=== PATIENT | male | born 1935 | race Caucasian/White ===

== ENCOUNTER 2019-09-21 11:05 | Inpatient (IN) ==
[2019-09-21] MEDS ORDERED: IOPAMIDOL 100 ML BOTTLE IV ONE (11:06)
[2019-09-21] MEDS ORDERED: ONDANSETRON 4 MG/2 ML VIAL IV ONE (11:13)
--- NOTE | 2019-09-21 11:24 | Emergency Department Note ---
Abdominal Pain HPI - General Chief Complaint: Abdominal Pain Stated Complaint: abdominal pain Time Seen by Provider: 09/21/19 11:08 Mode of arrival: ambulatory - History of Present Illness HPI Narrative: Reason for visit: She reports right lower abdominal quadrant pain at 10/10. He reports that this pain started abruptly at 9 AM this morning. Denies prior illness or symptoms to this. Patient reports waking up at 4 AM this morning and eating a sandwich with no issues. Reports his last bowel movement as yesterday and normal. Denies recent nausea vomiting or constipation. He reports that the moment he nausea. He denies recent illness, this of breath, chest pain, palpations or noticeable weakness. Reports the pain is specific to his right lower quadrant does not radiate. Reports the pain is constant and stabbing. Pain does not creaser relief with moderate palpation. No noticeable increase with rovesing's test. - Related Data Home Medications Medication Instructions Recorded Confirmed Albuterol Sulfate [Albuterol 8.5 gm IH Q4H 06/02/15 09/21/19 Sulfate Hfa] Ezetimibe [Zetia] 10 mg PO DAILY 06/02/15 09/21/19 Latanoprost Ophth Drops [Xalatan 1 gtt OS HS 06/02/15 09/21/19 Ophth Drops] Tiotropium [place] [Spiriva] 18 mcg INH DAILY 06/02/15 09/21/19 amlodipine 10 mg tablet 10 mg PO QAM tab 05/06/19 09/21/19 carboxymethylcellulose sodium 0.5 4 drp OPHTHALMIC QDAY ml 05/06/19 09/21/19 % eye drops clopidogrel 300 mg tablet 75 mg PO .COMPLEX 05/06/19 09/21/19 lisinopril 20 mg tablet 40 mg PO QAM tab 05/06/19 09/21/19 metoprolol tartrate 25 mg tablet 50 mg PO QDAY tab 05/06/19 09/21/19 famotidine 10 mg tablet 10 mg PO BID tab 08/25/19 09/21/19 Brimonidine Tartrate 15 ml OP DAILY 09/21/19 09/21/19 Cholecalciferol (Vitd3)/Vit K2 1 tab PO DAILY 09/21/19 09/21/19 [Dosoquin Tablet] Allergies Allergy/AdvReac Type Severity Reaction Status Date / Time cilostazol Allergy Unknown Unknown Verified 08/25/19 08:48 hydrochlorothiazide Allergy Unknown Unknown Verified 08/25/19 08:48 meloxicam Allergy Unknown Unknown Verified 08/25/19 08:48 pravastatin Allergy Unknown Unknown Verified 08/25/19 08:48 simvastatin Allergy Unknown Unknown Verified 08/25/19 08:48 Sulfa (Sulfonamide Allergy Unknown Unknown Verified 08/25/19 08:48 Antibiotics) Cilostazol Allergy Unknown Unknown Uncoded 08/25/19 08:48 Review of Systems Constitutional: Denies: fever, chills, weakness Eyes: Denies: vision change ENT ED: Denies: ear pain, throat pain Cardiovascular: Denies: chest pain, palpitations, dyspnea on exertion Respiratory: Denies: shortness of breath, cough Gastrointestinal: Reports: as per HPI, abdominal pain, nausea. Denies: vomiting, diarrhea, constipation, hematochezia Genitourinary: Denies: dysuria, frequency, urgency Musculoskeletal: Denies: back pain, joint pain Neurological: Denies: headache, weakness, numbness, confusion Endocrine: Denies: fatigue Hematological/Lymphatic: Denies: easy bleeding, easy bruising, lymphadenopathy Allergic/Immunologic: Denies: facial swelling Abdominal Pain PMH - Past Medical History Medical history: Reports: non-contributory, COPD, DVT (Describes history of blood clots upper thighs in the iliac area. States history of stents in this area.). Denies: atrial fibrillation, renal disease Denies: diverticulitis Surgical history ED: Reports: other (Reports history of upper left lobectomy of the lung.) - Social History Smoking status: Former smoker Physical Exam General appearance: alert, anxious (Due to pain, noticeable guarding the right lower quadrant.) Head: atraumatic, normocephalic, normal inspection Eye: Present: normal appearance, PERRL ENT: Present: normal exam, normal oropharynx, mucous membranes moist Neck: Present: normal inspection, full ROM, trachea midline. Absent: tenderness, lymphadenopathy Chest: Present: normal inspection, symmetric chest wall rise. Absent: tenderness Respiratory: Present: wheezes. Absent: normal lung sounds bilaterally (Patient reports history of left lung removal. I actually detect right lung. I do detect lung sounds in the left upper lobe, this may be due to resonance.), respiratory distress, accessory muscle use, prolonged expiratory phase Cardiovascular: Present: regular rate, normal rhythm, normal heart sounds Abdominal: Present: tenderness, guarding, normal bowel sounds. Absent: distention, rebound, organomegaly Extremities: Present: normal inspection, full ROM. Absent: tenderness, joint swelling Course Course Narrative: Plan is to control patient's pain and to form diagnostics to investigate source of right lower quadrant pain. The patient's age test of the BUN/creatinine will be performed via Chem-8 test prior to abdominal CT exam. A call was made to the surgeon for this patient. I talked to him. He has discussed that most likely treatment for this patient will be nonsurgical due to his age and history. I have discussed this patient with Dr. Larios. He will be by to see the patient screen for admission. Vital Signs Temperature 96.7 F L 09/21/19 11:14 Pulse Rate 86 09/21/19 11:14 Respiratory Rate 20 09/21/19 11:14 Blood Pressure 141/67 09/21/19 11:14 Pulse Oximetry (%) 98 09/21/19 11:14 Temperature 96.7 F L 09/21/19 11:14 Pulse Rate 99 H 09/21/19 14:57 Respiratory Rate 20 09/21/19 11:14 Blood Pressure 116/66 09/21/19 14:41 Pulse Oximetry (%) 97 09/21/19 14:57 Abdominal Pain - Differential Diagnosis Differential Diagnosis: Likely: abdominal pain, acute appendicitis, calculus of kidney, diverticulitis - Lab Data Result diagrams: 09/21/19 11:20 09/21/19 11:20 Lab Results 09/21/19 09/21/19 09/21/19 Range/Units 11:20 11:20 12:57 WBC 15.6 H (4.5-11.0) K/mcL RBC 4.36 L (4.50-5.90) M/mcL Hgb 13.8 (13.5-16.5) g/dL Hct 41.6 (41.0-55.0) % POC Hct 44.0 (41.0-55.0) % MCV 95.4 (80.0-100.0) fL MCH 31.7 (26.0-34.0) pg MCHC 33.2 (31.0-36.0) g/dL RDW 12.5 (11.5-14.5) % Plt Count 344 (140-440) K/mcL MPV 8.5 (7.4-10.4) fL Gran % 76.7 (38.0-78.0) % Lymph % (Auto) 12.8 L (15.5-49.0) % Kerr % (Auto) 9.6 (1.0-12.0) % Eos % (Auto) 0.6 (0.0-7.0) % Baso % (Auto) 0.3 (0.0-2.0) % Gran # 12.0 H (1.8-8.0) K/mcL Lymph # (Auto) 2.0 (1.5-4.8) K/mcL Kerr # (Auto) 1.5 H (0.1-0.9) K/mcL Eos # (Auto) 0.1 (0.0-0.7) K/mcL Baso # (Auto) 0 (0.0-0.3) K/mcL POC Sodium 136 (133-145) mmol/L Sodium 136 (133-145) mmol/L POC Potassium 4.4 (3.3-5.1) mmol/L Potassium 4.4 (3.3-5.1) mmol/L POC Chloride 103 (96-108) mmol/L Chloride 99 (96-108) mmol/L Carbon Dioxide 23 (22-30) mmol/L POC Total CO2 25 (22-30) mmol/L Anion Gap 14.0 (8-16) POC BUN 16 (8-23) mg/dl BUN 15 (8-23) mg/dl Creatinine 0.9 (0.7-1.2) mg/dl POC Creatinine 1.0 (0.7-1.2) mg/dl GFR Calculation 79 Glucose 106 H (70-105) mg/dL POC Glucose 106 H (70-105) mg/dL Calcium 10.0 (8.6-10.4) mg/dl POC WB Ioniz Calcium 1.24 (1.16-1.32) mmol/L Total Bilirubin 0.6 (0.0-1.0) mg/dL AST 19 (0-37) U/l ALT 13 (0-40) U/l Alkaline Phosphatase 90 (39-117) U/L Total Protein 8.1 (5.9-8.4) gm/dL Albumin 4.8 (3.2-5.2) gm/dL Globulin 3.3 (2.2-3.7) gm/dL Albumin/Globulin Ratio 1.5 (1.0-2.3) Urine Color Yellow Urine Appearance Clear Urine pH 6.0 (5.0-9.0) Ur Specific [place] 1.036 H (1.000-1.035) Urine Protein Neg (NEG) mg/dL Urine Glucose (UA) Negative (NEG) mg/dL Urine Ketones Neg (NEG) mg/dL Urine Occult Blood Neg (<0.03) mg/dL Urine Nitrate Neg (NEG) Urine Bilirubin Neg (NEG) mg/dL Urine Urobilinogen Neg (NEG) mg/dL Ur Leukocyte Esterase Neg (NEG) /uL Ur Culture Indicated? No Disposition Pt seen by TEA [facility]ENDER/PA only: No Clinical Impression: Appendicitis Qualifiers: Acute appendicitis type: with localized peritonitis Appendicitis gangrene presence: without gangrene Appendicitis perforation presence: without perforation Appendicitis abscess presence: without abscess Disposition: Xfer As Inpt ([facility]) Condition: Fair Referrals: Jair Chakraborty MD [Primary Care Provider] -
[2019-09-21 11:25] LABS: POC Blood Urea Nitrogen 16 mg/dl (8-23); POC CO2 25 mmol/L (22-30); POC Calcium, Ionized 1.24 mmol/L (1.16-1.32); POC Chloride 103 mmol/L (96-108); POC Glucose, Random 106 mg/dL (70-105); POC Potassium 4.4 mmol/L (3.3-5.1); POC Sodium 136 mmol/L (133-145)
[2019-09-21] MEDS: HYDROmorphone 2 MG/ML VIAL IV PRN ×6 (11:32→21:55)
[2019-09-21 11:57] LABS: Basophils # (Auto) 0 K/mcL (0.0-0.3); Basophils % (Auto) 0.3 % (0.0-2.0); Eosinophils # (Auto) 0.1 K/mcL (0.0-0.7); Eosinophils % (Auto) 0.6 % (0.0-7.0); Granulocytes % (Auto) 76.7 % (38.0-78.0); Hematocrit 41.6 % (41.0-55.0); Hemoglobin 13.8 g/dL (13.5-16.5); Lymphocytes % (Auto) 12.8 % (15.5-49.0); Mean Cell Volume 95.4 fL (80.0-100.0); Mean Corpuscular HGB Conc 33.2 g/dL (31.0-36.0); Mean Platelet Volume 8.5 fL (7.4-10.4); Monocytes # (Auto) 1.5 K/mcL (0.1-0.9); Monocytes % (Auto) 9.6 % (1.0-12.0); Platelet Count 344 K/mcL (140-440); RBC 4.36 M/mcL (4.50-5.90); Red Cell Distribution Width 12.5 % (11.5-14.5); WBC 15.6 K/mcL (4.5-11.0)
[2019-09-21 12:16] LABS: ALT/SGPT 13 U/l (0-40); AST/SGOT 19 U/l (0-37); Albumin 4.8 gm/dL (3.2-5.2); Albumin/Globulin Ratio 1.5 (1.0-2.3); Alkaline Phosphatase 90 U/L (39-117); Bilirubin,Total 0.6 mg/dL (0.0-1.0); Blood Urea Nitrogen 15 mg/dl (8-23); Carbon Dioxide 23 mmol/L (22-30); Chloride 99 mmol/L (96-108); Globulin 3.3 gm/dL (2.2-3.7); Glomerular Filtration Rate 79; Glucose 106 mg/dL (70-105)
--- NOTE | 2019-09-21 12:35 | Cat Scan Report ---
CLINICAL INFORMATION: Right lower quadrant pain COMPARISON: 06/08/2018 TECHNIQUE: Following enteric contrast, 80 cc of Isovue-[id number] were injected intravenously, and 60 seconds later, 0.625 mm helical slices were obtained from the mid heart through the subtrochanteric regions. Following reconstruction, 2.5 mm sagittal, coronal and axial reformatted images were processed and reviewed at bone, lung and soft tissue windows. Five minutes later, 0.625 mm helical slices were obtained from the mid heart through the kidneys and viewed at soft tissue windows.The exam was performed using radiation dose optimization techniques including, but not limited to, automated exposure control, adjustment of the mA and/or kV according to patient size and use of iterative reconstruction technique. FINDINGS: Lung bases show scattered bilateral pleural calcifications, as previously seen, compatible with asbestos exposure. There is also stable pericardial calcification. Mild interstitial disease within the visualized inferior lower and right middle lobes is new from the previous CT. The heart is mildly enlarged but unchanged There are no effusions. Abdominal images show the gallbladder and bile ducts, liver, both kidneys, right adrenal gland, spleen and pancreas are normal in size, configuration and attenuation without focal lesion. A 3 cm dense calcification in left adrenal gland is again seen in is likely stigmata of old adrenal hemorrhage or inflammation. The aorta is normal in diameter but contains very heavy fibrofatty and calcific atherosclerotic lack. The celiac, SMA and renal arteries are patent. A stent is noted in the right common iliac artery with mild in-stent restenosis. There is very heavy fibrofatty calcific plaque within all iliac arteries with a stenosis greater than 90% distal left external iliac artery. There is also aneurysmal enlargement of the right common femoral artery: 1.6 cm in diameter and 5 cm in length Cm in diameter. A stent in proximal left SFA which appears to be patent. The appendix is dilated with diameter 12 mm with wall thickening and periappendiceal inflammation compatible with simple appendicitis. It is located in the inferior pericecal region. Stomach small bowel and large bowel are normal. Bone windows show no osseous abnormalities. At L4-5, there is a large left-sided disc spur complex results in severe left IV foraminal narrowing. IMPRESSION: 1. Simple appendicitis. The appendix is located in the inferior pericecal region. 2. 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 3. Greater than 90% stenosis of the distal left external iliac artery. Please correlate with asymmetry groin pulses and left leg claudication. Consider referral to interventional radiology for stenting. 4. 3 cm left adrenal calcification again seen. It is likely stigmata of old adrenal hemorrhage or infection. 5. 1.9 cm simple cyst in the right renal pelvis that stable. 6. Bilateral pleural calcification suggestive of asbestos exposure. Moderate interstitial disease in the inferior lower, right middle lobes and lingula is new from a comparison CT over one year prior. Exact chronicity and etiology unknown. 7. Large left L4-5 disc protrusion resulting in severe left IV foraminal narrowing impinging the exiting left L4 nerve root Interpreted and Authenticated by: Dalton Reyes 09/21/19
[2019-09-21] MEDS ORDERED: PIPERACILLIN SODIUM/TAZOBACTAM 3.375 GM in DEXTROSE 5% IN WATER 50 ML IV ONE (12:47)
[2019-09-21 13:22] LABS: Appearance,Urine CLEAR; Bilirubin,Urine NEG (NEG); Color,Urine YELLOW; Culture Indicated,Urine NO; Glucose,Urine (UA) NEGATIVE (NEG); Ketones,Urine NEG (NEG); Leukocyte Esterase,Urine NEG /uL (NEG); Nitrate,Urine NEG (NEG); Protein,Urine NEG (NEG); Specific Gravity,Urine 1.036 (1.000-1.035); Urine Blood NEG mg/dL (<0.03); Urobilinogen,Urine NEG (NEG)
--- NOTE | 2019-09-21 13:41 | XRay Report ---
CLINICAL INFORMATION: Pre surg COMPARISON: 07/14/2019 FINDINGS: Left upper lobectomy changes noted with pleural parenchymal scarring in the paramediastinal left upper lobe with left lung volume loss. Cardiomediastinal silhouette and pulmonary vessels remain normal. COPD changes noted. Mild diffuse interstitial fibrosis with bibasilar scarring noted. IMPRESSION: COPD changes and interstitial fibrosis predominantly in the mid and lower lungs. No acute disease. Interpreted and Authenticated by: Dalton Reyes 09/21/19
[2019-09-21] MEDS ORDERED: NALOXONE HCL 0.4 MG/ML VIAL IV PRN (14:20)
[2019-09-21] MEDS ORDERED: ACETAMINOPHEN 325 MG TABLET PO PRN (14:20)
[2019-09-21] MEDS ORDERED: ONDANSETRON 4 MG/2 ML VIAL IV PRN (14:20)
[2019-09-21] MEDS ORDERED: PIPERACILLIN SODIUM/TAZOBACTAM 3.375 GM in DEXTROSE 5% IN WATER 50 ML IV SCH (14:30)
--- NOTE | 2019-09-21 14:36 | General Surg History&Physical ---
History of Present Illness Patient information: Note initiated : 09/21/19 at 2:32 pm Service Date, if different from initiated Date: [] Patient: Heber Stewart a 84 y/o M admitted on for abdominal pain. Chief Complaint: Pain HPI: Mr. Stewart is a 84 year old M who states that he woke up at his usual time at 2:00 in the morning and at about 4:00 in the morning he recalls experiencing significant pain in the right lower quadrant. He ate breakfast and did not have any relief. He had never had similar pain in the past. He stated that he had some nausea but no vomiting. He admits to constipation recently and denies diarrhea. He also denies having had fever or chills. He was brought to the emergency room by his and a CT scan was done that showed simple appendicitis. He is on Plavix through the [facility] and [id number] presumably for history of peripheral vascular disease. He states that he has complex stenting of both lower extremity arteries. He denies having had a heart attack in the past or having coronary stents. He denies any history of stroke. He reports having had part of his right lung removed in the past for cancer and approximately 2013 that leaves him needing to use home oxygen therapy. Review of Systems - Constitutional no chills, no fever(s) - Gastrointestinal abdominal pain, constipation, no diarrhea, no vomiting Past History Past medical history: Encounter for Health Maintenance Examination in Adult (Acute) Asbestos exposure (Chronic) Alcohol abuse (Chronic) History of lobectomy of lung (Chronic) History of eye surgery (Chronic 12/05/15) Squamous cell carcinoma (Chronic ~02/2014) History of thoracic surgery (Chronic 05/26/14) History of vascular surgery (Chronic) History of lung biopsy (Chronic) History of surgery (Chronic) Hx of adenomatous colonic polyps (Chronic) Dyspepsia (Chronic) Lumbar sprain (Chronic) Tinnitus (Chronic) Hypoxemia (Chronic) Anemia (Chronic) Edema (Chronic) Helicobacter pylori gastritis (Chronic) PVD (peripheral vascular disease) (Chronic) PUD (peptic ulcer disease) (Chronic) Glaucoma (Chronic) Hyperlipemia (Chronic) Tendinitis of right wrist (Chronic) 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 Father No problems noted. Past social history: . Retired/disabled [employer] . Former smoker Medications and Allergies Home Medications Medication Instructions Recorded Confirmed Type Albuterol Sulfate [Albuterol 8.5 gm IH Q4H 06/02/15 09/21/19 History Sulfate Hfa] Ezetimibe [Zetia] 10 mg PO DAILY 06/02/15 09/21/19 History Latanoprost Ophth Drops [Xalatan 1 gtt OS HS 06/02/15 09/21/19 History Ophth Drops] Tiotropium [place] [Spiriva] 18 mcg INH DAILY 06/02/15 09/21/19 History amlodipine 10 mg tablet 10 mg PO QAM tab 05/06/19 09/21/19 History carboxymethylcellulose sodium 0.5 4 drp OPHTHALMIC QDAY ml 05/06/19 09/21/19 History % eye drops clopidogrel 300 mg tablet 75 mg PO .COMPLEX 05/06/19 09/21/19 History lisinopril 20 mg tablet 40 mg PO QAM tab 05/06/19 09/21/19 History metoprolol tartrate 25 mg tablet 50 mg PO QDAY tab 05/06/19 09/21/19 History famotidine 10 mg tablet 10 mg PO BID tab 08/25/19 09/21/19 History Brimonidine Tartrate 15 ml OP DAILY 09/21/19 09/21/19 History Cholecalciferol (Vitd3)/Vit K2 1 tab PO DAILY 09/21/19 09/21/19 History [Dosoquin Tablet] Allergies Allergy/AdvReac Type Severity Reaction Status Date / Time cilostazol Allergy Unknown Unknown Verified 08/25/19 08:48 hydrochlorothiazide Allergy Unknown Unknown Verified 08/25/19 08:48 meloxicam Allergy Unknown Unknown Verified 08/25/19 08:48 pravastatin Allergy Unknown Unknown Verified 08/25/19 08:48 simvastatin Allergy Unknown Unknown Verified 08/25/19 08:48 Sulfa (Sulfonamide Allergy Unknown Unknown Verified 08/25/19 08:48 Antibiotics) Cilostazol Allergy Unknown Unknown Uncoded 08/25/19 08:48 Exam Temp Pulse Resp BP Pulse Ox 96.7 F L 108 H 20 131/74 97 09/21/19 11:14 09/21/19 14:21 09/21/19 11:14 09/21/19 14:21 09/21/19 14:21
--- NOTE | 2019-09-21 14:47 | General Surg History&Physical ---
History of Present Illness Patient information: Note initiated : 09/21/19 at 2:44 pm Service Date, if different from initiated Date: [] Patient: Heber Stewart 84 y/o M admitted on for abdominal pain. Chief Complaint: [] HPI: Mr. Stewart is a 84 year old M Medications and Allergies Home Medications Medication Instructions Recorded Confirmed Type Albuterol Sulfate [Albuterol 8.5 gm IH Q4H 06/02/15 09/21/19 History Sulfate Hfa] Ezetimibe [Zetia] 10 mg PO DAILY 06/02/15 09/21/19 History Latanoprost Ophth Drops [Xalatan 1 gtt OS HS 06/02/15 09/21/19 History Ophth Drops] Tiotropium [place] [Spiriva] 18 mcg INH DAILY 06/02/15 09/21/19 History amlodipine 10 mg tablet 10 mg PO QAM tab 05/06/19 09/21/19 History carboxymethylcellulose sodium 0.5 4 drp OPHTHALMIC QDAY ml 05/06/19 09/21/19 History % eye drops clopidogrel 300 mg tablet 75 mg PO .COMPLEX 05/06/19 09/21/19 History lisinopril 20 mg tablet 40 mg PO QAM tab 05/06/19 09/21/19 History metoprolol tartrate 25 mg tablet 50 mg PO QDAY tab 05/06/19 09/21/19 History famotidine 10 mg tablet 10 mg PO BID tab 08/25/19 09/21/19 History Brimonidine Tartrate 15 ml OP DAILY 09/21/19 09/21/19 History Cholecalciferol (Vitd3)/Vit K2 1 tab PO DAILY 09/21/19 09/21/19 History [Dosoquin Tablet] Allergies Allergy/AdvReac Type Severity Reaction Status Date / Time cilostazol Allergy Unknown Unknown Verified 08/25/19 08:48 hydrochlorothiazide Allergy Unknown Unknown Verified 08/25/19 08:48 meloxicam Allergy Unknown Unknown Verified 08/25/19 08:48 pravastatin Allergy Unknown Unknown Verified 08/25/19 08:48 simvastatin Allergy Unknown Unknown Verified 08/25/19 08:48 Sulfa (Sulfonamide Allergy Unknown Unknown Verified 08/25/19 08:48 Antibiotics) Cilostazol Allergy Unknown Unknown Uncoded 08/25/19 08:48 Exam Temp Pulse Resp BP Pulse Ox 96.7 F L 102 H 20 116/66 97 09/21/19 11:14 09/21/19 14:39 09/21/19 11:14 09/21/19 14:39 09/21/19 14:39 - General physical appearance well developed, well nourished, moderate distress, moderate pain. negative: no distress - Eyes PERRL, normal ocular movement - ENT normal pinna, normal nares, normal mucosa, no hearing loss, no congestion - Head Head exam IM: Present: atraumatic, normocephalic - Neck no masses, no bruits, trachea midline, no lymphadenopathy, no venous distension - Cardiovascular Cardiovascular exam IM: Present: normal rate and rhythm - Respiratory normal expansion, normal respiratory effort - Abdomen Abdomen: Present: tender (Generalized pain on moderate palpation, most in the RLQ). Absent: guarding, rebound - Integumentary Present: no rash, no growths, no abnormal pigmentation - Neurologic Present: normal coordination, normal sensation - Psychiatric Present: oriented to time, oriented to person, oriented to place, speech is normal, memory intact Results - Results CT scan - abdomen: report reviewed, image reviewed Assessment and Plan (1) Appendicitis Mister Stewart felt to have early appendicitis. He is also chronically on Plavix having taken his medications earlier today. We discussed the options of surgery despite being on Plavix and the risks involved with operative therapy at this point in time. We also discussed the possibility of treating the appendicitis with IV antibiotics and that if he responds to this delaying surgery such that he could have his appendix out perhaps in a month or 2 and being off of Plavix for a week for that interval appendectomy. He is anxious to not have the pain again like he had earlier this morning. At the end of her conversation he was agreeable to treat with IV antibiotics and observe overnight and to review in the morning to see how he is progressing. At that time we agreed to discuss continued nonoperative approach versus proceeding with appendectomy. Status: Acute Qualifiers: Acute appendicitis type: with localized peritonitis Appendicitis gangrene presence: without gangrene Appendicitis perforation presence: without perforation Appendicitis abscess presence: without abscess (2) On clopidogrel therapy See discussion above. Status: Acute
[2019-09-21] MEDS: 0.9 % SODIUM CHLORIDE 1,000 ML IV SCH (15:22)
--- NOTE | 2019-09-21 16:03 | Internal Medicine Consult Note ---
Medical - CN: HPI - Data of Consult Consult date: 09/21/19 Requesting physician: Gino Judd Primary Care Provider: Jair Chakraborty - Consult Narrative Reason for consult: Medical evaluation and male with multiple comorbidities and appendicitis History of present illness: Mr. Stewart is a 84 year old M with a history of COPD, intermittently oxygen requiring, asbestosis, left upper lobectomy, hypertension, peripheral arterial disease who presents to the emergency department abdominal pain. Patient states he was up early this morning, which is his usual and ate breakfast about 4. At 9 AM, he is preparing a sandwich for his next meal when he developed severe stabbing acute onset of right lower quadrant pain which doubled him over. He tried eating his sandwich, and finished about half of it but had to stop because of pain. Did not seem to worsen the pain, but it did not ameliorated either. Patient presents to the emergency department because of the pain, CT scan reveals simple appendicitis. Patient denies any fevers or chills. He had nausea with no emesis earlier this morning. He has had constipation which is been ongoing for the last several months. He did have a normal bowel movement yesterday. Patient was evaluated by Dr. Judd for surgery. Patient is currently on clopido grel for peripheral arterial disease as multiple medical comorbidities. After discussion, decision was made to treat with antibiotics allowing for an elective appendectomy in the future. Patient has COPD, as mentioned he is on home oxygen up to 3 L a minute at times. 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 He also has peripheral arterial disease and has had stenting to his iliac and SFA based upon CT findings. This was done at [facility] in [place]. Also has a history of reflux. There is no history of coronary disease, no history of VA no history of congestive heart failure. No history of renal disease. No history of diabetes or thyroid disorder. 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 Atrial fibrillation (Chronic)patient does not recognize this diagnosis, current ECG is sinus rhythm Alcohol abuse (Chronic) Cirrhosis of liver (Chronic) GERD (gastroesophageal reflux disease) (Chronic) Helicobacter pylori gastritis (Chronic) PUD (peptic ulcer disease) (Chronic) Lumbar sprain (Chronic) Tinnitus (Chronic) Anemia (Chronic) Edema (Chronic) Glaucoma (Chronic) Tendinitis of right wrist (Chronic) Impingement syndrome of left shoulder (Chronic) Arthritis of both hips (Chronic) Surgical history: History of lobectomy of lung (Chronic) due to squamous cell lung cancer (~02/2014) History of eye surgery (Chronic 12/05/15) History of thoracic surgery (Chronic 05/26/14) History of vascular surgery (Chronic) History of lung biopsy (Chronic) History of surgery (Chronic) Hx of adenomatous colonic polyps (Chronic) History of bilateral lower extremity stenting, done at [facility] in [place] Pertinent family history: Mother No problems noted. Father No problems noted. Social history: Patient lives with his of over 60 years. He is a former smoker, quitting in 2006. He drinks 4 beers a day. Medical - CN: Meds Home Medications Medication Instructions Recorded Confirmed Type Albuterol Sulfate [Albuterol 8.5 gm IH Q4H 06/02/15 09/21/19 History Sulfate Hfa] Ezetimibe [Zetia] 10 mg PO DAILY 06/02/15 09/21/19 History Latanoprost Ophth Drops [Xalatan 1 gtt OS HS 06/02/15 09/21/19 History Ophth Drops] Tiotropium [place] [Spiriva] 18 mcg INH DAILY 06/02/15 09/21/19 History amlodipine 10 mg tablet 10 mg PO QAM tab 05/06/19 09/21/19 History carboxymethylcellulose sodium 0.5 4 drp OPHTHALMIC QDAY ml 05/06/19 09/21/19 History % eye drops clopidogrel 300 mg tablet 75 mg PO .COMPLEX 05/06/19 09/21/19 History lisinopril 20 mg tablet 40 mg PO QAM tab 05/06/19 09/21/19 History metoprolol tartrate 25 mg tablet 50 mg PO QDAY tab 05/06/19 09/21/19 History famotidine 10 mg tablet 10 mg PO BID tab 08/25/19 09/21/19 History Brimonidine Tartrate 15 ml OP DAILY 09/21/19 09/21/19 History Cholecalciferol (Vitd3)/Vit K2 1 tab PO DAILY 09/21/19 09/21/19 History [Dosoquin Tablet] Allergies Allergy/AdvReac Type Severity Reaction Status Date / Time cilostazol Allergy Unknown Unknown Verified 08/25/19 08:48 hydrochlorothiazide Allergy Unknown Unknown Verified 08/25/19 08:48 meloxicam Allergy Unknown Unknown Verified 08/25/19 08:48 pravastatin Allergy Unknown Unknown Verified 08/25/19 08:48 simvastatin Allergy Unknown Unknown Verified 08/25/19 08:48 Sulfa (Sulfonamide Allergy Unknown Unknown Verified 08/25/19 08:48 Antibiotics) Cilostazol Allergy Unknown Unknown Uncoded 08/25/19 08:48 Medical - CN: Exam - Constitutional Vitals: Temp Pulse Resp BP Pulse Ox 96.7 F L 99 H 20 116/66 97 09/21/19 15:00 09/21/19 15:00 09/21/19 15:00 09/21/19 15:00 09/21/19 15:00 Exam: GENERAL: Alert, oriented, in no acute distress while sitting still, thin, cooperative. HEENT: Atraumatic. PERRL at 3 mm, prominent arcus senilis, conjunctiva clear, no scleral icterus. Hearing grossly intact. Oropharynx with moist mucous membranes, no pharyngeal erythema or exudate. Tongue midline, palate rises symmetrically. NECK: Supple without meningismus, no thyromegaly appreciated RESPIRATORY: Breath sounds diminished at right base, mildly decreased throughout without wheezes or rales. Respiratory effort is unlabored. CARDIOVASCULAR: Regular rate and rhythm, 2/6 systolic murmur at the upper right sternal border that radiates into the carotids. No peripheral edema. Carotid pulses 2+ GI: Abdomen soft, mild to moderate tenderness with palpation in the right lower quadrant with voluntary guarding. Bowel sounds diminished. No hepatosp lenomegaly. MUSCULOSKELETAL: No joint erythema or swelling, normal range of motion in all extremities. SKIN: Warm, dry. Skin turgor normal. NEUROLOGIC: Cranial nerves II through XII grossly intact. Muscle mass diminished. Strength 5/5 in the upper and lower extremities. Sensation intact to light touch bilaterally. PSYCHIATRIC: Alert, oriented x3, normal mood and affect; some decreased insight to medical illnesses and medications taken. Medical - CN: Result - Labs CBC & Chem 7: 09/21/19 11:20 09/21/19 14:39 Labs: Short CBC 09/21/19 Range/Units 11:20 WBC 15.6 H (4.5-11.0) K/mcL Hgb 13.8 (13.5-16.5) g/dL Hct 41.6 (41.0-55.0) % Plt Count 344 (140-440) K/mcL BMP 09/21/19 11:20 Sodium 136 Potassium 4.4 Chloride 99 Carbon Dioxide 23 BUN 15 Creatinine 0.9 Glucose 106 H Calcium 10.0 Liver Function 09/21/19 Range/Units 11:20 Total Bilirubin 0.6 (0.0-1.0) mg/dL AST 19 (0-37) U/l ALT 13 (0-40) U/l Alkaline Phosphatase 90 (39-117) U/L Albumin 4.8 (3.2-5.2) gm/dL Urine 09/21/19 Range/Units 12:57 Urine Color Yellow Urine Appearance Clear Urine pH 6.0 (5.0-9.0) Ur Specific [place] 1.036 H (1.000-1.035) Urine Protein Neg (NEG) mg/dL Urine Glucose (UA) Negative (NEG) mg/dL - EKG Data -: EKG Reviewed by Myself EKG shows normal: sinus rhythm (Abnormal intervals: LBBB) - Imaging and Cardiology CT scan - abdomen Status: image reviewed by me Additional comments: IMPRESSION: 1. Simple appendicitis. The appendix is located in the inferior pericecal region. 2. 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 3. Greater than 90% stenosis of the distal left external iliac artery. Please correlate with asymmetry groin pulses and left leg claudication. Consider referral to interventional radiology for stenting. 4. 3 cm left adrenal calcification again seen. It is likely stigmata of old adrenal hemorrhage or infection. 5. 1.9 cm simple cyst in the right renal pelvis that stable. 6. Bilateral pleural calcification suggestive of asbestos exposure. Moderate interstitial disease in the inferior lower, right middle lobes and lingula is new from a comparison CT over one year prior. Exact chronicity and etiology unknown. 7. Large left L4-5 disc protrusion resulting in severe left IV foraminal narrowing impinging the exiting left L4 nerve root Chest x-ray Status: image reviewed by me Additional comments: IMPRESSION: COPD changes and interstitial fibrosis predominantly in the mid and lower lungs. No acute disease. Medical - CN: A/P - Narrative A/P Narrative: 84-year-old male presenting with abrupt onset of right lower quadrant tendern ess, has leukocytosis and simple appendicitis on CT. Acute appendicitis. Patient currently on clopidogrel with risk of operative bleeding. Management decisions discussed with Dr. Judd. Initially will be conservative management with antibiotics to see if the patient can be treated through this acute attack. In regards to surgical risk, no history of coronary disease, though he likely has atherosclerosis of the coronaries as he has significant peripheral arterial disease. He has no anginal symptoms with exertion. No current COPD exacerbation, no evidence of CHF. If he needs emergent surgery, further re-stratification would unlikely change that need. If he is deferring surgery to convalescence, preop evaluation including echocardiogram may be useful. IV Zosyn Follow CBC and exam Hold antiplatelet agents Peripheral arterial disease. Patient with stenting to the iliac and SFA a rteries in the past. He is on clopidogrel. His medication list, which indicated the films in 2017 showed clopidogrel 75 mg. Patient states that he now takes one half of the tablet that is a blood thinner because he had been experiencing epistaxis. He may be taking 37.5 mg of clopidogrel daily. Currently is not having any claudication symptoms. Continue ezetimibe Holding clopidogrel COPD with oxygen dependence. Wears up to 3 L/min at times at home secondary to dyspnea. 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 No evidence of acute exacerbation. On Spiriva and as needed albuterol at home. Continue Spiriva PRN albuterol nebs Target SaO2 92-96% for supplemental oxygen Glaucoma. Continue home regimen Hypertension. On lisinopril, metoprolol and amlodipine. Blood pressures currently controlled in the hospital. Continue home regimen Will continue to follow
[2019-09-21 16:18] LABS: ALT/SGPT 12 U/l (0-40); AST/SGOT 19 U/l (0-37); Albumin 4.4 gm/dL (3.2-5.2); Albumin/Globulin Ratio 1.3 (1.0-2.3); Alkaline Phosphatase 84 U/L (39-117); Bilirubin,Total 0.7 mg/dL (0.0-1.0); Blood Urea Nitrogen 15 mg/dl (8-23); Calcium 9.7 mg/dl (8.6-10.4); Carbon Dioxide 24 mmol/L (22-30); Chloride 96 mmol/L (96-108); Globulin 3.4 gm/dL (2.2-3.7); Glomerular Filtration Rate 69; Glucose 108 mg/dL (70-105)
[2019-09-21] MEDS: PANTOPRAZOLE 40 MG VIAL IV SCH (17:10)
[2019-09-21] MEDS: POLYETHYLENE GLYCOL 3350 17 GM PACKET PO SCH ×2 (17:11→21:25)
[2019-09-21] MEDS: PIPERACILLIN SODIUM/TAZOBACTAM 3.375 GM in DEXTROSE 5% IN WATER 50 ML IV SCH ×2 (18:40→23:51)
[2019-09-21] MEDS ORDERED: CARBOXYMETHYLCELLULOSE SODIUM 1 EACH DROPER.GEL OU PRN (18:49)
[2019-09-21] MEDS ORDERED: HYDROmorphone 2 MG/ML VIAL ONE ×2 (18:49→21:30)
[2019-09-21] MEDS ORDERED: ALBUTEROL SULFATE 2.5 MG/3 ML NEBULIZER NEB PRN (18:51)
[2019-09-21] MEDS: DOCUSATE SODIUM 100 MG CAPSULE PO SCH (21:25)
[2019-09-21] MEDS: LATANOPROST OPHTH DROPS 2.5ML BOTTLE OS SCH (21:25)
[2019-09-21] MEDS: 0.9 % SODIUM CHLORIDE 10 ML SYRINGE IV SCH (21:25)
[2019-09-21] MEDS: SENNOSIDES 1 TABLET PO SCH (21:25)
[2019-09-22] MEDS: HYDROmorphone 2 MG/ML VIAL IV PRN ×3 (01:42→08:50)
[2019-09-22] MEDS: PIPERACILLIN SODIUM/TAZOBACTAM 3.375 GM in DEXTROSE 5% IN WATER 50 ML IV SCH ×4 (05:39→23:31)
[2019-09-22] MEDS: 0.9 % SODIUM CHLORIDE 10 ML SYRINGE IV SCH ×3 (05:41→21:09)
[2019-09-22] MEDS: 0.9 % SODIUM CHLORIDE 1,000 ML IV SCH ×3 (05:41→23:08)
[2019-09-22 06:42] LABS: Basophils # (Auto) 0.04 K/mcL (0.00-0.30); Basophils % (Auto) 0.2 % (0.0-2.0); Eosinophils # (Auto) 0.08 K/mcL (0.00-0.70); Eosinophils % (Auto) 0.5 % (0.0-7.0); Granulocytes % (Auto) 82.1 % (38.0-78.0); Hematocrit 35.3 % (40.1-51.0); Hemoglobin 11.6 g/dL (13.7-17.5); Lymphocytes # (Auto) 1.95 K/mcL (1.50-4.80); Lymphocytes % (Auto) 11.8 % (15.5-49.0); Mean Cell Volume 96.7 fL (80.0-100.0); Mean Corpuscular HGB Conc 32.9 g/dL (31.0-36.0); Mean Platelet Volume 8.9 fL (7.4-10.4); Monocytes # (Auto) 0.89 K/mcL (0.10-0.90); Monocytes % (Auto) 5.4 % (1.0-12.0); Platelet Count 293 K/mcL (140-440); RBC 3.65 M/mcL (4.63-6.08); Red Cell Distribution Width 12.8 % (11.5-14.5); WBC 16.5 K/mcL (4.50-11.00)
[2019-09-22 06:46] LABS: ALT/SGPT 11 U/l (0-40); AST/SGOT 26 U/l (0-37); Albumin 3.8 gm/dL (3.2-5.2); Albumin/Globulin Ratio 1.3 (1.0-2.3); Alkaline Phosphatase 63 U/L (39-117); Bilirubin,Total 0.7 mg/dL (0.0-1.0); Blood Urea Nitrogen 16 mg/dl (8-23); Carbon Dioxide 25 mmol/L (22-30); Chloride 98 mmol/L (96-108); Globulin 2.9 gm/dL (2.2-3.7); Glomerular Filtration Rate 69; Glucose 76 mg/dL (70-105)
[2019-09-22] MEDS ORDERED: SCOPOLAMINE 1 PATCH PATCH TOPICAL PRN (08:09)
[2019-09-22] MEDS ORDERED: IPRATROPIUM/ALBUTEROL 3 ML AMPUL.NEB NEB PRN ×2 (08:09→10:25)
--- NOTE | 2019-09-22 08:23 | General Surgery Progress Note ---
Subjective Patient reports: still having pain, afebrile Narrative: Note initiated : 09/22/19 at 8:21 am Service Date, if different from initiated Date: [] Patient: Heber Stewart 84 y/o M admitted on 09/21/19 for abdominal pain. Chief Complaint: Still having abdominal pain "I need to have this out." Mistpiotr Stewart states that overnight he's had periods without pain followed by periods of fairly significant pain. He does not believe that his pain symptoms are any better than they were yesterday in the emergency room. Pertinent ROS: He denies fever, chills, nausea, shortness of breath. Objective Temp Pulse Resp BP Pulse Ox 98.1 F 83 20 100/58 96 09/22/19 03:25 09/22/19 03:25 09/22/19 03:25 09/22/19 03:25 09/22/19 03:25 - Additional Data Intake & Output - Last 24 hours: Intake & Output 09/20/19 09/21/19 09/22/19 09/23/19 05:59 05:59 05:59 05:59 Intake Total 1150 Output Total 550 Balance 600 Weight 110 lb - General physical appearance moderate distress, moderate pain - Respiratory normal respiratory effort - Cardiovascular Cardiovascular exam: Present: normal rate and rhythm - Abdomen tender (right lateral abdomen), guarding - Labs 09/22/19 04:24 09/22/19 04:24 Diabetes panel 09/21/19 09/21/19 09/22/19 Range/Units 11:20 14:39 04:24 Sodium 136 134 136 (133-145) mmol/L Potassium 4.4 4.2 4.0 (3.3-5.1) mmol/L Chloride 99 96 98 (96-108) mmol/L Carbon Dioxide 23 24 25 (22-30) mmol/L BUN 15 15 16 (8-23) mg/dl Creatinine 0.9 1.0 1.0 (0.7-1.2) mg/dl Glucose 106 H 108 H 76 (70-105) mg/dL Calcium 10.0 9.7 9.0 (8.6-10.4) mg/dl AST 19 19 26 (0-37) U/l ALT 13 12 11 (0-40) U/l Alkaline Phosphatase 90 84 63 (39-117) U/L Total Protein 8.1 7.8 6.7 (5.9-8.4) gm/dL Albumin 4.8 4.4 3.8 (3.2-5.2) gm/dL Calcium panel 09/21/19 09/21/19 09/22/19 Range/Units 11:20 14:39 04:24 Calcium 10.0 9.7 9.0 (8.6-10.4) mg/dl Albumin 4.8 4.4 3.8 (3.2-5.2) gm/dL Pituitary panel 09/21/19 09/21/19 09/22/19 Range/Units 11:20 14:39 04:24 Sodium 136 134 136 (133-145) mmol/L Potassium 4.4 4.2 4.0 (3.3-5.1) mmol/L Chloride 99 96 98 (96-108) mmol/L Carbon Dioxide 23 24 25 (22-30) mmol/L BUN 15 15 16 (8-23) mg/dl Creatinine 0.9 1.0 1.0 (0.7-1.2) mg/dl Glucose 106 H 108 H 76 (70-105) mg/dL Calcium 10.0 9.7 9.0 (8.6-10.4) mg/dl Adrenal panel 09/21/19 09/21/19 09/22/19 Range/Units 11:20 14:39 04:24 Sodium 136 134 136 (133-145) mmol/L Potassium 4.4 4.2 4.0 (3.3-5.1) mmol/L Chloride 99 96 98 (96-108) mmol/L Carbon Dioxide 23 24 25 (22-30) mmol/L BUN 15 15 16 (8-23) mg/dl Creatinine 0.9 1.0 1.0 (0.7-1.2) mg/dl Glucose 106 H 108 H 76 (70-105) mg/dL Calcium 10.0 9.7 9.0 (8.6-10.4) mg/dl Total Bilirubin 0.6 0.7 0.7 (0.0-1.0) mg/dL AST 19 19 26 (0-37) U/l ALT 13 12 11 (0-40) U/l Alkaline Phosphatase 90 84 63 (39-117) U/L Total Protein 8.1 7.8 6.7 (5.9-8.4) gm/dL Albumin 4.8 4.4 3.8 (3.2-5.2) gm/dL Assessment and Plan (1) Appendicitis Status: Acute Assessment and plan: His pain symptoms and leukocytosis do not appear to be responding to antibiotic therapy. We discussed the indications and risks for laparoscopic possibly open cholecystectomy. He expresses that he would like to proceed with surgery which believe is reasonable given the above. With this in mind we'll plan laparoscopic possible open appendectomy today. Following the above decision and plan I spoke with the patient's by phone. Current Visit: Yes (2) On clopidogrel therapy Status: Acute Assessment and plan: After discussion with the patient regarding the theoretical increased risk for bleeding in a patient on Plavix therapy. We discussed that the risk appears to be fairly low particularly compared to the risks of appendicitis not responding as expected to antibiotic therapy. He voices understanding and wishes to proceed with appendectomy. Current Visit: Yes - Time Spent With Patient Total time spent is greater than 50% in coordination of care (as documented) at patient's floor/unit and/or counseling patient: 15 - 24 minutes
[2019-09-22] MEDS: BRIMONIDINE OPHTH DROPS 1 GTT BOTTLE 5ML OU SCH (08:44)
[2019-09-22] MEDS: EZETIMIBE 10 MG TABLET PO SCH (08:45)
[2019-09-22] MEDS: LISINOPRIL 20 MG TABLET PO SCH (08:45)
[2019-09-22] MEDS: amLODIPine 10 MG TABLET PO SCH (08:45)
[2019-09-22] MEDS: TIOTROPIUM BROMIDE 18 MCG INHALANT INH SCH (08:45)
[2019-09-22] MEDS: DOCUSATE SODIUM 100 MG CAPSULE PO SCH ×2 (08:46→20:33)
[2019-09-22] MEDS: POLYETHYLENE GLYCOL 3350 17 GM PACKET PO SCH ×2 (08:46→21:07)
[2019-09-22] MEDS: PANTOPRAZOLE 40 MG VIAL IV SCH (08:51)
[2019-09-22] MEDS ORDERED: METOPROLOL TARTRATE 25 MG TABLET PO SCH (09:00)
[2019-09-22 09:06] LABS: Prothrombin Time 12.9 sec (11.9-14.5)
[2019-09-22] MEDS ORDERED: KETAMINE 10 MG/ML ML ONE (09:45)
[2019-09-22] MEDS ORDERED: SUCCINYLCHOLINE 20 MG/ML ML IV ONE (09:45)
[2019-09-22] MEDS ORDERED: PHENYLEPHRINE 10 MG/ML VIAL ONE (09:45)
[2019-09-22] MEDS ORDERED: DEXAMETHASONE 10 MG/ML VIAL ONE (09:45)
[2019-09-22] MEDS ORDERED: ROCURONIUM 10 MG/ML ML IV ONE (09:45)
[2019-09-22] MEDS ORDERED: PROPOFOL 200 MG/20 ML VIAL IV ONE (09:45)
[2019-09-22] MEDS ORDERED: LIDOCAINE HCL/PF 100 MG/5 ML SYRINGE IV ONE (09:45)
[2019-09-22] MEDS ORDERED: ONDANSETRON 4 MG/2 ML VIAL ONE (09:45)
[2019-09-22] MEDS ORDERED: ePHEDrine 50 MG/ML AMPUL IV ONE (09:45)
[2019-09-22] MEDS ORDERED: NALOXONE HCL 0.4 MG/ML VIAL IV PRN (10:25)
[2019-09-22] MEDS ORDERED: ACETAMINOPHEN 1,000 MG/100 ML BOTTLE IV ONE (10:25)
[2019-09-22] MEDS ORDERED: diphenhydrAMINE 50 MG/ML VIAL IV PRN (10:25)
[2019-09-22] MEDS ORDERED: ePHEDrine 50 MG/ML AMPUL IV PRN (10:25)
[2019-09-22] MEDS ORDERED: fentaNYL 100 MCG/2 ML VIAL IV PRN (10:25)
[2019-09-22] MEDS ORDERED: ATROPINE SULFATE 0.4 MG/ML VIAL IV PRN (10:25)
[2019-09-22] MEDS ORDERED: LACTATED RINGERS 1,000 ML IV SCH (10:30)
[2019-09-22] MEDS ORDERED: BUPIVACAINE W/EPI 0.5% 50 ML VIAL IJ ONE (10:39)
[2019-09-22] MEDS ORDERED: ACETAMINOPHEN 750 MG/75 ML BOTTLE IV ONE (11:00)
--- NOTE | 2019-09-22 11:40 | Brief Operative Note ---
Date of procedure: 09/22/19 Findings: Date of procedure: 09/22/19 Pre-op diagnosis: appendicitis Post-op diagnosis: same Procedure: Laparoscopic appendectomy Grafts/Implants: No Anesthesia: GETA, local Complications: none Surgeon: Gino Judd Electroless Plater: PCP No Specimens Removed/Pathology: other (appendix) Condition: stable Disposition: PACU Surgeon: Gino Judd
[2019-09-22] MEDS ORDERED: HYDROmorphone 2 MG TABLET PO PRN (11:41)
[2019-09-22] MEDS: METOPROLOL SUCCINATE 50 MG TAB.XL.24H PO SCH (13:37)
--- NOTE | 2019-09-22 16:48 | Internal Med Progress Note ---
Medical - PN: Subj Patient information: Note initiated : 09/22/19 at 4:46 pm Service Date, if different from initiated Date: [] Patient: Heber Stewart a 84 y/o M admitted on 09/21/19 for abdominal pain. Chief Complaint: f/u appy Interval history: 09/21 Mr. Stewart is a 84 year old M with a history of COPD, intermittently oxygen requiring, asbestosis, left upper lobectomy, hypertension, peripheral arterial disease who presents to the emergency department abdominal pain. Patient states he was up early this morning, which is his usual and ate breakfast about 4. At 9 AM, he is preparing a sandwich for his next meal when he developed severe stabbing acute onset of right lower quadrant pain which doubled him over. He tried eating his sandwich, and finished about half of it but had to stop because of pain. Did not seem to worsen the pain, but it did not ameliorated either. Patient presents to the emergency department because of the pain, CT scan reveals simple appendicitis. Patient denies any fevers or chills. He had nausea with no emesis earlier this morning. He has had constipation which is been ongoing for the last several months. He did have a normal bowel movement yesterday. Patient was evaluated by Dr. Judd for surgery. Patient is currently on clopidogrel for peripheral arterial disease as multiple medical comorbidities. After discussion, decision was made to treat with antibiotics allowing for an elective appendectomy in the future. 09/22/2019 White count went from 15.5-16.5, patient still complaining of significant right lower quadrant pain this morning. He went to the OR for laparoscopic appendectomy which he tolerated well. This afternoon no specific complaints, quite pleased that his lower abdominal pain has resolved. - Constitutional Vitals: Vital Signs Temp Pulse Resp BP Pulse Ox 99.4 F H 99 H 19 119/60 95 09/22/19 11:38 09/22/19 15:37 09/22/19 15:37 09/22/19 11:38 09/22/19 15:37 Period Temp Pulse Resp BP Sys/Batista Pulse Ox Last 24 Hr 97.8 F-99.4 F 83-107 11-22 100-134/57-72 91-98 Intake and Output 09/22/19 09/22/19 09/22/19 05:59 13:59 21:59 Intake Total 1050 1374 Output Total 375 320 Balance 675 1054 Intake & Output: Intake & Output 09/22/19 09/22/19 09/22/19 05:59 13:59 21:59 Intake Total 1050 1374 Output Total 375 320 Balance 675 1054 Intake: IV 1050 424 Sodium Chloride 0.9% 1,000 ml @ 1000 249 75 mls/hr IV .[id number] [facility] Rx#: [id number] Zosyn 3.375 gm In Dextrose 5% 50 100 in Water 50 ml @ 100 mls/hr IV Q6H [facility] Rx#:[id number] Oral 0 IV - Manual Only 950 Output: Urine Catheter Amount 300 Void Amount 375 Estimated Blood Loss 20 Other: Urine Appearance Clear Hematuria Uretheral (Franks) Clear Urine Color Bright Yellow [place] Uretheral (Franks) Dark Ena Urine Odor Strong Normal Exam: General: In bed, in good spirits Chest: Clear, mildly diminished breath sounds Cardiovascular: Regular, no edema Abdomen: Soft, surgical dressings in place Neuro: Alert, oriented x3, mild generalized weakness Medical - PN: Obj Da - Labs CBC & Chem 7: 09/22/19 04:24 09/22/19 04:24 Labs: Abnormal Lab Results 09/22/19 09/21/19 09/21/19 04:24 14:39 12:57 WBC 16.5 H RBC 3.65 L Hgb 11.6 L Hct 35.3 L Gran % 82.1 H Lymph % (Auto) 11.8 L Gran # 13.57 H [place] # (Auto) Glucose 108 H POC Glucose Ur Specific [place] 1.036 H 09/21/19 09/21/19 11:20 11:20 WBC 15.6 H RBC 4.36 L Hgb Hct Gran % Lymph % (Auto) 12.8 L Gran # 12.0 H [place] # (Auto) 1.5 H Glucose 106 H POC Glucose 106 H Ur Specific [place] Meds: Medications Acetaminophen (Tylenol) 1,000 mg PO Q8HP ARACELI; Protocol Albuterol Sulfate (Ventolin) 2.5 mg NEB Q4HP PRN PRN Reason: Shortness Of Breath Amlodipine Besylate (Norvasc) 10 mg PO QAM [facility] Last Admin: 09/22/19 08:45 Dose: Not Given Documented by: Artificial Tears (Refresh Celluvisc) 1 each OU QIDP PRN PRN Reason: Dry Eye(s) Brimonidine Tartrate (Alphagan P Ophth Drops) 1 gtt OU DAILY [facility] Last Admin: 09/22/19 08:44 Dose: Not Given Documented by: Docusate Sodium (Colace) 100 mg PO BID [facility] Last Admin: 09/22/19 08:46 Dose: Not Given Documented by: Ezetimibe (Zetia) 10 mg PO DAILY [facility] Last Admin: 09/22/19 08:45 Dose: Not Given Documented by: Hydromorphone HCl (Dilaudid) 0 mg IV Q2HP PRN; Protocol PRN Reason: Per Pain Protocol Last Admin: 09/22/19 08:50 Dose: 2 mg Documented by: Hydromorphone HCl (Dilaudid) 2 - 4 mg PO Q3HP PRN; Protocol PRN Reason: Per Pain Protocol Sodium Chloride (Sodium Chloride 0.9%) 1,000 mls @ 75 mls/hr IV .[id number] [facility] Last Infusion: 09/22/19 11:43 Dose: 75 mls/hr Documented by: Piperacillin Sod/Tazobactam (Sod 3.375 gm/ Dextrose) 50 mls @ 100 mls/hr IV Q6H [facility]; Protocol Last Infusion: 09/22/19 12:30 Dose: Infused Documented by: Latanoprost (Xalatan Ophth Drops) 1 gtt OS HS [facility] Last Admin: 09/21/19 21:25 Dose: Not Given Documented by: Lisinopril (Zestril) 40 mg PO QAM [facility] Last Admin: 09/22/19 08:45 Dose: Not Given Documented by: Metoprolol Succinate (Toprol Xl) 50 mg PO DAILY [facility] Last Admin: 09/22/19 13:37 Dose: 50 mg Documented by: Naloxone HCl (Narcan) 0.1 mg IV Q2MIN PRN PRN Reason: Opiate Reversal Ondansetron HCl (Zofran) 4 mg IV Q6HP PRN PRN Reason: Nausea And Vomiting Pantoprazole Sodium (Protonix) 40 mg IV DAILY [facility] Last Admin: 09/22/19 08:51 Dose: 40 mg Documented by: Polyethylene Glycol (Miralax) 17 gm PO BID [facility] Last Admin: 09/22/19 08:46 Dose: Not Given Documented by: Senna (Senokot) 2 tab PO HS [facility] Last Admin: 09/21/19 21:25 Dose: 2 tab Documented by: Sodium Chloride (Saline Flush) 10 ml IV Q8 [facility] Last Admin: 09/22/19 13:36 Dose: 10 ml Documented by: Tiotropium [place] (Spiriva) 18 mcg INH DAILY [facility] Last Admin: 09/22/19 08:45 Dose: Not Given Documented by: Medical - PN: A/P - Time Spent With Patient Total time spent is greater than 50% in coordination of care (as documented) at patient's floor/unit and/or counseling patient: 25 - 35 minutes - Narrative A/P Narrative: 84-year-old male presenting with abrupt onset of right lower quadrant tend erness, has leukocytosis and simple appendicitis on CT. Acute appendicitis. Patient had increased white count to 16.5 this morning, persistent pain, went to the OR for laparoscopic appendectomy. IV Zosyn Postop care per surgery Continuing to hold antiplatelet agents Peripheral arterial disease. Patient with stenting to the iliac and SFA arteries in the past. He is on clopidogrel. His medication list, which indicated the films in 2017 showed clopidogrel 75 mg. Patient states that he n ow takes one half of the tablet that is a blood thinner because he had been experiencing epistaxis. He may be taking 37.5 mg of clopidogrel daily. Currently is not having any claudication symptoms. Continue ezetimibe Holding clopidogrel COPD with oxygen dependence. Wears up to 3 L/min at times at home secondary to dyspnea. 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 No evidence of acute exacerbation. On Spiriva and as needed albuterol at home. Continue Spiriva PRN albuterol nebs Target SaO2 92-96% for supplemental oxygen Glaucoma. Continue home regimen Hypertension. On lisinopril, metoprolol and amlodipine. Blood pressures currently controlled in the hospital. Continue home regimen Will continue to follow Medical - PN: Qual - VTE Deep Vein Thrombosis/Pulmonary Embolism Present on Admission: No
[2019-09-22] MEDS: SENNOSIDES 1 TABLET PO SCH (20:32)
[2019-09-22] MEDS: LATANOPROST OPHTH DROPS 2.5ML BOTTLE OS SCH (21:07)
[2019-09-22] MEDS ORDERED: ACETAMINOPHEN 500 MG TABLET PO SCH (22:00)
[2019-09-23] MEDS: HYDROmorphone 2 MG/ML VIAL IV PRN ×2 (03:09→15:23)
[2019-09-23] MEDS: PIPERACILLIN SODIUM/TAZOBACTAM 3.375 GM in DEXTROSE 5% IN WATER 50 ML IV SCH (05:03)
[2019-09-23] MEDS: 0.9 % SODIUM CHLORIDE 1,000 ML IV SCH ×2 (05:11→15:27)
[2019-09-23] MEDS: 0.9 % SODIUM CHLORIDE 10 ML SYRINGE IV SCH ×3 (05:11→22:42)
[2019-09-23 06:37] LABS: Basophils # (Auto) 0.01 K/mcL (0.00-0.30); Basophils % (Auto) 0.1 % (0.0-2.0); Eosinophils # (Auto) 0 K/mcL (0.00-0.70); Eosinophils % (Auto) 0 % (0.0-7.0); Granulocytes % (Auto) 89.1 % (38.0-78.0); Hematocrit 35.3 % (40.1-51.0); Hemoglobin 11.5 g/dL (13.7-17.5); Lymphocytes # (Auto) 0.95 K/mcL (1.50-4.80); Lymphocytes % (Auto) 6.3 % (15.5-49.0); Mean Cell Volume 95.9 fL (80.0-100.0); Mean Corpuscular HGB Conc 32.6 g/dL (31.0-36.0); Mean Platelet Volume 9.2 fL (7.4-10.4); Monocytes # (Auto) 0.68 K/mcL (0.10-0.90); Monocytes % (Auto) 4.5 % (1.0-12.0); Platelet Count 281 K/mcL (140-440); RBC 3.68 M/mcL (4.63-6.08); Red Cell Distribution Width 12.5 % (11.5-14.5); WBC 15.2 K/mcL (4.50-11.00)
[2019-09-23 06:53] LABS: Blood Urea Nitrogen 17 mg/dl (8-23); Calcium 9.1 mg/dl (8.6-10.4); Carbon Dioxide 23 mmol/L (22-30); Chloride 96 mmol/L (96-108); Glomerular Filtration Rate 83; Glucose 109 mg/dL (70-105)
[2019-09-23] MEDS: EZETIMIBE 10 MG TABLET PO SCH (09:16)
[2019-09-23] MEDS: amLODIPine 10 MG TABLET PO SCH (09:16)
[2019-09-23] MEDS: METOPROLOL SUCCINATE 50 MG TAB.XL.24H PO SCH (09:16)
[2019-09-23] MEDS: PANTOPRAZOLE 40 MG VIAL IV SCH (09:16)
[2019-09-23] MEDS: LISINOPRIL 20 MG TABLET PO SCH (09:16)
[2019-09-23] MEDS: DOCUSATE SODIUM 100 MG CAPSULE PO SCH ×2 (09:16→20:37)
[2019-09-23] MEDS: BRIMONIDINE OPHTH DROPS 1 GTT BOTTLE 5ML OU SCH (09:19)
[2019-09-23] MEDS: POLYETHYLENE GLYCOL 3350 17 GM PACKET PO SCH ×2 (09:24→20:37)
[2019-09-23] MEDS: TIOTROPIUM BROMIDE 18 MCG INHALANT INH SCH (09:25)
[2019-09-23] MEDS ORDERED: MAGNESIUM HYDROXIDE 30 ML ORAL.SUSP PO ONE (10:41)
--- NOTE | 2019-09-23 11:46 | Internal Med Progress Note ---
Medical - PN: Subj Patient information: Note initiated : 09/23/19 at 11:42 am Service Date, if different from initiated Date: [] Patient: Heber Stewart a 84 y/o M admitted on 09/21/19 for abdominal pain. Chief Complaint: Follow-up appendicitis Interval history: 09/21 Mr. Stewart is a 84 year old M with a history of COPD, intermittently oxygen requiring, asbestosis, left upper lobectomy, hypertension, peripheral arterial disease who presents to the emergency department abdominal pain. Patient states he was up early this morning, which is his usual and ate breakfast about 4. At 9 AM, he is preparing a sandwich for his next meal when he developed severe stabbing acute onset of right lower quadrant pain which doubled him over. He tried eating his sandwich, and finished about half of it but had to stop because of pain. Did not seem to worsen the pain, but it did not ameliorated either. Patient presents to the emergency department because of the pain, CT scan reveals simple appendicitis. Patient denies any fevers or chills. He had nausea with no emesis earlier this morning. He has had constipation which is been ongoing for the last several months. He did have a normal bowel movement yesterday. Patient was evaluated by Dr. Judd for surgery. Patient is currently on clopidogrel for peripheral arterial disease as multiple medical comorbidities. After discussion, decision was made to treat with antibiotics allowing for an elective appendectomy in the future. 09/22/2019 White count went from 15.5-16.5, patient still complaining of significant right lower quadrant pain this morning. He went to the OR for laparoscopic appendectomy which he tolerated well. This afternoon no specific complaints, quite pleased that his lower abdominal pain has resolved. 09/23 Patient doing well this morning. Wishes he could have more than clear liquid diet. Hoping to go home today. No longer on oxygen, was maintaining good sats on room air (oftentimes only wears it as needed at home). White count about the same. - Constitutional Vitals: Vital Signs Temp Pulse Resp BP Pulse Ox 98.4 F 85 12 131/67 97 09/23/19 08:00 09/23/19 08:00 09/23/19 08:00 09/23/19 08:00 09/23/19 08:00 Period Temp Pulse Resp BP Sys/Batista Pulse Ox Last 24 Hr 97.6 F-98.8 F 71-111 12- 105-135/58-74 93-97 Intake and Output 09/22/19 09/23/19 09/23/19 21:59 05:59 13:59 Intake Total 1521 250 50 Output Total 240 500 Balance 1281 -250 50 Weight 115 lb 8 oz Intake & Output: Intake & Output 09/22/19 09/23/19 09/23/19 21:59 05:59 13:59 Intake Total 1521 250 50 Output Total 240 500 Balance 1281 -250 50 Weight 115 lb 8 oz Intake: IV 801 50 50 Sodium Chloride 0.9% 1,000 ml @ 751 75 mls/hr IV .[id number] ARACELI Rx#: [id number] Zosyn 3.375 gm In Dextrose 5% 50 50 50 in Water 50 ml @ 100 mls/hr IV Q6H ARACELI Rx#:[id number] Oral 720 200 Output: Urine Catheter Amount 240 Void Amount 500 Other: Meal Dinner Percent of Meal Consumed 100% Feeding Ability Independent Urine Appearance Clear Clear Uretheral (Franks) Clear Urine Color Bright Yellow Bright Yellow Uretheral (Franks) Dark Ena Urine Odor Normal Exam: General: In bed, no acute distress Chest: Good aeration bilaterally without wheezes or rhonchi Cardiovascular: Regular with murmur Abdomen: Soft, appropriate postoperative tenderness, bowel sounds diminished but present Neuro: Alert, oriented, some generalized weakness but nonfocal Medical - PN: Obj Da - Labs CBC & Chem 7: 09/23/19 05:14 09/23/19 05:14 Labs: Abnormal Lab Results 09/23/19 09/23/19 09/22/19 05:14 05:14 04:24 WBC 15.2 H 16.5 H RBC 3.68 L 3.65 L Hgb 11.5 L 11.6 L Hct 35.3 L 35.3 L Gran % 89.1 H 82.1 H Lymph % (Auto) 6.3 L 11.8 L Gran # 13.52 H 13.57 H Lymph # (Auto) 0.95 L [place] # (Auto) Sodium 131 L Glucose 109 H POC Glucose Ur Specific [place] 09/21/19 09/21/19 09/21/19 14:39 12:57 11:20 WBC RBC Hgb Hct Gran % Lymph % (Auto) Gran # Lymph # (Auto) [place] # (Auto) Sodium Glucose 108 H 106 H POC Glucose 106 H Ur Specific [place] 1.036 H 09/21/19 11:20 WBC 15.6 H RBC 4.36 L Hgb Hct Gran % Lymph % (Auto) 12.8 L Gran # 12.0 H Lymph # (Auto) [place] # (Auto) 1.5 H Sodium Glucose POC Glucose Ur Specific [place] Meds: Medications Acetaminophen (Tylenol) 1,000 mg PO Q8HP [facility]; Protocol Albuterol Sulfate (Ventolin) 2.5 mg NEB Q4HP PRN PRN Reason: Shortness Of Breath Amlodipine Besylate (Norvasc) 10 mg PO QAM [facility] Last Admin: 09/23/19 09:16 Dose: 10 mg Documented by: Artificial Tears (Refresh Celluvisc) 1 each OU QIDP PRN PRN Reason: Dry Eye(s) Brimonidine Tartrate (Alphagan P Ophth Drops) 1 gtt OU DAILY [facility] Last Admin: 09/23/19 09:19 Dose: Not Given Documented by: Docusate Sodium (Colace) 100 mg PO BID [facility] Last Admin: 09/23/19 09:16 Dose: 100 mg Documented by: Ezetimibe (Zetia) 10 mg PO DAILY [facility] Last Admin: 09/23/19 09:16 Dose: 10 mg Documented by: Hydromorphone HCl (Dilaudid) 0 mg IV Q2HP PRN; Protocol PRN Reason: Per Pain Protocol Last Admin: 09/23/19 03:09 Dose: 1 mg Documented by: Hydromorphone HCl (Dilaudid) 2 - 4 mg PO Q3HP PRN; Protocol PRN Reason: Per Pain Protocol Sodium Chloride (Sodium Chloride 0.9%) 1,000 mls @ 75 mls/hr IV .[id number] [facility] Last Admin: 09/23/19 05:11 Dose: Not Given Documented by: Latanoprost (Xalatan Ophth Drops) 1 gtt OS HS [facility] Last Admin: 09/22/19 21:07 Dose: Not Given Documented by: Lisinopril (Zestril) 40 mg PO QAM [facility] Last Admin: 09/23/19 09:16 Dose: 40 mg Documented by: Metoprolol Succinate (Toprol Xl) 50 mg PO DAILY [facility] Last Admin: 09/23/19 09:16 Dose: 50 mg Documented by: Naloxone HCl (Narcan) 0.1 mg IV Q2MIN PRN PRN Reason: Opiate Reversal Ondansetron HCl (Zofran) 4 mg IV Q6HP PRN PRN Reason: Nausea And Vomiting Pantoprazole Sodium (Protonix) 40 mg IV DAILY [facility] Last Admin: 09/23/19 09:16 Dose: 40 mg Documented by: Polyethylene Glycol (Miralax) 17 gm PO BID [facility] Last Admin: 09/23/19 09:24 Dose: 17 gm Documented by: Senna (Senokot) 2 tab PO HS [facility] Last Admin: 09/22/19 20:32 Dose: 2 tab Documented by: Sodium Chloride (Saline Flush) 10 ml IV Q8 [facility] Last Admin: 09/23/19 05:11 Dose: Not Given Documented by: Tiotropium [place] (Spiriva) 18 mcg INH DAILY [facility] Last Admin: 09/23/19 09:25 Dose: Not Given Documented by: Medical - PN: A/P - Time Spent With Patient Total time spent is greater than 50% in coordination of care (as documented) at patient's floor/unit and/or counseling patient: 25 - 35 minutes - Narrative A/P Narrative: 84-year-old male presenting with abrupt onset of right lower quadrant tenderness, has leukocytosis and simple appendicitis on CT. Acute appendicitis. Postop day #1, status post laparoscopic appendectomy. IV Zosyn stopped, per conversation with ID Postop care per surgery Continuing to hold antiplatelet agents, resume postop whenever safe from a surgical standpoint Okay for discharge from a medicine standpoint Peripheral arterial disease. Patient with stenting to the iliac and SFA arteries in the past. He is on clopidogrel. His medication list, which indicated the films in 2017 showed clopidogrel 75 mg. Patient states that he now takes one half of the tablet that is a blood thinner because he had been experiencing epistaxis. He may be taking 37.5 mg of clopidogrel daily. Currently is not having any claudication symptoms. Continue ezetimibe Holding clopidogrel, resume when safe from a surgical standpoint COPD with oxygen dependence. Wears up to 3 L/min at times at home secondary to dyspnea. 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 No evidence of acute exacerbation. On Spiriva and as needed albuterol at home. Continue Spiriva PRN albuterol nebs Target SaO2 92-96% for supplemental oxygen Discharge on home medicine regimen Glaucoma. Continue home regimen Hypertension. On lisinopril, metoprolol and amlodipine. Blood pressures currently controlled in the hospital. Continue home regimen No further recommendations, okay for discharge. Medical - PN: Qual - VTE Deep Vein Thrombosis/Pulmonary Embolism Present on Admission: No
[2019-09-23] MEDS ORDERED: MAGNESIUM HYDROXIDE 30 ML ORAL.SUSP PO PRN (13:26)
--- NOTE | 2019-09-23 14:55 | Operative Note ---
DATE OF OPERATION: 09/22/2019 PREOPERATIVE DIAGNOSIS: Appendicitis. POSTOPERATIVE DIAGNOSIS: Perforated appendicitis. PROCEDURE PERFORMED: Laparoscopic appendectomy. SURGEON: Gino Judd MD ANESTHESIA: General and local. DESCRIPTION OF PROCEDURE: After induction of general anesthetic, a Franks catheter was placed. Subsequent to that, the abdomen was cleaned with ChloraPrep solution prior to being sterilely draped. An infraumbilical incision was made. A Veress needle was placed and the abdomen was insufflated with carbon dioxide gas. A 5 mm Visiport was used to gain access to the abdominal cavity. A 5 mm trocar was then placed under direct vision in the left lower quadrant and a 10/12 in the suprapubic position. All three of these trocar sites were infiltrated with 0.25% Marcaine with epinephrine. The appendix was identified and noted to be inflamed. LigaSure type instrument was utilized to divide the ligament of Treves. A window was then made in the mesoappendix at the base of the appendix using blunt dissection. An endoscopic NANCY stapling device was then used to come across the appendix at this point. The mesoappendix was subsequently divided using the LigaSure type instrument. The appendix was noted to be in two segments. At the center was a small fecalith and a pool of purulent fluid. The appendix and the fecalith were placed in the EndoCatch sac. The fluid was aspirated. The EndoCatch sac was removed through the 10/12 trocar and the appendix was sent for pathological examination. The operative field was irrigated and carefully inspected. Meticulous hemostasis was obtained. The trocars were then removed under direct vision. The abdomen was desufflated. The suprapubic fascial defect was closed using 0 Vicryl suture. The skin wounds were closed with stainless steel joce. Tegaderm dressing was then applied. The patient at this point was awakened, extubated, and transferred to the recovery room in stable and good condition. ESTIMATED BLOOD LOSS: Negligible COMPLICATIONS: None. SPECIMEN: Appendix. DRAINS: None. DEN:leonid Job ID: [id number] Doc ID: [id number] Gino Judd MD [facility] CENTERHuang
[2019-09-23] MEDS: CIPROFLOXACIN 400 MG/200 ML BAG IV SCH (15:19)
--- NOTE | 2019-09-23 15:46 | General Surgery Progress Note ---
Subjective Patient reports: no new complaints, feels better, pain is less, tolerating liquids well Narrative: Note initiated : 09/23/19 at 3:44 pm Service Date, if different from initiated Date: [] Patient: Heber Stewart 84 y/o M admitted on 09/21/19 for abdominal pain. States that his abdominal pain is markedly better. Pertinent ROS: He will get up and about. Denies bowel movements. Reports tolerating clear liquids. Ear to go home. Objective Temp Pulse Resp BP Pulse Ox 98.5 F 81 12 127/70 97 09/23/19 12:00 09/23/19 12:00 09/23/19 12:00 09/23/19 12:00 09/23/19 12:00 - Additional Data Intake & Output - Last 24 hours: Intake & Output 09/21/19 09/22/19 09/23/19 09/24/19 05:59 05:59 05:59 05:59 Intake Total 1150 3145 1050 Output Total 550 1060 800 Balance 600 2085 250 Weight 110 lb 115 lb 8 oz 115 lb 8 oz - General physical appearance no distress - Respiratory normal respiratory effort - Cardiovascular Cardiovascular exam: Present: normal rate and rhythm - Abdomen soft, non tender - Labs 09/23/19 05:14 09/23/19 05:14 Diabetes panel 09/23/19 Range/Units 05:14 Sodium 131 L (133-145) mmol/L Potassium 4.2 (3.3-5.1) mmol/L Chloride 96 (96-108) mmol/L Carbon Dioxide 23 (22-30) mmol/L BUN 17 (8-23) mg/dl Creatinine 0.8 (0.7-1.2) mg/dl Glucose 109 H (70-105) mg/dL Calcium 9.1 (8.6-10.4) mg/dl Calcium panel 09/23/19 Range/Units 05:14 Calcium 9.1 (8.6-10.4) mg/dl Pituitary panel 09/23/19 Range/Units 05:14 Sodium 131 L (133-145) mmol/L Potassium 4.2 (3.3-5.1) mmol/L Chloride 96 (96-108) mmol/L Carbon Dioxide 23 (22-30) mmol/L BUN 17 (8-23) mg/dl Creatinine 0.8 (0.7-1.2) mg/dl Glucose 109 H (70-105) mg/dL Calcium 9.1 (8.6-10.4) mg/dl Adrenal panel 09/23/19 Range/Units 05:14 Sodium 131 L (133-145) mmol/L Potassium 4.2 (3.3-5.1) mmol/L Chloride 96 (96-108) mmol/L Carbon Dioxide 23 (22-30) mmol/L BUN 17 (8-23) mg/dl Creatinine 0.8 (0.7-1.2) mg/dl Glucose 109 H (70-105) mg/dL Calcium 9.1 (8.6-10.4) mg/dl Assessment and Plan (1) Appendicitis Status: Acute Assessment and plan: He states that his abdominal pain continues to be minimal. We discussed the notion that his white blood count is still abnormal at around 15. I recommended that he continue on IV antibiotics until the white blood count normalizes. We will change him from Zosyn to IV Cipro and Flagyl anticipating changing to the similar medications orally at the time of his discharge. We will recheck a CBC in the morning. The Franks catheter is been removed. His diet will be advanced as tolerated to a general diet. Current Visit: Yes - Time Spent With Patient Total time spent is greater than 50% in coordination of care (as documented) at patient's floor/unit and/or counseling patient:
[2019-09-23] MEDS: metroNIDAZOLE 500 MG/100 ML BAG IV SCH ×2 (16:55→22:41)
[2019-09-23] MEDS: SENNOSIDES 1 TABLET PO SCH (20:37)
[2019-09-23] MEDS: LATANOPROST OPHTH DROPS 2.5ML BOTTLE OS SCH (20:38)
[2019-09-24] MEDS: 0.9 % SODIUM CHLORIDE 1,000 ML IV SCH ×4 (00:11→13:00)
[2019-09-24] MEDS: CIPROFLOXACIN 400 MG/200 ML BAG IV SCH (00:11)
[2019-09-24] MEDS: 0.9 % SODIUM CHLORIDE 10 ML SYRINGE IV SCH ×3 (05:55→22:40)
[2019-09-24] MEDS: metroNIDAZOLE 500 MG/100 ML BAG IV SCH ×3 (05:55→22:05)
[2019-09-24 07:37] LABS: Basophils # (Auto) 0.02 K/mcL (0.00-0.30); Basophils % (Auto) 0.1 % (0.0-2.0); Eosinophils # (Auto) 0.02 K/mcL (0.00-0.70); Eosinophils % (Auto) 0.1 % (0.0-7.0); Granulocytes % (Auto) 83.3 % (38.0-78.0); Hematocrit 40.9 % (40.1-51.0); Hemoglobin 13.6 g/dL (13.7-17.5); Lymphocytes # (Auto) 1.71 K/mcL (1.50-4.80); Lymphocytes % (Auto) 9.9 % (15.5-49.0); Mean Cell Volume 93.6 fL (80.0-100.0); Mean Corpuscular HGB Conc 33.3 g/dL (31.0-36.0); Mean Platelet Volume 9.1 fL (7.4-10.4); Monocytes # (Auto) 1.15 K/mcL (0.10-0.90); Monocytes % (Auto) 6.6 % (1.0-12.0); Platelet Count 379 K/mcL (140-440); RBC 4.37 M/mcL (4.63-6.08); Red Cell Distribution Width 12.3 % (11.5-14.5); WBC 17.3 K/mcL (4.50-11.00)
[2019-09-24] MEDS: BRIMONIDINE OPHTH DROPS 1 GTT BOTTLE 5ML OU SCH (08:21)
[2019-09-24] MEDS: DOCUSATE SODIUM 100 MG CAPSULE PO SCH (08:21)
[2019-09-24] MEDS: EZETIMIBE 10 MG TABLET PO SCH (08:22)
[2019-09-24] MEDS: LISINOPRIL 20 MG TABLET PO SCH (08:22)
[2019-09-24] MEDS: PANTOPRAZOLE 40 MG VIAL IV SCH (08:22)
[2019-09-24] MEDS: TIOTROPIUM BROMIDE 18 MCG INHALANT INH SCH (08:22)
[2019-09-24] MEDS: METOPROLOL SUCCINATE 50 MG TAB.XL.24H PO SCH (08:22)
[2019-09-24] MEDS: POLYETHYLENE GLYCOL 3350 17 GM PACKET PO SCH (08:23)
[2019-09-24] MEDS: amLODIPine 10 MG TABLET PO SCH (08:23)
[2019-09-24] MEDS ORDERED: BISACODYL 10 MG SUPP.RECT PR ONE (08:53)
[2019-09-24] MEDS ORDERED: CEFEPIME 2 GM VIAL IV SCH (09:00)
--- NOTE | 2019-09-24 09:17 | XRay Report ---
CLINICAL INFORMATION: Abdominal distention - 2 days status post laparoscopic appendectomy COMPARISON: None. FINDINGS: There is a small amount of free air under the diaphragms as expected in the immediate postoperative surgical period.Multiple loops of small bowel in the left mid abdomen are moderately dilated with air-fluid levels on the upright film. The distal small bowel and colon are decompressed. Findings compatible mid jejunal obstruction. No soft tissue mass or organomegaly. IMPRESSION: High-grade mid jejunal obstruction. Interpreted and Authenticated by: Dalton Reyes 09/24/19
--- NOTE | 2019-09-24 09:30 | General Surgery Progress Note ---
Subjective Patient reports: no bowel movement Narrative: Note initiated : 09/24/19 at 9:28 am Service Date, if different from initiated Date: [] Patient: Heber Stewart 84 y/o M admitted on 09/21/19 for abdominal pain. Chief Complaint: "need to have a bowel movement" States abdominal discomfort characterized by cramping abdominal pain. He feels if he could have a bowel movement he would feel better. He is reporting some nausea as well. He is noted to be holding an emesis bag. Abdominal x-ray showed dilated small bowel consistent with an ileus. Patient's white blood cell count has remained elevated. Requested an ID consultation for recommendations regarding antibiotic therapy. Pertinent ROS: Patient denies passing flatus or bowel movement. He is requesting help with "getting this out of me." He denies fever, chills. He states that his preoperative abdominal pain is not recurrent. Objective Temp Pulse Resp BP Pulse Ox 98.1 F 97 H 18 149/80 94 09/24/19 07:28 09/24/19 07:28 09/24/19 07:28 09/24/19 07:28 09/24/19 07:28 - Additional Data Intake & Output - Last 24 hours: Intake & Output 09/22/19 09/23/19 09/24/19 09/25/19 05:59 05:59 05:59 05:59 Intake Total 1150 3145 1700 Output Total 550 1060 1050 Balance 600 2085 650 Weight 110 lb 115 lb 8 oz 118 lb 8 oz - Additional Exam He appears to be in minimal distress. His respiratory rate is slightly increased. His abdominal exam reveals distention with discomfort on compression but no rebound tenderness. Abdominal x-rays reviewed. - Labs 09/24/19 06:22 09/23/19 05:14 Assessment and Plan (1) Appendicitis Status: Acute Assessment and plan: Mister Stewart appears to have a postoperative ileus not entirely unusual with his known history of appendectomy with perforation. We will plan to place a nasogastric tube and have him receive Dulcolax suppository. Additionally we'll await infectious disease doctor's recommendations regarding antibiotic therapy given persistent leukocytosis based on his recommendations the ciprofloxacin has been stopped and the patient has been switched over to cefepime intravenously in addition to the already ongoing metronidazole IV. I met with the patient and his and discuss the above. Their questions were answered. Current Visit: Yes - Time Spent With Patient Total time spent is greater than 50% in coordination of care (as documented) at patient's floor/unit and/or counseling patient:
[2019-09-24] MEDS: HYDROmorphone 2 MG/ML VIAL IV PRN (10:08)
[2019-09-24] MEDS ORDERED: IOPAMIDOL 100 ML BOTTLE IV ONE (10:43)
--- NOTE | 2019-09-24 12:35 | Cat Scan Report ---
CLINICAL INFORMATION: Two day status post appendectomy abdominal pain and distention. COMPARISON: Preoperative abdomen and pelvic CT 09/21/2019 TECHNIQUE: Following enteric contrast, 80 cc of Isovue-370 were injected intravenously, and 60 seconds later, 0.625 mm helical slices were obtained from the mid heart through the subtrochanteric regions. Following reconstruction, 2.5 mm sagittal, coronal and axial reformatted images were processed and reviewed at bone, lung and soft tissue windows. Five minutes later, 0.625 mm helical slices were obtained from the mid heart through the kidneys and viewed at soft tissue windows.The exam was performed using radiation dose optimization techniques including, but not limited to, automated exposure control, adjustment of the mA and/or kV according to patient size and use of iterative reconstruction technique. FINDINGS: The lung bases show minimal diffuse interstitial disease which has improved and likely represents resolving edema. A small right right pleural effusion has increased. There is subsegmental atelectasis in the posterior right lower lobe. Extensive bilateral pleural calcification is compatible with asbestos exposure. There is also pericardial calcification. The heart is mildly enlarged. Abdominal images show the gallbladder and bile ducts, liver, right adrenal gland, spleen and pancreas to be unremarkable. An 18 mm simple cyst in the central right pelvis is again. A 3 cm left adrenal gland calcification is unchanged. The right adrenal gland normal. The abdominal aorta is normal in diameter with heavy atherosclerotic plaque. There is a thrombosed ulceration right lateral wall of the infrarenal abdominal aorta which was seen on previous study but not commented upon. There is extremely heavy calcific plaque in the left renal artery origin suspect a stenosis greater than 50% in this region. Celiac and SMA are unremarkable. There is very heavy calcific plaque throughout the common, external and internal iliac arteries with a 90% stenosis distal left external iliac artery. 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 These stomach, all small bowel loops ascending and transverse colon are moderately dilated with relatively abrupt transition at the splenic flexure. The descending and rectosigmoid colonic segments are decompressed. Findings are most compatible with atypical ileus - there is no evidence of mass or stricture in the splenic flexure. Small/moderate ascites throughout the abdomen and pelvis likely represent irrigant from recent surgery. There are also small amounts of free air in the nondependent epigastric region of expected from recent abdominal surgery. Pelvic images show prostate and seminal vesicles be normal. There is diffuse wall thickening of the urinary bladder with increased enhancement suggesting cystitis is a new finding. Bone windows show no acute osseous abnormality. IMPRESSION: 1. Probable atypical ileus. Colon obstruction at the splenic flexure level would be highly unlikely. If this stool gas pattern persists on follow-up plain films, a Hypaque enema could be performed to ensure the absence of splenic flexure obstruction 2. Small/moderate ascites throughout the abdomen and pelvis almost certainly irrigant from recent surgery. GI tract perforation, liver and renal failure are unlikely causes. Small amount of free intraperitoneal air - as expected in the immediate postoperative period 3. Mild diffuse wall thickening of the urinary ladder, new, is suggestive of cystitis. 4. 3 cm left adrenal calcification consistent with stigmata of old adrenal hemorrhage. 5. 1.9 cm simple cyst right renal pelvis - stable 6. 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 7. 90% stenosis of the distal left external iliac artery. Greater than 50% stenosis left renal artery. All stable 8. Bilateral pleural calcifications suggest asbestos exposure Interpreted and Authenticated by: Dalton Reyes 09/24/19
--- NOTE | 2019-09-24 13:23 | Surgical Pathology Report ---
HISTOLOGY SPECIMEN MICROSCOPIC DIAGNOSIS APPENDIX, APPENDECTOMY: -- ACUTE APPENDICITIS INVOLVING FULL THICKNESS OF WALL WITH SEROSITIS AND WALL DISRUPTION. (EBD:sln) PROCEDURAL IMPRESSION Acute appendicitis. GROSS DESCRIPTION Received in formalin labeled appendix, is a disrupted appendix that when reconstructed measures 5.9 cm in length and up to 0.9 cm in greatest diameter. The proximal portion is approximately 4.1 cm and the distal portion is approximately 1.8 cm. When reconstructed there is a possible 0.7 cm perforation present at the point where the two portions are disconnected. There is correa-avilez exudate present on the external surface. The area nearest the possible perforation is inked blue. The specimen is serially sectioned with the most proximal portion inked black. There is up to 0.4 cm of yellow-avilez adipose tissue. [facility] sections in one cassette. (KGW:sln) Electronically Signed by: Lawanda Walker M.D.
--- NOTE | 2019-09-24 13:50 | Infectious Disease Consult ---
History of Present Illness Patient information: Note initiated : 09/24/19 at 1:34 pm Service Date, if different from initiated Date: [] Patient: Heber Stewart 84 y/o M admitted on 09/21/19 for abdominal pain. Chief Complaint: [] Consult date: 09/24/19 Requesting Physician: Gino Judd MD Reason for Consult: persistent leukocytosis after appendectomy Chief complaint: I am hurting in my belly History of present illness: 84 year old man admitted 09/21 with acute abdominal pain [rated it 10/10] which woke him from sleep at 2am. Pt also had some nausea, but no vomiting, fever, trauma. CT showed uncomplicated appendicitis without any perforation, phlegmon, fluid collections. Pt was on IV Zosyn x 1 day but didnot get better with worsening leucocytosis for which he underwent lap appendectomy on 09/22/19 with findings of small perforation, no intraoperative Cx sent. Pt was on post-op Zosyn. His abd pain got slightly better but got worse in last 1-2 days along with inability to pass gas, no bowel movements and difficulty emptying bladder. Pt denied any fever, chills, n/v. He was on Zosyn till yesterday afternoon when it was stopped. He was started on IV Cipro and flagyl last evening. At time of visit, he was uncomfortable and brief in giving history. He confirmed above Hx. Added that he is in bad pain, rates it 9/10. Expressed inability to get his urine out. Of note, he had his CT abd/pelvis done earlier this am. Review of Systems All systems PM: reviewed and no additional remarkable complaints except as stated Constitutional: as per HPI Past History Past family history: no sick contacts Past social history: lives with his of ~52 years. Former smoker, quit in 2006, drinks 4 beers a day Medications and Allergies Home Medications Medication Instructions Recorded Confirmed Type Albuterol Sulfate [Albuterol 8.5 gm IH Q4H 06/02/15 09/21/19 History Sulfate Hfa] Ezetimibe [Zetia] 10 mg PO DAILY 06/02/15 09/21/19 History Latanoprost Ophth Drops [Xalatan 1 gtt OS HS 06/02/15 09/21/19 History Ophth Drops] Tiotropium Gunpowder [Spiriva] 18 mcg INH DAILY 06/02/15 09/21/19 History amlodipine 10 mg tablet 10 mg PO QAM tab 05/06/19 09/21/19 History carboxymethylcellulose sodium 0.5 4 drp OPHTHALMIC QDAY ml 05/06/19 09/21/19 History % eye drops clopidogrel 300 mg tablet 75 mg PO .COMPLEX 05/06/19 09/21/19 History lisinopril 20 mg tablet 40 mg PO QAM tab 05/06/19 09/21/19 History metoprolol tartrate 25 mg tablet 50 mg PO QDAY tab 05/06/19 09/21/19 History famotidine 10 mg tablet 10 mg PO BID tab 08/25/19 09/21/19 History Brimonidine Tartrate 15 ml OP DAILY 09/21/19 09/21/19 History Cholecalciferol (Vitd3)/Vit K2 1 tab PO DAILY 09/21/19 09/21/19 History [Dosoquin Tablet] Allergies Allergy/AdvReac Type Severity Reaction Status Date / Time cilostazol Allergy Unknown Unknown Verified 08/25/19 08:48 hydrochlorothiazide Allergy Unknown Unknown Verified 08/25/19 08:48 meloxicam Allergy Unknown Unknown Verified 08/25/19 08:48 pravastatin Allergy Unknown Unknown Verified 08/25/19 08:48 simvastatin Allergy Unknown Unknown Verified 08/25/19 08:48 Sulfa (Sulfonamide Allergy Unknown Unknown Verified 08/25/19 08:48 Antibiotics) Cilostazol Allergy Unknown Unknown Uncoded 08/25/19 08:48 Physical Examination Vital signs: Temp Pulse Resp BP Pulse Ox 36.4 C 94 H 18 123/81 96 09/24/19 12:00 09/24/19 12:00 09/24/19 12:00 09/24/19 12:00 09/24/19 12:00 General appearance: no acute distress, appears uncomfortable Eyes pulmonary: nonicteric ENT: oropharynx dry Auscultation: bilateral: clear Cardiovascular: other Gastrointestinal: absent bowel sounds, tender, rebound tenderness, guarding, other (has joce over the laparascopy ports entry sites with some bleeding. ) Extremities: no cyanosis, no edema Results - Laboratory Findings CBC and BMP: 09/24/19 06:22 09/23/19 05:14 PT/INR, D-dimer PT 12.9 sec (11.9-14.5) 09/22/19 08:45 INR 1.0 (0.9-1.1) 09/22/19 08:45 Abnormal lab findings: Abnormal Labs 09/21/19 09/21/19 09/21/19 11:20 11:20 12:57 WBC 15.6 H RBC 4.36 L Hgb Hct Gran % Lymph % (Auto) 12.8 L Gran # 12.0 H Lymph # (Auto) [place] # (Auto) 1.5 H Sodium Glucose 106 H POC Glucose 106 H Ur Specific Price 1.036 H 09/21/19 09/22/19 09/23/19 14:39 04:24 05:14 WBC 16.5 H 15.2 H RBC 3.65 L 3.68 L Hgb 11.6 L 11.5 L Hct 35.3 L 35.3 L Gran % 82.1 H 89.1 H Lymph % (Auto) 11.8 L 6.3 L Gran # 13.57 H 13.52 H Lymph # (Auto) 0.95 L [place] # (Auto) Sodium Glucose 108 H POC Glucose Ur Specific Price 09/23/19 09/24/19 05:14 06:22 WBC 17.3 H RBC 4.37 L Hgb 13.6 L Hct Gran % 83.3 H Lymph % (Auto) 9.9 L Gran # 14.43 H Lymph # (Auto) [place] # (Auto) 1.15 H Sodium 131 L Glucose 109 H POC Glucose Ur Specific Price Assessment and Plan - Narrative A/P Narrative: A: 1. Acute appendicitis with small perforation: POD 3 after laparoscopic appe ndectomy - CT done today r/o any intra-abd fluid collection, perforation, 2. Postoperative ileus: absent bowel sounds, confirmed on CT abd/pelvis 3. Leucocytosis: WBC 17.3k today [83.3% PMNs] <--------15.2k yesterday - multifactorial: postoperative, localized peritonitis Recommendations: - Start IV Cefepime 2 gm q12 hrs and IV Metronidazole 500 mg q8 hrs. Stop Cipro. - send blood Cx if spikes a fever (> 100.2F) - will assess on Friday. If NG tube out and taking PO, return of bowel sounds, resolution of ileus; pt could be switched to PO Levofloxacin 500 mg q24hrs and PO Metronidazole 500 mg q8 hrs for 5-day course with follow up - follow up abd xray imaging per primary team to r/o any obstruction will follow Zaire Vaca MD Infectious diseases
[2019-09-24] MEDS ORDERED: metroNIDAZOLE 500 MG TABLET PO SCH (14:00)
[2019-09-24] MEDS ORDERED: BENZOCAINE 1 SPRAY BOTTLE TOPICAL PRN (18:48)
[2019-09-24] MEDS: LATANOPROST OPHTH DROPS 2.5ML BOTTLE OS SCH (21:22)
[2019-09-24] MEDS: CEFEPIME 2 GM VIAL IV SCH (21:22)
[2019-09-24] MEDS: HEPARIN 5,000 UNIT/ML VIAL SQ SCH (21:22)
[2019-09-25] MEDS: 0.9 % SODIUM CHLORIDE 1,000 ML IV SCH ×4 (01:00→20:22)
[2019-09-25] MEDS: metroNIDAZOLE 500 MG/100 ML BAG IV SCH ×3 (06:09→22:13)
[2019-09-25] MEDS: 0.9 % SODIUM CHLORIDE 10 ML SYRINGE IV SCH ×4 (06:15→20:22)
[2019-09-25 07:31] LABS: Basophils # (Auto) 0.03 K/mcL (0.00-0.30); Basophils % (Auto) 0.2 % (0.0-2.0); Eosinophils % (Auto) 0.7 % (0.0-7.0); Granulocytes % (Auto) 80.6 % (38.0-78.0); Hematocrit 40.3 % (40.1-51.0); Hemoglobin 13.2 g/dL (13.7-17.5); Lymphocytes # (Auto) 1.22 K/mcL (1.50-4.80); Lymphocytes % (Auto) 8.5 % (15.5-49.0); Mean Cell Volume 94.2 fL (80.0-100.0); Mean Corpuscular HGB Conc 32.8 g/dL (31.0-36.0); Mean Platelet Volume 8.9 fL (7.4-10.4); Monocytes # (Auto) 1.44 K/mcL (0.10-0.90); Platelet Count 328 K/mcL (140-440); RBC 4.28 M/mcL (4.63-6.08); Red Cell Distribution Width 12.4 % (11.5-14.5); WBC 14.4 K/mcL (4.50-11.00)
[2019-09-25 07:36] LABS: ALT/SGPT 12 U/l (0-40); AST/SGOT 23 U/l (0-37); Albumin 3.6 gm/dL (3.2-5.2); Albumin/Globulin Ratio 1.2 (1.0-2.3); Alkaline Phosphatase 65 U/L (39-117); Bilirubin,Total 0.8 mg/dL (0.0-1.0); Calcium 9.2 mg/dl (8.6-10.4); Carbon Dioxide 19 mmol/L (22-30); Glomerular Filtration Rate 56; Glucose 70 mg/dL (70-105)
[2019-09-25 07:47] LABS: Blood Urea Nitrogen 28 mg/dl (8-23); Chloride 95 mmol/L (96-108)
[2019-09-25] MEDS: BRIMONIDINE OPHTH DROPS 1 GTT BOTTLE 5ML OU SCH (08:56)
[2019-09-25] MEDS: METOPROLOL SUCCINATE 50 MG TAB.XL.24H PO SCH (09:03)
[2019-09-25] MEDS: LISINOPRIL 20 MG TABLET PO SCH (09:03)
[2019-09-25] MEDS: HEPARIN 5,000 UNIT/ML VIAL SQ SCH ×2 (09:03→20:21)
[2019-09-25] MEDS: amLODIPine 10 MG TABLET PO SCH (09:03)
[2019-09-25] MEDS: EZETIMIBE 10 MG TABLET PO SCH (09:03)
[2019-09-25] MEDS: PANTOPRAZOLE 40 MG VIAL IV SCH (09:04)
[2019-09-25] MEDS: CEFEPIME 2 GM VIAL IV SCH ×2 (09:04→20:21)
[2019-09-25] MEDS ORDERED: 0.9 % SODIUM CHLORIDE 1,000 ML IV SCH (10:30)
[2019-09-25] MEDS: TIOTROPIUM BROMIDE 18 MCG INHALANT INH SCH (10:31)
--- NOTE | 2019-09-25 11:23 | General Surgery Progress Note ---
Subjective Patient reports: no new complaints, pain is less, flatus, bowel movement Narrative: Note initiated : 09/25/19 at 11:21 am Service Date, if different from initiated Date: [] Patient: Heber Stewart 84 y/o M admitted on 09/21/19 for abdominal pain. States that he is eager to have the NG tube removed. He reports a very large uncontrolled bowel movement. He denies ongoing abdominal distention or pain. He is eager to have the NG tube removed. He understands that removing the NG tube may lead to having to be replaced. He states that he understands this and would like to give it a chance out possible. Pertinent ROS: No fever or chills. No shortness of breath. The Franks catheter is not bothering him. Objective Temp Pulse Resp BP Pulse Ox 97.6 F 103 H 20 119/71 94 09/25/19 08:08 09/25/19 08:08 09/25/19 08:08 09/25/19 08:08 09/25/19 04:00 - Additional Data Intake & Output - Last 24 hours: Intake & Output 09/23/19 09/24/19 09/25/19 09/26/19 05:59 05:59 05:59 05:59 Intake Total 3145 1700 1300 1282 Output Total 1060 1050 2710 200 Balance 2085 650 -1410 1082 Weight 115 lb 8 oz 118 lb 8 oz 112 lb 8 oz - Additional Exam He appears to be resting comfortably. His breathing is unlabored. Abdominal exam shows soft abdomen that's only minimally sore in the right lower quadrant to moderate palpation. The wounds are benign in appearance. - Labs 09/25/19 06:07 09/25/19 06:07 Diabetes panel 09/25/19 Range/Units 06:07 Sodium 134 (133-145) mmol/L Potassium 4.0 (3.3-5.1) mmol/L Chloride 95 L (96-108) mmol/L Carbon Dioxide 19 L (22-30) mmol/L BUN 28 H (8-23) mg/dl Creatinine 1.2 (0.7-1.2) mg/dl Glucose 70 (70-105) mg/dL Calcium 9.2 (8.6-10.4) mg/dl AST 23 (0-37) U/l ALT 12 (0-40) U/l Alkaline Phosphatase 65 (39-117) U/L Total Protein 6.6 (5.9-8.4) gm/dL Albumin 3.6 (3.2-5.2) gm/dL Calcium panel 09/25/19 Range/Units 06:07 Calcium 9.2 (8.6-10.4) mg/dl Albumin 3.6 (3.2-5.2) gm/dL Pituitary panel 09/25/19 Range/Units 06:07 Sodium 134 (133-145) mmol/L Potassium 4.0 (3.3-5.1) mmol/L Chloride 95 L (96-108) mmol/L Carbon Dioxide 19 L (22-30) mmol/L BUN 28 H (8-23) mg/dl Creatinine 1.2 (0.7-1.2) mg/dl Glucose 70 (70-105) mg/dL Calcium 9.2 (8.6-10.4) mg/dl Adrenal panel 09/25/19 Range/Units 06:07 Sodium 134 (133-145) mmol/L Potassium 4.0 (3.3-5.1) mmol/L Chloride 95 L (96-108) mmol/L Carbon Dioxide 19 L (22-30) mmol/L BUN 28 H (8-23) mg/dl Creatinine 1.2 (0.7-1.2) mg/dl Glucose 70 (70-105) mg/dL Calcium 9.2 (8.6-10.4) mg/dl Total Bilirubin 0.8 (0.0-1.0) mg/dL AST 23 (0-37) U/l ALT 12 (0-40) U/l Alkaline Phosphatase 65 (39-117) U/L Total Protein 6.6 (5.9-8.4) gm/dL Albumin 3.6 (3.2-5.2) gm/dL - Imaging CT scan - abdomen: report reviewed, image reviewed CT scan - pelvis: report reviewed, image reviewed Assessment and Plan (1) Appendicitis Status: Acute Assessment and plan: Mister Vu postoperative ileus has improved significantly with him having passed a large bowel movement. His abdominal pain is minimal consistent with postoperative discomfort. His abdomen is flat and soft. NG output has been approximately 250 over the last 8-12 hours of bilious fluid. He reports passing flatus. He is eager to have the NG tube removed understanding that if abdominal distention and discomfort recurred that he would need to possibly have it replaced. We agreed to have it removed and start him on a clear liquid diet. His WBC is down to 14. We will continue him on IV cefepime and Flagyl and recheck labs again tomorrow. His BUNs increased relative to the creatinine. The normal saline was increased to 100 cc per hour. We agreed to leave the Franks in for now and likely will have it removed tomorrow. We're anticipating possible discharge to home on oral antibiotics on 09/27/19. Current Visit: Yes - Time Spent With Patient Total time spent is greater than 50% in coordination of care (as documented) at patient's floor/unit and/or counseling patient:
[2019-09-25] MEDS ORDERED: cefOXitin 2 GM in DEXTROSE 5% IN WATER 50 ML IV STA (11:54)
[2019-09-25] MEDS ORDERED: cefOXitin 2 GM VIAL IV ONE (12:00)
[2019-09-25] MEDS: ACETAMINOPHEN 500 MG TABLET PO PRN ×2 (12:47→20:25)
[2019-09-25] MEDS: LATANOPROST OPHTH DROPS 2.5ML BOTTLE OS SCH (20:21)
[2019-09-25] MEDS ORDERED: SENNOSIDES 1 TABLET PO SCH (21:00)
[2019-09-26] MEDS: 0.9 % SODIUM CHLORIDE 10 ML SYRINGE IV SCH ×3 (06:00→21:29)
[2019-09-26] MEDS: metroNIDAZOLE 500 MG/100 ML BAG IV SCH ×3 (06:00→21:23)
[2019-09-26 07:01] LABS: Basophils # (Auto) 0.02 K/mcL (0.00-0.30); Basophils % (Auto) 0.1 % (0.0-2.0); Eosinophils # (Auto) 0.15 K/mcL (0.00-0.70); Eosinophils % (Auto) 0.9 % (0.0-7.0); Hematocrit 35.6 % (40.1-51.0); Hemoglobin 11.8 g/dL (13.7-17.5); Lymphocytes # (Auto) 1.33 K/mcL (1.50-4.80); Lymphocytes % (Auto) 8.4 % (15.5-49.0); Mean Cell Volume 94.4 fL (80.0-100.0); Mean Corpuscular HGB Conc 33.1 g/dL (31.0-36.0); Monocytes # (Auto) 1.68 K/mcL (0.10-0.90); Monocytes % (Auto) 10.6 % (1.0-12.0); Platelet Count 316 K/mcL (140-440); RBC 3.77 M/mcL (4.63-6.08); Red Cell Distribution Width 12.2 % (11.5-14.5); WBC 15.8 K/mcL (4.50-11.00)
[2019-09-26 07:20] LABS: ALT/SGPT 13 U/l (0-40); AST/SGOT 23 U/l (0-37); Albumin 3.4 gm/dL (3.2-5.2); Albumin/Globulin Ratio 1.1 (1.0-2.3); Alkaline Phosphatase 54 U/L (39-117); Bilirubin,Total 0.9 mg/dL (0.0-1.0); Calcium 8.8 mg/dl (8.6-10.4); Carbon Dioxide 20 mmol/L (22-30); Globulin 3.1 gm/dL (2.2-3.7); Glomerular Filtration Rate 83; Glucose 64 mg/dL (70-105)
[2019-09-26 07:21] LABS: Blood Urea Nitrogen 15 mg/dl (8-23); Chloride 94 mmol/L (96-108)
[2019-09-26] MEDS: PANTOPRAZOLE 40 MG VIAL IV SCH (08:31)
[2019-09-26] MEDS: HEPARIN 5,000 UNIT/ML VIAL SQ SCH (08:31)
[2019-09-26] MEDS: ACETAMINOPHEN 500 MG TABLET PO PRN (08:32)
[2019-09-26] MEDS: amLODIPine 10 MG TABLET PO SCH (08:32)
[2019-09-26] MEDS: LISINOPRIL 20 MG TABLET PO SCH (08:32)
[2019-09-26] MEDS: EZETIMIBE 10 MG TABLET PO SCH (08:32)
[2019-09-26] MEDS: METOPROLOL SUCCINATE 50 MG TAB.XL.24H PO SCH (08:32)
[2019-09-26] MEDS: CEFEPIME 2 GM VIAL IV SCH ×2 (08:41→20:36)
[2019-09-26] MEDS: TIOTROPIUM BROMIDE 18 MCG INHALANT INH SCH (10:58)
[2019-09-26] MEDS: BRIMONIDINE OPHTH DROPS 1 GTT BOTTLE 5ML OU SCH (10:58)
[2019-09-26] MEDS: 0.9 % SODIUM CHLORIDE 1,000 ML IV SCH ×2 (13:36→17:39)
[2019-09-26] MEDS ORDERED: diphenhydrAMINE 25 MG CAPSULE PO PRN (17:11)
[2019-09-26] MEDS: MELATONIN 3 MG TABLET PO PRN (20:37)
[2019-09-26] MEDS: LATANOPROST OPHTH DROPS 2.5ML BOTTLE OS SCH (20:38)
[2019-09-27] MEDS: 0.9 % SODIUM CHLORIDE 1,000 ML IV SCH ×3 (04:31→16:22)
[2019-09-27] MEDS: 0.9 % SODIUM CHLORIDE 10 ML SYRINGE IV SCH ×3 (05:11→21:19)
[2019-09-27] MEDS: metroNIDAZOLE 500 MG/100 ML BAG IV SCH ×3 (05:13→20:58)
[2019-09-27 07:36] LABS: Basophils # (Auto) 0.05 K/mcL (0.00-0.30); Basophils % (Auto) 0.3 % (0.0-2.0); Eosinophils # (Auto) 0.12 K/mcL (0.00-0.70); Eosinophils % (Auto) 0.7 % (0.0-7.0); Granulocytes % (Auto) 78.5 % (38.0-78.0); Hematocrit 33.7 % (40.1-51.0); Hemoglobin 11.5 g/dL (13.7-17.5); Mean Cell Volume 93.9 fL (80.0-100.0); Mean Corpuscular HGB Conc 34.1 g/dL (31.0-36.0); Mean Platelet Volume 9.1 fL (7.4-10.4); Monocytes # (Auto) 1.88 K/mcL (0.10-0.90); Monocytes % (Auto) 10.5 % (1.0-12.0); Platelet Count 341 K/mcL (140-440); RBC 3.59 M/mcL (4.63-6.08); Red Cell Distribution Width 12.4 % (11.5-14.5); WBC 17.9 K/mcL (4.50-11.00)
[2019-09-27 07:59] LABS: ALT/SGPT 10 U/l (0-40); AST/SGOT 19 U/l (0-37); Alkaline Phosphatase 70 U/L (39-117); Bilirubin,Total 0.5 mg/dL (0.0-1.0); Blood Urea Nitrogen 20 mg/dl (8-23); Calcium 8.7 mg/dl (8.6-10.4); Carbon Dioxide 16 mmol/L (22-30); Chloride 98 mmol/L (96-108); Globulin 2.9 gm/dL (2.2-3.7); Glomerular Filtration Rate 56; Glucose 71 mg/dL (70-105)
--- NOTE | 2019-09-27 09:08 | General Surgery Progress Note ---
Subjective Patient reports: bowel movement, afebrile, other (not able to urinate freely, need cath x 2) Narrative: Note initiated : 09/27/19 at 9:06 am Service Date, if different from initiated Date: [] Patient: Heber Stewart 84 y/o M admitted on 09/21/19 for abdominal pain. Chief Complaint: s/p appendectomy Pertinent ROS: tolerating po denies nausea lost hearing aides Objective Temp Pulse Resp BP Pulse Ox 97.8 F 96 H 16 115/67 95 09/27/19 04:00 09/27/19 04:00 09/27/19 04:00 09/27/19 04:00 09/27/19 04:00 - Additional Data Intake & Output - Last 24 hours: Intake & Output 09/25/19 09/26/19 09/27/19 09/28/19 05:59 05:59 05:59 05:59 Intake Total 1300 2550 2860 Output Total 2710 1150 1200 Balance -1410 1400 1660 Weight 112 lb 8 oz 113 lb 8 oz 111 lb 8 oz - General physical appearance no distress - Respiratory normal respiratory effort - Abdomen soft, non tender - Labs 09/27/19 06:26 09/27/19 06:26 Diabetes panel 09/27/19 Range/Units 06:26 Sodium 133 (133-145) mmol/L Potassium 3.3 (3.3-5.1) mmol/L Chloride 98 (96-108) mmol/L Carbon Dioxide 16 L (22-30) mmol/L BUN 20 (8-23) mg/dl Creatinine 1.2 (0.7-1.2) mg/dl Glucose 71 (70-105) mg/dL Calcium 8.7 (8.6-10.4) mg/dl AST 19 (0-37) U/l ALT 10 (0-40) U/l Alkaline Phosphatase 70 (39-117) U/L Total Protein 5.9 (5.9-8.4) gm/dL Albumin 3.0 L (3.2-5.2) gm/dL Calcium panel 09/27/19 Range/Units 06:26 Calcium 8.7 (8.6-10.4) mg/dl Albumin 3.0 L (3.2-5.2) gm/dL Pituitary panel 09/27/19 Range/Units 06:26 Sodium 133 (133-145) mmol/L Potassium 3.3 (3.3-5.1) mmol/L Chloride 98 (96-108) mmol/L Carbon Dioxide 16 L (22-30) mmol/L BUN 20 (8-23) mg/dl Creatinine 1.2 (0.7-1.2) mg/dl Glucose 71 (70-105) mg/dL Calcium 8.7 (8.6-10.4) mg/dl Adrenal panel 09/27/19 Range/Units 06:26 Sodium 133 (133-145) mmol/L Potassium 3.3 (3.3-5.1) mmol/L Chloride 98 (96-108) mmol/L Carbon Dioxide 16 L (22-30) mmol/L BUN 20 (8-23) mg/dl Creatinine 1.2 (0.7-1.2) mg/dl Glucose 71 (70-105) mg/dL Calcium 8.7 (8.6-10.4) mg/dl Total Bilirubin 0.5 (0.0-1.0) mg/dL AST 19 (0-37) U/l ALT 10 (0-40) U/l Alkaline Phosphatase 70 (39-117) U/L Total Protein 5.9 (5.9-8.4) gm/dL Albumin 3.0 L (3.2-5.2) gm/dL Assessment and Plan (1) Appendicitis Status: Acute Assessment and plan: Abdomen benign on exam, tolerating PO, BM+ Current Visit: Yes (2) Leukocytosis (leucocytosis) Status: Acute Assessment and plan: Unclear etiology Dr. Vaca will adivse today Continue cefepime and flagyl for now Current Visit: Yes (3) Urinary retention Status: Acute Assessment and plan: Discussed with hospitalist who will advise. May need Franks, bladder med , or urology consultation? Current Visit: Yes - Time Spent With Patient Total time spent is greater than 50% in coordination of care (as documented) at patient's floor/unit and/or counseling patient: 15 - 24 minutes
[2019-09-27] MEDS: METOPROLOL SUCCINATE 50 MG TAB.XL.24H PO SCH (09:22)
[2019-09-27] MEDS: PANTOPRAZOLE 40 MG VIAL IV SCH (09:22)
[2019-09-27] MEDS: EZETIMIBE 10 MG TABLET PO SCH (09:22)
[2019-09-27] MEDS: LISINOPRIL 20 MG TABLET PO SCH (09:22)
[2019-09-27] MEDS: amLODIPine 10 MG TABLET PO SCH (09:22)
[2019-09-27] MEDS: BRIMONIDINE OPHTH DROPS 1 GTT BOTTLE 5ML OU SCH (09:23)
[2019-09-27] MEDS: TIOTROPIUM BROMIDE 18 MCG INHALANT INH SCH (09:24)
[2019-09-27] MEDS: CEFEPIME 2 GM VIAL IV SCH ×2 (09:27→20:47)
--- NOTE | 2019-09-27 09:31 | Internal Med Progress Note ---
Medical - PN: Subj Patient information: Note initiated : 09/27/19 at 9:22 am Service Date, if different from initiated Date: [] Patient: Heber Stewart a 84 y/o M admitted on 09/21/19 for abdominal pain. Chief Complaint: [] Interval history: 09/21 Mr. Stewart is a 84 year old M with a history of COPD, intermittently oxygen requiring, asbestosis, left upper lobectomy, hypertension, peripheral arterial disease who presents to the emergency department abdominal pain. Patient states he was up early this morning, which is his usual and ate breakfast about 4. At 9 AM, he is preparing a sandwich for his next meal when he developed severe stabbing acute onset of right lower quadrant pain which doubled him over. He tried eating his sandwich, and finished about half of it but had to stop because of pain. Did not seem to worsen the pain, but it did not ameliorated either. Patient presents to the emergency department because of the pain, CT scan reveals simple appendicitis. Patient denies any fevers or chills. He had nausea with no emesis earlier this morning. He has had constipation which is been ongoing for the last several months. He did have a normal bowel movement yesterday. Patient was evaluated by Dr. Judd for surgery. Patient is currently on clopidogrel for peripheral arterial disease as multiple medical comorbidities. After discussion, decision was made to treat with antibiotics allowing for an elective appendectomy in the future. 09/22/2019 White count went from 15.5-16.5, patient still complaining of significant right lower quadrant pain this morning. He went to the OR for laparoscopic appendectomy which he tolerated well. This afternoon no specific complaints, quite pleased that his lower abdominal pain has resolved. 09/23 Patient doing well this morning. Wishes he could have more than clear liquid diet. Hoping to go home today. No longer on oxygen, was maintaining good sats on room air (oftentimes only wears it as needed at home). White count about the same. 09/27 Reconsulted as patient is white blood cell count is increasing and he developed some urinary retention. Infectious disease is following. Patient finally slept decent last night. has chronic dyspnea. Review of Systems: denies headache/fever/chills/nausea/vomiting/chest or abdominal pain/cough/diar willam. Otherwise see above. - Constitutional Vitals: Vital Signs Temp Pulse Resp BP Pulse Ox 97.8 F 96 H 16 115/67 95 09/27/19 04:00 09/27/19 04:00 09/27/19 04:00 09/27/19 04:00 09/27/19 04:00 Period Temp Pulse Resp BP Sys/Batista Pulse Ox Last 24 Hr 97.8 F-99.2 F 94-101 16-22 98-145/50-76 93-95 Intake and Output 09/26/19 09/27/19 09/27/19 21:59 05:59 13:59 Intake Total 300 1100 Output Total 350 350 Balance -50 750 Weight 50.576 kg Intake & Output: Intake & Output 09/26/19 09/27/19 09/27/19 21:59 05:59 13:59 Intake Total 300 1100 Output Total 350 350 Balance -50 750 Weight 50.576 kg Intake: IV 100 1100 Sodium Chloride 0.9% 1,000 ml @ 1000 100 mls/hr IV .Q10H [facility] Rx#: [id number] Oral 200 Output: Urine Catheter Amount 350 350 Other: Urine Appearance Clear Clear Urine Color Bright Yellow Dark Yellow Urine Odor Normal Exam: General: Alert, Awake, No acute Distress Eyes/N/T: EOMI, Head/Neck: neck supple, CV: RRR, No murmurs, Pulm: Clear b/l, no wheezing/rhonchi/rales Abd: soft, +BS x4 Ext: no clubbing/cyanosis/edema Neuro: Alert, no focal deficits, moves all extremities, Skin: warm/dry Medical - PN: Obj Da - Labs CBC & Chem 7: 09/27/19 06:26 09/27/19 06:26 Labs: Abnormal Lab Results 09/27/19 09/27/19 09/26/19 06:26 06:26 05:55 WBC 17.9 H RBC 3.59 L Hgb 11.5 L Hct 33.7 L Gran % 78.5 H Lymph % (Auto) 10.0 L Gran # 14.09 H Lymph # (Auto) [place] # (Auto) 1.88 H Sodium 130 L Chloride 94 L Carbon Dioxide 16 L 20 L Anion Gap 19.0 H BUN Glucose 64 L Albumin 3.0 L 09/26/19 09/25/19 09/25/19 05:55 06:07 06:07 WBC 15.8 H 14.4 H RBC 3.77 L 4.28 L Hgb 11.8 L 13.2 L Hct 35.6 L Gran % 80.0 H 80.6 H Lymph % (Auto) 8.4 L 8.5 L Gran # 12.65 H 11.63 H Lymph # (Auto) 1.33 L 1.22 L [place] # (Auto) 1.68 H 1.44 H Sodium Chloride 95 L Carbon Dioxide 19 L Anion Gap 20.0 H BUN 28 H Glucose Albumin Meds: Medications Acetaminophen (Tylenol) 1,000 mg PO Q8HP PRN; Protocol PRN Reason: Pain Last Admin: 09/26/19 08:32 Dose: 1,000 mg Documented by: Albuterol Sulfate (Ventolin) 2.5 mg NEB Q4HP PRN PRN Reason: Shortness Of Breath Amlodipine Besylate (Norvasc) 10 mg PO QAM [facility] Last Admin: 09/26/19 08:32 Dose: 10 mg Documented by: Artificial Tears (Refresh Celluvisc) 1 each OU QIDP PRN PRN Reason: Dry Eye(s) Benzocaine (Cetacaine) 1 spray TOPICAL PRN PRN PRN Reason: Sore Throat Brimonidine Tartrate (Alphagan P Ophth Drops) 1 gtt OU DAILY [facility] Last Admin: 09/26/19 10:58 Dose: 1 gtt Documented by: Cefepime HCl (Maxipime) 2 gm IV Q12H [facility]; Protocol Last Admin: 09/26/19 20:36 Dose: 2 gm Documented by: Diphenhydramine HCl (Benadryl) 25 mg PO HSP PRN PRN Reason: Insomnia Ezetimibe (Zetia) 10 mg PO DAILY [facility] Last Admin: 09/26/19 08:32 Dose: 10 mg Documented by: Metronidazole (Flagyl) 500 mg in 100 mls @ 100 mls/hr IV Q8H [facility]; Protocol Last Admin: 09/27/19 05:13 Dose: 100 mls/hr Documented by: Sodium Chloride (Sodium Chloride 0.9%) 1,000 mls @ 100 mls/hr IV .Q10H [facility] Last Admin: 09/27/19 04:31 Dose: 100 mls/hr Documented by: Latanoprost (Xalatan Ophth Drops) 1 gtt OS HS [facility] Last Admin: 09/26/19 20:38 Dose: 1 gtt Documented by: Lisinopril (Zestril) 40 mg PO QAM [facility] Last Admin: 09/26/19 08:32 Dose: 40 mg Documented by: Melatonin (Melatonin 3mg Tablet) 3 mg PO HSP PRN PRN Reason: Sleep Last Admin: 09/26/19 20:37 Dose: 3 mg Documented by: Metoprolol Succinate (Toprol Xl) 50 mg PO DAILY [facility] Last Admin: 09/26/19 08:32 Dose: 50 mg Documented by: Morphine Sulfate (Morphine) 1 - 2 mg IV Q2HP PRN; Protocol PRN Reason: Per Pain Protocol Last Admin: 09/26/19 19:26 Dose: 2 mg Documented by: Naloxone HCl (Narcan) 0.1 mg IV Q2MIN PRN PRN Reason: Opiate Reversal Ondansetron HCl (Zofran) 4 mg IV Q6HP PRN PRN Reason: Nausea And Vomiting Pantoprazole Sodium (Protonix) 40 mg IV DAILY [facility] Last Admin: 09/26/19 08:31 Dose: 40 mg Documented by: Sodium Chloride (Saline Flush) 10 ml IV Q8 [facility] Last Admin: 09/27/19 05:11 Dose: Not Given Documented by: Tiotropium [place] (Spiriva) 18 mcg INH DAILY [facility] Last Admin: 09/26/19 10:58 Dose: Not Given Documented by: Medical - PN: A/P - Time Spent With Patient Total time spent is greater than 50% in coordination of care (as documented) at patient's floor/unit and/or counseling patient: - Narrative A/P Narrative: A: *Acute appendicitis. s/p Appy (09/22) *Leukocytosis: increasing *Post-op ileus: resolved *Urinary Retention: *PAD w/stenting to the iliac and SFA arteries in the past: home med clopidogrel. Patient states he now takes half tablet that is a blood thinner because he had been experiencing epistaxis. He may be taking 37.5 mg of clopidogrel daily. 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 *HTN: On lisinopril, metoprolol and amlodipine. P: Postop care per surgery -diet per surgery -Abx per ID, currently on Cefepime and Flagyl; further recs from ID, UA/BC resume antiplatetes when ok with surgery -Continue ezetimibe -Continue Spiriva, PRN nebs -cont home BP meds -rinaldi has been placed, start flow max, will d/c rinaldi prior to d/c and check post-voids, if have to replace rinaldi then pt will need to f/u with Urology -ppx: heparin/ppi Medical - PN: Qual - VTE Deep Vein Thrombosis/Pulmonary Embolism Present on Admission: No
[2019-09-27] MEDS ORDERED: IPRATROPIUM/ALBUTEROL 3 ML AMPUL.NEB NEB PRN (09:49)
[2019-09-27] MEDS ORDERED: TAMSULOSIN 0.4 MG CAPSULE PO ONE (09:49)
--- NOTE | 2019-09-27 10:13 | Infectious Disease Prog Note ---
Subjective Patient information: Note initiated : 09/27/19 at 10:02 am Service Date, if different from initiated Date: [] Patient: Heber Stewart 84 y/o M admitted on 09/21/19 for abdominal pain. Chief Complaint: [] Interval history: Pt reports lower belly discomfort and attributes it to being no able to pee since last night. rates his belly pain at 5/10. Denied any fever, chills, n/v, diarrhea. Has a soft BM this am (not watery per RN). Objective Objective Narrative: ao x 3, in mild distress has thrush chest cta s1 s2 normal, no m/r/g abd is tender in lower 1/2, with no tenderness or rebound or guarding elsewhere, bowel sounds ++ - Vital Signs Vital signs: Vital Signs Temp Pulse Resp BP BP Pulse Ox 09/27/19 08:00 16 95 09/27/19 04:00 36.6 C 96 H 16 115/67 95 09/26/19 23:42 37.3 C H 94 H 22 98/50 94 09/26/19 19:10 36.6 C 98 H 18 134/72 93 09/26/19 16:00 36.7 C 99 H 20 145/76 95 09/26/19 12:00 36.8 C 101 H 18 127/72 93 Intake and Output 09/26/19 09/27/19 09/27/19 21:59 05:59 13:59 Intake Total 300 1100 100 Output Total 350 350 Balance -50 750 100 Intake: IV 100 1100 100 Sodium Chloride 0.9% 1,000 ml @ 1000 100 mls/hr IV .Q10H [facility] Rx#: [id number] Oral 200 Output: Urine Catheter Amount 350 350 Other: Urine Appearance Clear Clear Clear Straight Clear Urine Color Bright Yellow Dark Yellow Dark Yellow Straight Dark Yellow Urine Odor Normal Normal Straight Normal Weight 50.576 kg Intake & Output: Intake & Output 09/26/19 09/27/19 09/27/19 21:59 05:59 13:59 Intake Total 300 1100 100 Output Total 350 350 Balance -50 750 100 Weight 50.576 kg Intake: IV 100 1100 100 Sodium Chloride 0.9% 1,000 ml @ 1000 100 mls/hr IV .Q10H [facility] Rx#: [id number] Oral 200 Output: Urine Catheter Amount 350 350 Other: Urine Appearance Clear Clear Clear Straight Clear Urine Color Bright Yellow Dark Yellow Dark Yellow Straight Dark Yellow Urine Odor Normal Normal Straight Normal - Lab 09/27/19 06:26 09/27/19 06:26 Most recent lab results Calcium 8.7 mg/dl (8.6-10.4) 09/27/19 06:26 Medications Active Medications: Acetaminophen (Tylenol) 1,000 mg PO Q8HP PRN; Protocol PRN Reason: Pain Last Admin: 09/26/19 08:32 Dose: 1,000 mg Documented by: Admin: 09/25/19 20:25 Dose: 1,000 mg Documented by: Admin: 09/25/19 12:47 Dose: 1,000 mg Documented by: RIN Albuterol Sulfate (Ventolin) 2.5 mg NEB Q4HP PRN PRN Reason: Shortness Of Breath Albuterol/Ipratropium (Duoneb) 3 ml NEB Q4HP PRN PRN Reason: Shortness Of Breath Amlodipine Besylate (Norvasc) 10 mg PO QAM [facility] Admin: 09/27/19 09:22 Dose: 10 mg Documented by: Admin: 09/26/19 08:32 Dose: 10 mg Documented by: Admin: 09/25/19 09:03 Dose: 10 mg Documented by: Admin: 09/24/19 08:23 Dose: 10 mg Documented by: Admin: 09/23/19 09:16 Dose: 10 mg Documented by: Admin: 09/22/19 08:45 Dose: Not Given Documented by: [id number] Non-Admin Reason: NPO Artificial Tears (Refresh Celluvisc) 1 each OU QIDP PRN PRN Reason: Dry Eye(s) Benzocaine (Cetacaine) 1 spray TOPICAL PRN PRN PRN Reason: Sore Throat Brimonidine Tartrate (Alphagan P Ophth Drops) 1 gtt OU DAILY [facility] Admin: 09/27/19 09:23 Dose: 1 gtt Documented by: Admin: 09/26/19 10:58 Dose: 1 gtt Documented by: Admin: 09/25/19 08:56 Dose: Not Given Documented by: RIN Non-Admin Reason: Unavailable Admin: 09/24/19 08:21 Dose: Not Given Documented by: FERNANDO Non-Admin Reason: Unavailable Admin: 09/23/19 09:19 Dose: Not Given Documented by: ISAIAH Non-Admin Reason: Unavailable Admin: 09/22/19 08:44 Dose: Not Given Documented by: ERMIAS Non-Admin Reason: Unavailable Cefepime HCl (Maxipime) 2 gm IV Q12H [facility]; Protocol Last Admin: 09/27/19 09:27 Dose: 2 gm Documented by: Admin: 09/26/19 20:36 Dose: 2 gm Documented by: Admin: 09/26/19 08:41 Dose: 2 gm Documented by: Admin: 09/25/19 20:21 Dose: 2 gm Documented by: Admin: 09/25/19 09:04 Dose: 2 gm Documented by: Admin: 09/24/19 21:22 Dose: 2 gm Documented by: EVELIA Diphenhydramine HCl (Benadryl) 25 mg PO HSP PRN PRN Reason: Insomnia Ezetimibe (Zetia) 10 mg PO DAILY [facility] Last Admin: 09/27/19 09:22 Dose: 10 mg Documented by: Admin: 09/26/19 08:32 Dose: 10 mg Documented by: Admin: 09/25/19 09:03 Dose: 10 mg Documented by: Admin: 09/24/19 08:22 Dose: 10 mg Documented by: Admin: 09/23/19 09:16 Dose: 10 mg Documented by: Admin: 09/22/19 08:45 Dose: Not Given Documented by: ERMIAS Non-Admin Reason: NPO Heparin Sodium (Porcine) (Heparin) 5,000 unit SQ Q12 [facility] Metronidazole (Flagyl) 500 mg in 100 mls @ 100 mls/hr IV Q8H [facility]; Protocol Last Infusion: 09/27/19 09:24 Dose: 100 mls/hr Documented by: Admin: 09/27/19 05:13 Dose: 100 mls/hr Documented by: Infusion: 09/26/19 22:23 Dose: 100 mls/hr Documented by: Admin: 09/26/19 21:23 Dose: 100 mls/hr Documented by: Infusion: 09/26/19 14:38 Dose: 100 mls/hr Documented by: Admin: 09/26/19 13:38 Dose: 100 mls/hr Documented by: Infusion: 09/26/19 07:00 Dose: 100 mls/hr Documented by: Admin: 09/26/19 06:00 Dose: 100 mls/hr Documented by: Infusion: 09/25/19 23:13 Dose: 100 mls/hr Documented by: Admin: 09/25/19 22:13 Dose: 100 mls/hr Documented by: Infusion: 09/25/19 15:18 Dose: 100 mls/hr Documented by: Admin: 09/25/19 14:18 Dose: 100 mls/hr Documented by: Infusion: 09/25/19 07:19 Dose: 0 mls/hr Documented by: Admin: 09/25/19 06:09 Dose: 100 mls/hr Documented by: Infusion: 09/24/19 23:05 Dose: 100 mls/hr Documented by: Admin: 09/24/19 22:05 Dose: 100 mls/hr Documented by: Infusion: 09/24/19 14:05 Dose: 100 mls/hr Documented by: Admin: 09/24/19 13:03 Dose: 100 mls/hr Documented by: FERNANDO Sodium Chloride (Sodium Chloride 0.9%) 1,000 mls @ 100 mls/hr IV .Q10H [facility] Admin: 09/27/19 04:31 Dose: 100 mls/hr Documented by: Infusion: 09/27/19 03:39 Dose: 100 mls/hr Documented by: Admin: 09/26/19 17:39 Dose: 100 mls/hr Documented by: Admin: 09/26/19 13:36 Dose: Not Given Documented by: SEJAL Non-Admin Reason: sl Infusion: 09/26/19 06:22 Dose: 100 mls/hr Documented by: Admin: 09/25/19 20:22 Dose: 100 mls/hr Documented by: Admin: 09/25/19 12:31 Dose: Not Given Documented by: RIN Non-Admin Reason: Duplicate Latanoprost (Xalatan Ophth Drops) 1 gtt OS HS [facility] Last Admin: 09/26/19 20:38 Dose: 1 gtt Documented by: Admin: 09/25/19 20:21 Dose: 1 gtt Documented by: Admin: 09/24/19 21:22 Dose: Not Given Documented by: EVELIA Non-Admin Reason: Unavailable Admin: 09/23/19 20:38 Dose: Not Given Documented by: TOMEKA Non-Admin Reason: Unavailable Admin: 09/22/19 21:07 Dose: Not Given Documented by: ALEAH Non-Admin Reason: Unavailable Admin: 09/21/19 21:25 Dose: Not Given Documented by: TOMEKA Non-Admin Reason: Unavailable Lisinopril (Zestril) 40 mg PO QAM [facility] Last Admin: 09/27/19 09:22 Dose: 40 mg Documented by: Admin: 09/26/19 08:32 Dose: 40 mg Documented by: Admin: 09/25/19 09:03 Dose: 40 mg Documented by: Admin: 09/24/19 08:22 Dose: 40 mg Documented by: Admin: 09/23/19 09:16 Dose: 40 mg Documented by: Admin: 09/22/19 08:45 Dose: Not Given Documented by: ERMIAS Non-Admin Reason: NPO Melatonin (Melatonin 3mg Tablet) 3 mg PO HSP PRN PRN Reason: Sleep Last Admin: 09/26/19 20:37 Dose: 3 mg Documented by: ALEAH Metoprolol Succinate (Toprol Xl) 50 mg PO DAILY [facility] Last Admin: 09/27/19 09:22 Dose: 50 mg Documented by: Admin: 09/26/19 08:32 Dose: 50 mg Documented by: Admin: 09/25/19 09:03 Dose: 50 mg Documented by: Admin: 09/24/19 08:22 Dose: 50 mg Documented by: Admin: 09/23/19 09:16 Dose: 50 mg Documented by: Admin: 09/22/19 13:37 Dose: 50 mg Documented by: [id number] Comments: GAVE LATE POST-OPERATIVELY R/T SEDATION Morphine Sulfate (Morphine) 1 - 2 mg IV Q2HP PRN; Protocol PRN Reason: Per Pain Protocol Last Admin: 09/26/19 19:26 Dose: 2 mg Documented by: ALEAH Comments: 06/01 Admin: 09/25/19 14:16 Dose: 2 mg Documented by: Admin: 09/25/19 10:31 Dose: 2 mg Documented by: Admin: 09/25/19 06:15 Dose: 2 mg Documented by: Admin: 09/24/19 15:13 Dose: 1 mg Documented by: FERNANDO Naloxone HCl (Narcan) 0.1 mg IV Q2MIN PRN PRN Reason: Opiate Reversal Ondansetron HCl (Zofran) 4 mg IV Q6HP PRN PRN Reason: Nausea And Vomiting Pantoprazole Sodium (Protonix) 40 mg IV DAILY [facility] Last Admin: 09/27/19 09:22 Dose: 40 mg Documented by: Admin: 09/26/19 08:31 Dose: 40 mg Documented by: Admin: 09/25/19 09:04 Dose: 40 mg Documented by: Admin: 09/24/19 08:22 Dose: 40 mg Documented by: Admin: 09/23/19 09:16 Dose: 40 mg Documented by: Admin: 09/22/19 08:51 Dose: 40 mg Documented by: [id number] Admin: 09/21/19 17:10 Dose: 40 mg Documented by: RIN Sodium Chloride (Saline Flush) 10 ml IV Q8 [facility] Last Admin: 09/27/19 05:11 Dose: Not Given Documented by: ALEAH Non-Admin Reason: Bag Still Infusing Admin: 09/26/19 21:29 Dose: Not Given Documented by: ALEAH Non-Admin Reason: Bag Still Infusing Admin: 09/26/19 13:38 Dose: 10 ml Documented by: Admin: 09/26/19 06:00 Dose: Not Given Documented by: EVELIA Non-Admin Reason: Continuous IV Admin: 09/25/19 20:22 Dose: Not Given Documented by: EVELIA Non-Admin Reason: Continuous IV Admin: 09/25/19 14:18 Dose: 10 ml Documented by: RIN Tamsulosin HCl (Flomax) 0.4 mg PO HS [facility] Tiotropium Vandervoort (Spiriva) 18 mcg INH DAILY [facility] Last Admin: 09/27/19 09:24 Dose: Not Given Documented by: FERNANDO Non-Admin Reason: Unavailable Admin: 09/26/19 10:58 Dose: Not Given Documented by: SEJAL Non-Admin Reason: Unavailable Admin: 09/25/19 10:31 Dose: Not Given Documented by: RIN Non-Admin Reason: Unavailable Admin: 09/24/19 08:22 Dose: Not Given Documented by: FERNANDO Non-Admin Reason: Unavailable Admin: 09/23/19 09:25 Dose: Not Given Documented by: [email or web address] Non-Admin Reason: Unavailable Admin: 09/22/19 08:45 Dose: Not Given Documented by: [id number] Non-Admin Reason: Unavailable Assessment and Plan - Narrative A/P Narrative: A: 1. Acute appendicitis with small perforation: POD 6 after laparoscopic appendectomy - CT done 09/24 r/o any intra-abd fluid collection, perforation. Showed atypical ileus with a transition point at splenic flexure 2. Postoperative ileus: resolved. bowel sounds +, has soft BMs 3. Leucocytosis: WBC 17.9k today [78.5% PMNs] <--------15.8k yesterday <----------14.4k on 09/25 - multifactorial: postoperative, localized peritonitis, r/o any UTI or bacteremia 4. BPH: pt unable to urinate without straight cath or rinaldi - had multiple attempts for straight cath. Could have led to bacterial translocation from tract into systemic circulation - on Tamsulosin 5. Oral thrush Recommendations: - Continue IV Cefepime 2 gm q12 hrs and IV Metronidazole 500 mg q8 hrs, day 4 - 2 sets of blood Cx and a urine Cx ordered - If WBC continues to trend up; will consider adding IV Vanc and imaging of chest, abdomen and pelvis - start PO Nystatin 5 ml swish and spit qid x 7 days. Plan d/w Dr. Mckeon and Dr. Saleh will follow Zaire Vaca MD Infectious diseases
[2019-09-27] MEDS: HEPARIN 5,000 UNIT/ML VIAL SQ SCH ×2 (10:34→20:56)
[2019-09-27 11:20] LABS: Appearance,Urine CLEAR; Bacteria,Urine 0 /hpf (0); Bilirubin,Urine NEG (NEG); Color,Urine YELLOW; Culture Indicated,Urine NO; Glucose,Urine (UA) NEGATIVE (NEG); Ketones,Urine 80 mg/dL (NEG); Leukocyte Esterase,Urine NEG /uL (NEG); Mucus,Urine FEW /hpf (0); Nitrate,Urine NEG (NEG); Protein,Urine 30 mg/dL (NEG); Specific Gravity,Urine 1.019 (1.000-1.035); Urine Amorphous Crystals FEW /hpf (0); Urine Blood 0.2 mg/dL (<0.03); Urine Hyaline Cast 9 /lpf (0-2); Urine RBC 23 /hpf (0-1); Urine Squamous Epithelial Cell 0 /hpf (0-4); Urine WBC 7 /hpf (0-4); Urobilinogen,Urine NEG (NEG)
[2019-09-27 11:22] LABS: Band Neutrophils % 2 % (0-10); Lymphocytes % 9 % (15-49); Monocytes % (Manual) 11 % (1-12); Platelet Estimate NORMAL (NORMAL); RBC Morphology NORMAL (NORMAL); Reactive Lymphocytes 1 % (0-2); Segmented Neutrophils % 77 % (38-78)
[2019-09-27] MEDS: NYSTATIN 500,000 UNITS/5 ML ORAL.SUSP SSP SCH ×2 (16:23→20:48)
[2019-09-27] MEDS: LATANOPROST OPHTH DROPS 2.5ML BOTTLE OS SCH (20:00)
[2019-09-27] MEDS: [UNRECOGNIZED DRUG - REMARK] PO SCH (20:48)
[2019-09-27] MEDS: TAMSULOSIN 0.4 MG CAPSULE PO SCH (20:48)
[2019-09-27] MEDS: ACETAMINOPHEN 500 MG TABLET PO PRN (23:46)
[2019-09-27] MEDS: MELATONIN 3 MG TABLET PO PRN (23:46)
[2019-09-28] MEDS: 0.9 % SODIUM CHLORIDE 1,000 ML IV SCH ×3 (00:34→21:21)
[2019-09-28] MEDS: metroNIDAZOLE 500 MG/100 ML BAG IV SCH ×2 (05:29→13:14)
[2019-09-28] MEDS: 0.9 % SODIUM CHLORIDE 10 ML SYRINGE IV SCH ×3 (05:31→21:21)
--- NOTE | 2019-09-28 07:10 | Internal Med Progress Note ---
Medical - PN: Subj Patient information: Note initiated : 09/28/19 at 7:08 am Service Date, if different from initiated Date: [] Patient: Heber Stewart a 84 y/o M admitted on 09/21/19 for abdominal pain. Chief Complaint: [] Interval history: 09/21 Mr. Stewart is a 84 year old M with a history of COPD, intermittently oxygen requiring, asbestosis, left upper lobectomy, hypertension, peripheral arterial disease who presents to the emergency department abdominal pain. Patient states he was up early this morning, which is his usual and ate breakfast about 4. At 9 AM, he is preparing a sandwich for his next meal when he developed severe stabbing acute onset of right lower quadrant pain which doubled him over. He tried eating his sandwich, and finished about half of it but had to stop because of pain. Did not seem to worsen the pain, but it did not ameliorated either. Patient presents to the emergency department because of the pain, CT scan reveals simple appendicitis. Patient denies any fevers or chills. He had nausea with no emesis earlier this morning. He has had constipation which is been ongoing for the last several months. He did have a normal bowel movement yesterday. Patient was evaluated by Dr. Judd for surgery. Patient is currently on clopidogrel for peripheral arterial disease as multiple medical comorbidities. After discussion, decision was made to treat with antibiotics allowing for an elective appendectomy in the future. 09/22/2019 White count went from 15.5-16.5, patient still complaining of significant right lower quadrant pain this morning. He went to the OR for laparoscopic appendectomy which he tolerated well. This afternoon no specific complaints, quite pleased that his lower abdominal pain has resolved. 09/23 Patient doing well this morning. Wishes he could have more than clear liquid diet. Hoping to go home today. No longer on oxygen, was maintaining good sats on room air (oftentimes only wears it as needed at home). White count about the same. 09/27 Reconsulted as patient is white blood cell count is increasing and he developed some urinary retention. Infectious disease is following. Patient finally slept decent last night. has chronic dyspnea. 09/28 Patient states poor sleep last night. Seems to be frustrated with being in the hospital. Pending repeat laboratory. May need eventual repeat CT abdomen pelvis if leukocytosis persists or increases. Rinaldi in place. Review of Systems: denies headache/fever/chills/nausea/vomiting/chest or abdominal pain/cough/diarrhea. Otherwise see above. - Constitutional Vitals: Vital Signs Temp Pulse Resp BP Pulse Ox 98.1 F 99 H 24 H 114/65 93 09/28/19 03:33 09/28/19 03:33 09/28/19 03:33 09/28/19 03:33 09/28/19 03:33 Period Temp Pulse Resp BP Sys/Batista Pulse Ox Last 24 Hr 97.5 F-101.3 F 60-105 16-36 109-137/56-74 93-97 Intake and Output 09/27/19 09/28/19 09/28/19 21:59 05:59 13:59 Intake Total 1200 100 Output Total 1275 Balance 1200 -1175 Weight 52.163 kg Intake & Output: Intake & Output 09/27/19 09/28/19 09/28/19 21:59 05:59 13:59 Intake Total 1200 100 Output Total 1275 Balance 1200 -1175 Weight 52.163 kg Intake: IV 1200 Sodium Chloride 0.9% 1,000 ml @ 1000 100 mls/hr IV .Q10H [facility] Rx#: [id number] Oral 100 Output: Urine Catheter Amount 1275 Other: Urine Appearance Clear Clear Urine Color Bright Yellow Bright Yellow Urine Odor Normal Normal Stool Size Small Stool Color Green Stool Consistency Loose # Bowel Movements 1 Exam: General: Alert, Awake, No acute Distress Eyes/N/T: EOMI, Head/Neck: neck supple, CV: RRR, No murmurs, Pulm: Clear b/l, no wheezing/rhonchi/rales Abd: soft, +BS x4 Ext: no clubbing/cyanosis/edema Neuro: Alert, no focal deficits, moves all extremities, Skin: warm/dry Medical - PN: Obj Da - Labs CBC & Chem 7: 09/27/19 06:26 09/28/19 06:00 Labs: Abnormal Lab Results 09/27/19 09/27/19 09/27/19 10:12 06:26 06:26 WBC RBC Hgb Hct Gran % Lymph % (Auto) Gran # Lymph # (Auto) Rains # (Auto) Lymphocytes % 9 L Sodium Chloride Carbon Dioxide 16 L Anion Gap 19.0 H BUN Glucose Albumin 3.0 L Urine Protein 30 A Urine Ketones 80 A Urine Occult Blood 0.2 A Urine RBC 23 H Urine WBC 7 H Amorphous Crystals Few A Hyaline Casts 9 H 09/27/19 09/26/19 09/26/19 06:26 05:55 05:55 WBC 17.9 H 15.8 H RBC 3.59 L 3.77 L Hgb 11.5 L 11.8 L Hct 33.7 L 35.6 L Gran % 78.5 H 80.0 H Lymph % (Auto) 10.0 L 8.4 L Gran # 14.09 H 12.65 H Lymph # (Auto) 1.33 L Rains # (Auto) 1.88 H 1.68 H Lymphocytes % Sodium 130 L Chloride 94 L Carbon Dioxide 20 L Anion Gap BUN Glucose 64 L Albumin Urine Protein Urine Ketones Urine Occult Blood Urine RBC Urine WBC Amorphous Crystals Hyaline Casts 09/25/19 09/25/19 06:07 06:07 WBC 14.4 H RBC 4.28 L Hgb 13.2 L Hct Gran % 80.6 H Lymph % (Auto) 8.5 L Gran # 11.63 H Lymph # (Auto) 1.22 L Rains # (Auto) 1.44 H Lymphocytes % Sodium Chloride 95 L Carbon Dioxide 19 L Anion Gap 20.0 H BUN 28 H Glucose Albumin Urine Protein Urine Ketones Urine Occult Blood Urine RBC Urine WBC Amorphous Crystals Hyaline Casts Meds: Medications Acetaminophen (Tylenol) 1,000 mg PO Q8HP PRN; Protocol PRN Reason: Pain Last Admin: 09/27/19 23:46 Dose: 1,000 mg Documented by: Albuterol Sulfate (Ventolin) 2.5 mg NEB Q4HP PRN PRN Reason: Shortness Of Breath Albuterol/Ipratropium (Duoneb) 3 ml NEB Q4HP PRN PRN Reason: Shortness Of Breath Amlodipine Besylate (Norvasc) 10 mg PO QAM [facility] Last Admin: 09/27/19 09:22 Dose: 10 mg Documented by: Artificial Tears (Refresh Celluvisc) 1 each OU QIDP PRN PRN Reason: Dry Eye(s) Benzocaine (Cetacaine) 1 spray TOPICAL PRN PRN PRN Reason: Sore Throat Brimonidine Tartrate (Alphagan P Ophth Drops) 1 gtt OU DAILY [facility] Last Admin: 09/27/19 09:23 Dose: 1 gtt Documented by: Cefepime HCl (Maxipime) 2 gm IV Q12H [facility]; Protocol Last Admin: 09/27/19 20:47 Dose: 2 gm Documented by: Diphenhydramine HCl (Benadryl) 25 mg PO HSP PRN PRN Reason: Insomnia Last Admin: 09/27/19 20:48 Dose: 25 mg Documented by: Ezetimibe (Zetia) 10 mg PO DAILY [facility] Last Admin: 09/27/19 09:22 Dose: 10 mg Documented by: Heparin Sodium (Porcine) (Heparin) 5,000 unit SQ Q12 [facility] Last Admin: 09/27/19 20:56 Dose: 5,000 unit Documented by: Metronidazole (Flagyl) 500 mg in 100 mls @ 100 mls/hr IV Q8H [facility]; Protocol Last Admin: 09/28/19 05:29 Dose: 100 mls/hr Documented by: Sodium Chloride (Sodium Chloride 0.9%) 1,000 mls @ 100 mls/hr IV .Q10H [facility] Last Admin: 09/28/19 00:34 Dose: Not Given Documented by: Latanoprost (Xalatan Ophth Drops) 1 gtt OS HS [facility] Last Admin: 09/27/19 20:00 Dose: 1 gtt Documented by: Lisinopril (Zestril) 40 mg PO QAM [facility] Last Admin: 09/27/19 09:22 Dose: 40 mg Documented by: Melatonin (Melatonin 3mg Tablet) 3 mg PO HSP PRN PRN Reason: Sleep Last Admin: 09/27/19 23:46 Dose: 3 mg Documented by: Metoprolol Succinate (Toprol Xl) 50 mg PO DAILY [facility] Last Admin: 09/27/19 09:22 Dose: 50 mg Documented by: Morphine Sulfate (Morphine) 1 - 2 mg IV Q2HP PRN; Protocol PRN Reason: Per Pain Protocol Last Admin: 09/26/19 19:26 Dose: 2 mg Documented by: Naloxone HCl (Narcan) 0.1 mg IV Q2MIN PRN PRN Reason: Opiate Reversal Nystatin (Nystatin) 500,000 units SSP QID [facility] Stop: 10/04/19 16:59 Last Admin: 09/27/19 20:48 Dose: 500,000 units Documented by: Ondansetron HCl (Zofran) 4 mg IV Q6HP PRN PRN Reason: Nausea And Vomiting Pantoprazole Sodium (Protonix) 40 mg IV DAILY [facility] Last Admin: 09/27/19 09:22 Dose: 40 mg Documented by: Dr. Pepper Merino ([employer] Formula) 2 dose PO AC [facility] Dr. Pepper Merino ([employer] Formula) 1 dose PO HS [facility] Last Admin: 09/27/19 20:48 Dose: 1 dose Documented by: Sodium Chloride (Saline Flush) 10 ml IV Q8 [facility] Last Admin: 09/28/19 05:31 Dose: Not Given Documented by: Tamsulosin HCl (Flomax) 0.4 mg PO [facility] Last Admin: 09/27/19 20:48 Dose: 0.4 mg Documented by: Tiotropium [place] (Spiriva) 18 mcg INH DAILY [facility] Last Admin: 09/27/19 09:24 Dose: Not Given Documented by: Medical - PN: A/P - Time Spent With Patient Total time spent is greater than 50% in coordination of care (as documented) at patient's floor/unit and/or counseling patient: - Narrative A/P Narrative: A: *Acute appendicitis. s/p Appy (09/22) *Leukocytosis/Fever: increasing *Post-op ileus: resolved *Urinary Retention: *PAD w/stenting to the iliac and SFA arteries in the past: home med clopidogrel. Patient states he now takes half tablet that is a blood thinner because he had been experiencing epistaxis. He may be taking 37.5 mg of clopidogrel daily. 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 *HTN: On lisinopril, metoprolol and amlodipine. P: Postop care per surgery -diet per surgery -Abx per ID, currently on Cefepime and Flagyl; further recs from ID, UA/BC. may repeat imaging if persistent/worsening leukocytosis resume antiplatetes when ok with surgery -Continue ezetimibe -Continue Spiriva, PRN nebs -cont home BP meds -rinaldi placed, started flow max, will remove rinaldi prior to d/c and check post- voids, if have to replace rinaldi then pt will need to f/u with Urology -ppx: heparin/ppi Medical - PN: Qual - VTE Deep Vein Thrombosis/Pulmonary Embolism Present on Admission: No
[2019-09-28 07:50] LABS: ALT/SGPT 10 U/l (0-40); AST/SGOT 18 U/l (0-37); Alkaline Phosphatase 56 U/L (39-117); Bilirubin,Direct < 0.2 mg/dL (0.0-0.3); Bilirubin,Total 0.5 mg/dL (0.0-1.0); Blood Urea Nitrogen 11 mg/dl (8-23); Calcium 8.6 mg/dl (8.6-10.4); Carbon Dioxide 17 mmol/L (22-30); Chloride 101 mmol/L (96-108); Globulin 2.9 gm/dL (2.2-3.7); Glomerular Filtration Rate 87; Glucose 104 mg/dL (70-105); Lactate Dehydrogenase 207 U/L (94-250); Phosphorous 1.9 mg/dL (2.7-4.5); Triglycerides 64 mg/dl (<150); Uric Acid 3.9 mg/dL (2.5-8.0)
[2019-09-28 08:51] LABS: Basophils # (Auto) 0.04 K/mcL (0.00-0.30); Basophils % (Auto) 0.2 % (0.0-2.0); Eosinophils # (Auto) 0.15 K/mcL (0.00-0.70); Eosinophils % (Auto) 0.9 % (0.0-7.0); Granulocytes % (Auto) 76.2 % (38.0-78.0); Hematocrit 30.9 % (40.1-51.0); Hemoglobin 10.6 g/dL (13.7-17.5); Lymphocytes # (Auto) 1.76 K/mcL (1.50-4.80); Lymphocytes % (Auto) 10.7 % (15.5-49.0); Mean Cell Volume 92.8 fL (80.0-100.0); Mean Corpuscular HGB Conc 34.3 g/dL (31.0-36.0); Mean Platelet Volume 9.1 fL (7.4-10.4); Monocytes # (Auto) 1.96 K/mcL (0.10-0.90); Platelet Count 363 K/mcL (140-440); RBC 3.33 M/mcL (4.63-6.08); Red Cell Distribution Width 12.2 % (11.5-14.5); WBC 16.4 K/mcL (4.50-11.00)
[2019-09-28] MEDS: EZETIMIBE 10 MG TABLET PO SCH (09:36)
[2019-09-28] MEDS: METOPROLOL SUCCINATE 50 MG TAB.XL.24H PO SCH (09:36)
[2019-09-28] MEDS: PANTOPRAZOLE 40 MG VIAL IV SCH (09:36)
[2019-09-28] MEDS: NYSTATIN 500,000 UNITS/5 ML ORAL.SUSP SSP SCH ×4 (09:36→21:19)
[2019-09-28] MEDS: LISINOPRIL 20 MG TABLET PO SCH (09:36)
[2019-09-28] MEDS: TIOTROPIUM BROMIDE 18 MCG INHALANT INH SCH (09:36)
[2019-09-28] MEDS: [UNRECOGNIZED DRUG - REMARK] PO SCH ×4 (09:36→21:20)
[2019-09-28] MEDS: HEPARIN 5,000 UNIT/ML VIAL SQ SCH ×2 (09:37→21:19)
[2019-09-28] MEDS: BRIMONIDINE OPHTH DROPS 1 GTT BOTTLE 5ML OU SCH (09:37)
[2019-09-28] MEDS: amLODIPine 10 MG TABLET PO SCH (09:37)
[2019-09-28] MEDS: CEFEPIME 2 GM VIAL IV SCH (09:57)
--- NOTE | 2019-09-28 14:27 | General Surgery Progress Note ---
Subjective Patient reports: feels better, pain is less, flatus, bowel movement, fever Narrative: Note initiated : 09/28/19 at 2:24 pm Service Date, if different from initiated Date: [] Patient: Heber Stewart 84 y/o M admitted on 09/21/19 for abdominal pain. Chief Complaint: [patient is clinically stable, but he did have temperature elevation to 101 yesterday. His last white blood count was 17,000. He is tolerating diet without difficulty, though he complains of the food. He is having regular bowel movements and passing flatus. He does not appear to be very motivated today. I discussed with him the plan for long-term prior to being discharged home. Discussed this with case management. They are pl anning for him to go to [facility] in [place].] Objective Temp Pulse Resp BP Pulse Ox 97.6 F 114 H 22 125/66 92 09/28/19 12:00 09/28/19 12:00 09/28/19 12:00 09/28/19 12:00 09/28/19 12:00 - Additional Data Intake & Output - Last 24 hours: Intake & Output 09/26/19 09/27/19 09/28/19 09/29/19 05:59 05:59 05:59 05:59 Intake Total 2550 2860 1700 100 Output Total 1150 1200 1975 800 Balance 1400 1660 -275 -700 Weight 113 lb 8 oz 111 lb 8 oz 115 lb - General physical appearance no distress, chronically ill - Eyes PERRL, normal ocular movement - ENT normal pinna, normal nares, normal mucosa, no hearing loss, no congestion - Neck no masses, no bruits, trachea midline, no lymphadenopathy, no venous distension - Respiratory other (decreased breath sounds bilaterally) - Cardiovascular Cardiovascular exam: Present: normal rate and rhythm, +S1, +S2. Absent: JVD, tachycardia - Abdomen distended (, mildly distended; good active bowel sounds; incisions look good) - Integumentary no rash, no growths, no abnormal pigmentation - Psychiatric oriented to time, oriented to person, oriented to place, speech is normal, memory intact - Labs 09/28/19 06:00 09/28/19 06:00 Diabetes panel 09/28/19 Range/Units 06:00 Sodium 135 (133-145) mmol/L Potassium 3.3 (3.3-5.1) mmol/L Chloride 101 (96-108) mmol/L Carbon Dioxide 17 L (22-30) mmol/L BUN 11 (8-23) mg/dl Creatinine 0.7 (0.7-1.2) mg/dl Glucose 104 (70-105) mg/dL Calcium 8.6 (8.6-10.4) mg/dl AST 18 (0-37) U/l ALT 10 (0-40) U/l Alkaline Phosphatase 56 (39-117) U/L Total Protein 5.9 (5.9-8.4) gm/dL Albumin 3.0 L (3.2-5.2) gm/dL Triglycerides 64 (<150) mg/dl Calcium panel 09/28/19 Range/Units 06:00 Calcium 8.6 (8.6-10.4) mg/dl Phosphorus 1.9 L (2.7-4.5) mg/dL Albumin 3.0 L (3.2-5.2) gm/dL Pituitary panel 09/28/19 Range/Units 06:00 Sodium 135 (133-145) mmol/L Potassium 3.3 (3.3-5.1) mmol/L Chloride 101 (96-108) mmol/L Carbon Dioxide 17 L (22-30) mmol/L BUN 11 (8-23) mg/dl Creatinine 0.7 (0.7-1.2) mg/dl Glucose 104 (70-105) mg/dL Calcium 8.6 (8.6-10.4) mg/dl Adrenal panel 09/28/19 Range/Units 06:00 Sodium 135 (133-145) mmol/L Potassium 3.3 (3.3-5.1) mmol/L Chloride 101 (96-108) mmol/L Carbon Dioxide 17 L (22-30) mmol/L BUN 11 (8-23) mg/dl Creatinine 0.7 (0.7-1.2) mg/dl Glucose 104 (70-105) mg/dL Calcium 8.6 (8.6-10.4) mg/dl Total Bilirubin 0.5 (0.0-1.0) mg/dL AST 18 (0-37) U/l ALT 10 (0-40) U/l Alkaline Phosphatase 56 (39-117) U/L Total Protein 5.9 (5.9-8.4) gm/dL Albumin 3.0 L (3.2-5.2) gm/dL Assessment and Plan (1) Appendicitis Status: Acute Assessment and plan: check CBC today Chest x-ray and two-view abdominal x-ray today. Tentative plan for transfer to long-term facility tomorrow Current Visit: Yes - Time Spent With Patient Total time spent is greater than 50% in coordination of care (as documented) at patient's floor/unit and/or counseling patient:
[2019-09-28 16:05] LABS: Basophils # (Auto) 0.04 K/mcL (0.00-0.30); Basophils % (Auto) 0.3 % (0.0-2.0); Eosinophils # (Auto) 0.16 K/mcL (0.00-0.70); Eosinophils % (Auto) 1.1 % (0.0-7.0); Granulocytes % (Auto) 74.4 % (38.0-78.0); Hematocrit 32.5 % (40.1-51.0); Hemoglobin 11.2 g/dL (13.7-17.5); Lymphocytes # (Auto) 1.77 K/mcL (1.50-4.80); Lymphocytes % (Auto) 12.3 % (15.5-49.0); Mean Cell Volume 90.8 fL (80.0-100.0); Mean Corpuscular HGB Conc 34.5 g/dL (31.0-36.0); Mean Platelet Volume 9.1 fL (7.4-10.4); Monocytes # (Auto) 1.71 K/mcL (0.10-0.90); Monocytes % (Auto) 11.9 % (1.0-12.0); Platelet Count 394 K/mcL (140-440); RBC 3.58 M/mcL (4.63-6.08); Red Cell Distribution Width 12.2 % (11.5-14.5); WBC 14.4 K/mcL (4.50-11.00)
--- NOTE | 2019-09-28 16:09 | Infectious Disease Prog Note ---
Subjective Patient information: Note initiated : 09/28/19 at 4:03 pm Service Date, if different from initiated Date: [] Patient: Heber Stewart 84 y/o M admitted on 09/21/19 for abdominal pain. Chief Complaint: [] Interval history: Pt doing better today. Feels his belly pain and bladder discomfort is much better. Denied any fever, chills, n/v/diarrhea. No BM today in am. Objective Objective Narrative: ao x 3, in nad no thrush chest cta s1 s2 normal bs ++, non tender except for deep palpation, no rebound or guarding, joce at sites of laparoscope port entry sites are secured and clean without any drainage or redness - Vital Signs Vital signs: Vital Signs Temp Pulse Resp BP Pulse Ox 09/28/19 12:00 36.4 C 114 H 22 125/66 92 09/28/19 08:00 36.6 C 98 H 18 105/58 93 09/28/19 03:33 36.7 C 99 H 24 H 114/65 93 09/27/19 23:33 38.5 C H 60 36 H 128/65 97 09/27/19 18:39 36.4 C 69 26 H 121/74 97 Intake and Output 09/28/19 09/28/19 09/28/19 05:59 13:59 21:59 Intake Total 100 100 Output Total 1275 800 Balance -1175 100 -800 Intake: IV 100 Oral 100 Output: Urine Catheter Amount 1275 800 Other: Urine Appearance Clear Clear Straight Clear Urine Color Bright Yellow Bright Yellow Dark Yellow Straight Bright Yellow Urine Odor Normal Normal Strong Straight Normal Intake & Output: Intake & Output 09/28/19 09/28/19 09/28/19 05:59 13:59 21:59 Intake Total 100 100 Output Total 1275 800 Balance -1175 100 -800 Intake: IV 100 Oral 100 Output: Urine Catheter Amount 1275 800 Other: Urine Appearance Clear Clear Straight Clear Urine Color Bright Yellow Bright Yellow Dark Yellow Straight Bright Yellow Urine Odor Normal Normal Strong Straight Normal - Lab 09/28/19 15:04 09/28/19 06:00 Most recent lab results Calcium 8.6 mg/dl (8.6-10.4) 09/28/19 06:00 Phosphorus 1.9 mg/dL (2.7-4.5) L 09/28/19 06:00 Magnesium 1.7 mg/dL (1.6-2.5) 09/28/19 06:00 Microbiology 09/27/19 10:10 Blood Blood Culture - Preliminary 09/27/19 10:18 Blood Blood Culture - Preliminary 09/27/19 10:13 Urine - Rinaldi Urine Culture - Preliminary Medications Active Medications: Acetaminophen (Tylenol) 1,000 mg PO Q8HP PRN; Protocol PRN Reason: Pain Last Admin: 09/27/19 23:46 Dose: 1,000 mg Documented by: Admin: 09/26/19 08:32 Dose: 1,000 mg Documented by: Admin: 09/25/19 20:25 Dose: 1,000 mg Documented by: Admin: 09/25/19 12:47 Dose: 1,000 mg Documented by: RIN Albuterol Sulfate (Ventolin) 2.5 mg NEB Q4HP PRN PRN Reason: Shortness Of Breath Albuterol/Ipratropium (Duoneb) 3 ml NEB Q4HP PRN PRN Reason: Shortness Of Breath Amlodipine Besylate (Norvasc) 10 mg PO QAM [facility] Last Admin: 09/28/19 09:37 Dose: 10 mg Documented by: Admin: 09/27/19 09:22 Dose: 10 mg Documented by: Admin: 09/26/19 08:32 Dose: 10 mg Documented by: Admin: 09/25/19 09:03 Dose: 10 mg Documented by: Admin: 09/24/19 08:23 Dose: 10 mg Documented by: Admin: 09/23/19 09:16 Dose: 10 mg Documented by: Admin: 09/22/19 08:45 Dose: Not Given Documented by: [id number] Non-Admin Reason: NPO Artificial Tears (Refresh Celluvisc) 1 each OU QIDP PRN PRN Reason: Dry Eye(s) Benzocaine (Cetacaine) 1 spray TOPICAL PRN PRN PRN Reason: Sore Throat Brimonidine Tartrate (Alphagan P Ophth Drops) 1 gtt OU DAILY [facility] Last Admin: 09/28/19 09:37 Dose: 1 gtt Documented by: Admin: 09/27/19 09:23 Dose: 1 gtt Documented by: Admin: 09/26/19 10:58 Dose: 1 gtt Documented by: Admin: 09/25/19 08:56 Dose: Not Given Documented by: RIN Non-Admin Reason: Unavailable Admin: 09/24/19 08:21 Dose: Not Given Documented by: FERNANDO Non-Admin Reason: Unavailable Admin: 09/23/19 09:19 Dose: Not Given Documented by: ISAIAH Non-Admin Reason: Unavailable Admin: 09/22/19 08:44 Dose: Not Given Documented by: ERMIAS Non-Admin Reason: Unavailable Cefepime HCl (Maxipime) 2 gm IV Q12H ARACELI; Protocol Last Admin: 09/28/19 09:57 Dose: 2 gm Documented by: Admin: 09/27/19 20:47 Dose: 2 gm Documented by: Admin: 09/27/19 09:27 Dose: 2 gm Documented by: Admin: 09/26/19 20:36 Dose: 2 gm Documented by: Admin: 09/26/19 08:41 Dose: 2 gm Documented by: Admin: 09/25/19 20:21 Dose: 2 gm Documented by: Admin: 09/25/19 09:04 Dose: 2 gm Documented by: Admin: 09/24/19 21:22 Dose: 2 gm Documented by: EVELIA Diphenhydramine HCl (Benadryl) 25 mg PO HSP PRN PRN Reason: Insomnia Last Admin: 09/27/19 20:48 Dose: 25 mg Documented by: ALEAH Ezetimibe (Zetia) 10 mg PO DAILY [facility] Last Admin: 09/28/19 09:36 Dose: 10 mg Documented by: Admin: 09/27/19 09:22 Dose: 10 mg Documented by: Admin: 09/26/19 08:32 Dose: 10 mg Documented by: Admin: 09/25/19 09:03 Dose: 10 mg Documented by: Admin: 09/24/19 08:22 Dose: 10 mg Documented by: Admin: 09/23/19 09:16 Dose: 10 mg Documented by: Admin: 09/22/19 08:45 Dose: Not Given Documented by: ERMIAS Non-Admin Reason: NPO Heparin Sodium (Porcine) (Heparin) 5,000 unit SQ Q12 [facility] Last Admin: 09/28/19 09:37 Dose: 5,000 unit Documented by: Admin: 09/27/19 20:56 Dose: 5,000 unit Documented by: Admin: 09/27/19 10:34 Dose: 5,000 unit Documented by: FERNANDO Metronidazole (Flagyl) 500 mg in 100 mls @ 100 mls/hr IV Q8H ARACELI; Protocol Last Admin: 09/28/19 13:14 Dose: 100 mls/hr Documented by: Infusion: 09/28/19 06:30 Dose: 100 mls/hr Documented by: Admin: 09/28/19 05:29 Dose: 100 mls/hr Documented by: Infusion: 09/27/19 21:58 Dose: 100 mls/hr Documented by: Admin: 09/27/19 20:58 Dose: 100 mls/hr Documented by: Infusion: 09/27/19 14:33 Dose: 100 mls/hr Documented by: Admin: 09/27/19 13:33 Dose: 100 mls/hr Documented by: Infusion: 09/27/19 09:24 Dose: 100 mls/hr Documented by: Admin: 09/27/19 05:13 Dose: 100 mls/hr Documented by: Infusion: 09/26/19 22:23 Dose: 100 mls/hr Documented by: Admin: 09/26/19 21:23 Dose: 100 mls/hr Documented by: Infusion: 09/26/19 14:38 Dose: 100 mls/hr Documented by: Admin: 09/26/19 13:38 Dose: 100 mls/hr Documented by: Infusion: 09/26/19 07:00 Dose: 100 mls/hr Documented by: Admin: 09/26/19 06:00 Dose: 100 mls/hr Documented by: Infusion: 09/25/19 23:13 Dose: 100 mls/hr Documented by: Admin: 09/25/19 22:13 Dose: 100 mls/hr Documented by: Infusion: 09/25/19 15:18 Dose: 100 mls/hr Documented by: Admin: 09/25/19 14:18 Dose: 100 mls/hr Documented by: Infusion: 09/25/19 07:19 Dose: 0 mls/hr Documented by: Admin: 09/25/19 06:09 Dose: 100 mls/hr Documented by: Infusion: 09/24/19 23:05 Dose: 100 mls/hr Documented by: Admin: 09/24/19 22:05 Dose: 100 mls/hr Documented by: Infusion: 09/24/19 14:05 Dose: 100 mls/hr Documented by: Admin: 09/24/19 13:03 Dose: 100 mls/hr Documented by: FERNANDO Sodium Chloride (Sodium Chloride 0.9%) 1,000 mls @ 100 mls/hr IV .Q10H [facility]ACELI Last Admin: 09/28/19 15:27 Dose: Not Given Documented by: CHLOÉ Non-Admin Reason: Saline locked tolerating PO well. Admin: 09/28/19 00:34 Dose: Not Given Documented by: ALEAH Non-Admin Reason: Bag Still Infusing Admin: 09/27/19 16:22 Dose: 100 mls/hr Documented by: Infusion: 09/27/19 14:31 Dose: 100 mls/hr Documented by: Admin: 09/27/19 13:33 Dose: Not Given Documented by: FERNANDO Non-Admin Reason: Continuous IV Admin: 09/27/19 04:31 Dose: 100 mls/hr Documented by: Infusion: 09/27/19 03:39 Dose: 100 mls/hr Documented by: Admin: 09/26/19 17:39 Dose: 100 mls/hr Documented by: Admin: 09/26/19 13:36 Dose: Not Given Documented by: SEJAL Non-Admin Reason: sl Infusion: 09/26/19 06:22 Dose: 100 mls/hr Documented by: Admin: 09/25/19 20:22 Dose: 100 mls/hr Documented by: Admin: 09/25/19 12:31 Dose: Not Given Documented by: RIN Non-Admin Reason: Duplicate Latanoprost (Xalatan Ophth Drops) 1 gtt OS HS [facility] Last Admin: 09/27/19 20:00 Dose: 1 gtt Documented by: Admin: 09/26/19 20:38 Dose: 1 gtt Documented by: Admin: 09/25/19 20:21 Dose: 1 gtt Documented by: Admin: 09/24/19 21:22 Dose: Not Given Documented by: EVELIA Non-Admin Reason: Unavailable Admin: 09/23/19 20:38 Dose: Not Given Documented by: TOMEKA Non-Admin Reason: Unavailable Admin: 09/22/19 21:07 Dose: Not Given Documented by: ALEAH Non-Admin Reason: Unavailable Admin: 09/21/19 21:25 Dose: Not Given Documented by: TOMEKA Non-Admin Reason: Unavailable Lisinopril (Zestril) 40 mg PO QAM [facility] Last Admin: 09/28/19 09:36 Dose: 40 mg Documented by: Admin: 09/27/19 09:22 Dose: 40 mg Documented by: Admin: 09/26/19 08:32 Dose: 40 mg Documented by: Admin: 09/25/19 09:03 Dose: 40 mg Documented by: Admin: 09/24/19 08:22 Dose: 40 mg Documented by: Admin: 09/23/19 09:16 Dose: 40 mg Documented by: Admin: 09/22/19 08:45 Dose: Not Given Documented by: [email or web address] Non-Admin Reason: NPO Melatonin (Melatonin 3mg Tablet) 3 mg PO HSP PRN PRN Reason: Sleep Last Admin: 09/27/19 23:46 Dose: 3 mg Documented by: Admin: 09/26/19 20:37 Dose: 3 mg Documented by: ALEAH Metoprolol Succinate (Toprol Xl) 50 mg PO DAILY [facility] Last Admin: 09/28/19 09:36 Dose: 50 mg Documented by: Admin: 09/27/19 09:22 Dose: 50 mg Documented by: Admin: 09/26/19 08:32 Dose: 50 mg Documented by: Admin: 09/25/19 09:03 Dose: 50 mg Documented by: Admin: 09/24/19 08:22 Dose: 50 mg Documented by: Admin: 09/23/19 09:16 Dose: 50 mg Documented by: Admin: 09/22/19 13:37 Dose: 50 mg Documented by: [email or web address] Comments: GAVE LATE POST-OPERATIVELY R/T SEDATION Morphine Sulfate (Morphine) 1 - 2 mg IV Q2HP PRN; Protocol PRN Reason: Per Pain Protocol Last Admin: 09/26/19 19:26 Dose: 2 mg Documented by: ALEAH Comments: 06/01 Admin: 09/25/19 14:16 Dose: 2 mg Documented by: Admin: 09/25/19 10:31 Dose: 2 mg Documented by: Admin: 09/25/19 06:15 Dose: 2 mg Documented by: Admin: 09/24/19 15:13 Dose: 1 mg Documented by: FERNANDO Naloxone HCl (Narcan) 0.1 mg IV Q2MIN PRN PRN Reason: Opiate Reversal Nystatin (Nystatin) 500,000 units SSP QID [facility] Stop: 10/04/19 16:59 Last Admin: 09/28/19 12:47 Dose: 500,000 units Documented by: Admin: 09/28/19 09:36 Dose: 500,000 units Documented by: Admin: 09/27/19 20:48 Dose: 500,000 units Documented by: Admin: 09/27/19 16:23 Dose: 500,000 units Documented by: FERNANDO Ondansetron HCl (Zofran) 4 mg IV Q6HP PRN PRN Reason: Nausea And Vomiting Pantoprazole Sodium (Protonix) 40 mg IV DAILY [facility] Last Admin: 09/28/19 09:36 Dose: 40 mg Documented by: Admin: 09/27/19 09:22 Dose: 40 mg Documented by: Admin: 09/26/19 08:31 Dose: 40 mg Documented by: Admin: 09/25/19 09:04 Dose: 40 mg Documented by: Admin: 09/24/19 08:22 Dose: 40 mg Documented by: Admin: 09/23/19 09:16 Dose: 40 mg Documented by: Admin: 09/22/19 08:51 Dose: 40 mg Documented by: [id number] Admin: 09/21/19 17:10 Dose: 40 mg Documented by: RIN [place] (OpenHomes) 2 dose PO AC [facility] Last Admin: 09/28/19 11:33 Dose: Not Given Documented by: CHLOÉ Non-Admin Reason: Patient Refused Admin: 09/28/19 09:36 Dose: 2 dose Documented by: CHOLÉ Merino ([employer]) 1 dose PO HS [facility] Last Admin: 09/27/19 20:48 Dose: 1 dose Documented by: ALEAH Sodium Chloride (Saline Flush) 10 ml IV Q8 [facility] Last Admin: 09/28/19 13:16 Dose: Not Given Documented by: FERNANDO Non-Mary Reason: Continuous IV Admin: 09/28/19 05:31 Dose: Not Given Documented by: ALEAH Non-Mary Reason: Bag Still Infusing Admin: 09/27/19 21:19 Dose: Not Given Documented by: ALEAH Non-Mary Reason: Bag Still Infusing Admin: 09/27/19 14:04 Dose: Not Given Documented by: FERNANDO Non-Mary Reason: Continuous IV Admin: 09/27/19 05:11 Dose: Not Given Documented by: ALEAH Non-Mary Reason: Bag Still Infusing Admin: 09/26/19 21:29 Dose: Not Given Documented by: ALEAH Non-Mary Reason: Bag Still Infusing Admin: 09/26/19 13:38 Dose: 10 ml Documented by: Admin: 09/26/19 06:00 Dose: Not Given Documented by: EVELIA Non-Mary Reason: Continuous IV Admin: 09/25/19 20:22 Dose: Not Given Documented by: EVELIA Non-Mary Reason: Continuous IV Admin: 09/25/19 14:18 Dose: 10 ml Documented by: RIN Tamsulosin HCl (Flomax) 0.4 mg PO [facility] Last Admin: 09/27/19 20:48 Dose: 0.4 mg Documented by: ALEAH Tiotropium [place] (Spiriva) 18 mcg INH DAILY [facility] Last Admin: 09/28/19 09:36 Dose: Not Given Documented by: CHLOÉ Non-Admin Reason: Unavailable Admin: 09/27/19 09:24 Dose: Not Given Documented by: FERNANDO Non-Admin Reason: Unavailable Admin: 09/26/19 10:58 Dose: Not Given Documented by: SEJAL Non-Admin Reason: Unavailable Admin: 09/25/19 10:31 Dose: Not Given Documented by: RIN Non-Admin Reason: Unavailable Admin: 09/24/19 08:22 Dose: Not Given Documented by: AHOOD Non-Admin Reason: Unavailable Admin: 09/23/19 09:25 Dose: Not Given Documented by: [email or web address] Non-Admin Reason: Unavailable Admin: 09/22/19 08:45 Dose: Not Given Documented by: [id number] Non-Admin Reason: Unavailable Assessment and Plan - Narrative A/P Narrative: A: 1. Acute appendicitis with small perforation: POD 7 after laparoscopic appendectomy - CT done 09/24 r/o any intra-abd fluid collection, perforation. Showed atypical ileus with a transition point at splenic flexure - clinical exam suggests marked improvement in abdominal tenderness and peritoneal signs 2. Postoperative ileus: resolved. bowel sounds +, has soft BMs 3. Leucocytosis: improving - WBC 16.4K in am and 14.4 in pm today <----- 17.9k today [78.5% PMNs] <--------15.8k yesterday <----------14.4k on 09/25 - multifactorial: postoperative, localized peritonitis, r/o any UTI or bacteremia 4. BPH: had multiple attempts for straight cath. Could have led to bacterial translocation from tract into systemic circulation - on Tamsulosin, rinaldi 5. Oral thrush: on Nystatin s/s, day 2/7 Recommendations: - Stop IV Cefepime and IV Metronidazole, day 5 - Start PO Metronidazole 500 mg q8 hrs and PO Levofloxacin 750 mg q24 [pt's Creatinine Clearance is 59]. will plan for another 5-day course (stop date of 10/03/2019) - will follow blood Cx and urine Cx. If positive, will make changes to antibiotics. - continue PO Nystatin 5 ml swish and spit qid for 6 days (stop date of 10/03/2019) Plan d/w Dr. Delfino Vaca MD Infectious diseases
[2019-09-28] MEDS: LEVOFLOXACIN 750 MG TABLET PO SCH (17:32)
--- NOTE | 2019-09-28 19:45 | XRay Report ---
HISTORY: Respiratory distress, evaluate for atelectasis or pulmonary infiltrate FINDINGS: patient has moderate pulmonary fibrosis throughout both lungs. Lungs are hyperinflated. The patient has had prior left upper lobectomy performed. There are also calcified pleural plaques bilaterally, suggesting prior asbestos exposure. No acute infiltrate is seen. There is no apparent pleural effusion or congestive heart failure. The heart size is normal. Large amount calcified plaque is present in the aortic arch, subclavian and axillary arteries. There has been no significant change since 09/21/19. IMPRESSION: Stable COPD with pulmonary fibrosis. No acute abnormality has developed Interpreted and Authenticated by: Sundar Franks 09/28/19
--- NOTE | 2019-09-28 19:47 | XRay Report ---
HISTORY: Follow-up ileus FINDINGS: There are several loops of mildly moderately dilated small bowel throughout the abdomen and pelvis. These have diminished in caliber since prior CT done on 09/24/19. No free intra-abdominal air is present. The colon is nondistended. There is dense vascular calcification overlying the stomach and large amount calcified plaque in the aorta and iliac arteries. IMPRESSION: Improving ileus or incomplete small bowel obstruction Interpreted and Authenticated by: Sundar Franks 09/28/19
[2019-09-28] MEDS: TAMSULOSIN 0.4 MG CAPSULE PO SCH (21:20)
[2019-09-28] MEDS: LATANOPROST OPHTH DROPS 2.5ML BOTTLE OS SCH (21:20)
[2019-09-28] MEDS: metroNIDAZOLE 500 MG TABLET PO SCH (21:50)
[2019-09-29] MEDS: 0.9 % SODIUM CHLORIDE 10 ML SYRINGE IV SCH (05:17)
[2019-09-29] MEDS: 0.9 % SODIUM CHLORIDE 1,000 ML IV SCH (05:17)
[2019-09-29] MEDS: metroNIDAZOLE 500 MG TABLET PO SCH (05:53)
[2019-09-29 06:28] LABS: Basophils # (Auto) 0.04 K/mcL (0.00-0.30); Basophils % (Auto) 0.2 % (0.0-2.0); Eosinophils # (Auto) 0.08 K/mcL (0.00-0.70); Eosinophils % (Auto) 0.5 % (0.0-7.0); Granulocytes % (Auto) 77.8 % (38.0-78.0); Hematocrit 32.2 % (40.1-51.0); Hemoglobin 10.9 g/dL (13.7-17.5); Lymphocytes # (Auto) 1.79 K/mcL (1.50-4.80); Lymphocytes % (Auto) 11.1 % (15.5-49.0); Mean Corpuscular HGB Conc 33.9 g/dL (31.0-36.0); Mean Platelet Volume 8.9 fL (7.4-10.4); Monocytes # (Auto) 1.69 K/mcL (0.10-0.90); Monocytes % (Auto) 10.4 % (1.0-12.0); Platelet Count 405 K/mcL (140-440); Red Cell Distribution Width 12.2 % (11.5-14.5); WBC 16.2 K/mcL (4.50-11.00)
--- NOTE | 2019-09-29 07:11 | Internal Med Progress Note ---
Medical - PN: Subj Patient information: Note initiated : 09/29/19 at 7:09 am Service Date, if different from initiated Date: [] Patient: Heber Stewart a 84 y/o M admitted on 09/21/19 for abdominal pain. Chief Complaint: [] Interval history: 09/21 Mr. Stewart is a 84 year old M with a history of COPD, intermittently oxygen requiring, asbestosis, left upper lobectomy, hypertension, peripheral arterial disease who presents to the emergency department abdominal pain. Patient states he was up early this morning, which is his usual and ate breakfast about 4. At 9 AM, he is preparing a sandwich for his next meal when he developed severe stabbing acute onset of right lower quadrant pain which doubled him over. He tried eating his sandwich, and finished about half of it but had to stop because of pain. Did not seem to worsen the pain, but it did not ameliorated either. Patient presents to the emergency department because of the pain, CT scan reveals simple appendicitis. Patient denies any fevers or chills. He had nausea with no emesis earlier this morning. He has had constipation which is been ongoing for the last several months. He did have a normal bowel movement yesterday. Patient was evaluated by Dr. Judd for surgery. Patient is currently on clopidogrel for peripheral arterial disease as multiple medical comorbidities. After discussion, decision was made to treat with antibiotics allowing for an elective appendectomy in the future. 09/22/2019 White count went from 15.5-16.5, patient still complaining of significant right lower quadrant pain this morning. He went to the OR for laparoscopic appendectomy which he tolerated well. This afternoon no specific complaints, quite pleased that his lower abdominal pain has resolved. 09/23 Patient doing well this morning. Wishes he could have more than clear liquid diet. Hoping to go home today. No longer on oxygen, was maintaining good sats on room air (oftentimes only wears it as needed at home). White count about the same. 09/27 Reconsulted as patient is white blood cell count is increasing and he developed some urinary retention. Infectious disease is following. Patient finally slept decent last night. has chronic dyspnea. 09/28 Patient states poor sleep last night. Seems to be frustrated with being in the hospital. Pending repeat laboratory. May need eventual repeat CT abdomen pelvis if leukocytosis persists or increases. Rinaldi in place. 09/29 Complains of sleep and wanting to go be with his at home. Leukocytosis persistent but afebrile overnight. ID following. Chest x-ray and urinalysis unremarkable Review of Systems: denies headache/fever/chills/nausea/vomiting/chest or abdominal pain/cough/diarrhea. Otherwise see above. - Constitutional Vitals: Vital Signs Temp Pulse Resp BP Pulse Ox 98.3 F 110 H 24 H 135/78 92 09/29/19 04:44 09/29/19 04:44 09/29/19 04:44 09/29/19 04:44 09/29/19 04:44 Period Temp Pulse Resp BP Sys/Batista Pulse Ox Last 24 Hr 97.6 F-99.3 F 98-114 18-28 105-135/58-78 90-93 Intake and Output 09/28/19 09/29/19 09/29/19 21:59 05:59 13:59 Intake Total 440 200 Output Total 800 1350 Balance -360 -1150 Weight 52.39 kg Intake & Output: Intake & Output 09/28/19 09/29/19 09/29/19 21:59 05:59 13:59 Intake Total 440 200 Output Total 800 1350 Balance -360 -1150 Weight 52.39 kg Intake: Oral 440 200 Output: Urine Catheter Amount 800 Void Amount 1350 Other: Meal Dinner Percent of Meal Consumed 100% Feeding Ability Independent Urine Appearance Clear Clear Uretheral (Rinaldi) Clear Urine Color Bright Yellow Dark Yellow Uretheral (Rinaldi) Bright Yellow Urine Odor Strong Strong Uretheral (Rinaldi) Strong Exam: General: Alert, Awake, No acute Distress Eyes/N/T: EOMI, Head/Neck: neck supple, CV: RRR, No murmurs, Pulm: Clear b/l, no wheezing/rhonchi/rales Abd: soft, +BS x4 Ext: no clubbing/cyanosis/edema Neuro: Alert, no focal deficits, moves all extremities, Skin: warm/dry Medical - PN: Obj Da - Labs CBC & Chem 7: 09/29/19 05:30 09/28/19 06:00 Labs: Abnormal Lab Results 09/29/19 09/28/19 09/28/19 05:30 15:04 06:00 WBC 16.2 H 14.4 H 16.4 H RBC 3.50 L 3.58 L 3.33 L Hgb 10.9 L 11.2 L 10.6 L Hct 32.2 L 32.5 L 30.9 L Gran % Lymph % (Auto) 11.1 L 12.3 L 10.7 L Gran # 12.58 H 10.73 H 12.48 H Mckenzie # (Auto) 1.69 H 1.71 H 1.96 H Lymphocytes % Sodium Chloride Carbon Dioxide Anion Gap Glucose Phosphorus Albumin Urine Protein Urine Ketones Urine Occult Blood Urine RBC Urine WBC Amorphous Crystals Hyaline Casts 09/28/19 09/27/19 09/27/19 06:00 10:12 06:26 WBC RBC Hgb Hct Gran % Lymph % (Auto) Gran # Mckenzie # (Auto) Lymphocytes % 9 L Sodium Chloride Carbon Dioxide 17 L Anion Gap 17.0 H Glucose Phosphorus 1.9 L Albumin 3.0 L Urine Protein 30 A Urine Ketones 80 A Urine Occult Blood 0.2 A Urine RBC 23 H Urine WBC 7 H Amorphous Crystals Few A Hyaline Casts 9 H 09/27/19 09/27/19 09/26/19 06:26 06:26 05:55 WBC 17.9 H RBC 3.59 L Hgb 11.5 L Hct 33.7 L Gran % 78.5 H Lymph % (Auto) 10.0 L Gran # 14.09 H Mckenzie # (Auto) 1.88 H Lymphocytes % Sodium 130 L Chloride 94 L Carbon Dioxide 16 L 20 L Anion Gap 19.0 H Glucose 64 L Phosphorus Albumin 3.0 L Urine Protein Urine Ketones Urine Occult Blood Urine RBC Urine WBC Amorphous Crystals Hyaline Casts Meds: Medications Acetaminophen (Tylenol) 1,000 mg PO Q8HP PRN; Protocol PRN Reason: Pain Last Admin: 09/27/19 23:46 Dose: 1,000 mg Documented by: Albuterol Sulfate (Ventolin) 2.5 mg NEB Q4HP PRN PRN Reason: Shortness Of Breath Albuterol/Ipratropium (Duoneb) 3 ml NEB Q4HP PRN PRN Reason: Shortness Of Breath Amlodipine Besylate (Norvasc) 10 mg PO QAM [facility] Last Admin: 09/28/19 09:37 Dose: 10 mg Documented by: Artificial Tears (Refresh Celluvisc) 1 each OU QIDP PRN PRN Reason: Dry Eye(s) Benzocaine (Cetacaine) 1 spray TOPICAL PRN PRN PRN Reason: Sore Throat Brimonidine Tartrate (Alphagan P Ophth Drops) 1 gtt OU DAILY [facility] Last Admin: 09/28/19 09:37 Dose: 1 gtt Documented by: Diphenhydramine HCl (Benadryl) 25 mg PO HSP PRN PRN Reason: Insomnia Last Admin: 09/27/19 20:48 Dose: 25 mg Documented by: Ezetimibe (Zetia) 10 mg PO DAILY [facility] Last Admin: 09/28/19 09:36 Dose: 10 mg Documented by: Heparin Sodium (Porcine) (Heparin) 5,000 unit SQ Q12 [facility] Last Admin: 09/28/19 21:19 Dose: 5,000 unit Documented by: Sodium Chloride (Sodium Chloride 0.9%) 1,000 mls @ 100 mls/hr IV .Q10H [facility] Last Admin: 09/29/19 05:17 Dose: Not Given Documented by: Latanoprost (Xalatan Ophth Drops) 1 gtt OS HS [facility] Last Admin: 09/28/19 21:20 Dose: 1 gtt Documented by: Levofloxacin (Levaquin) 750 mg PO DAILY [facility]; Protocol Last Admin: 09/28/19 17:32 Dose: 750 mg Documented by: Lisinopril (Zestril) 40 mg PO QAM [facility] Last Admin: 09/28/19 09:36 Dose: 40 mg Documented by: Melatonin (Melatonin 3mg Tablet) 3 mg PO HSP PRN PRN Reason: Sleep Last Admin: 09/27/19 23:46 Dose: 3 mg Documented by: Metoprolol Succinate (Toprol Xl) 50 mg PO DAILY [facility] Last Admin: 09/28/19 09:36 Dose: 50 mg Documented by: Metronidazole (Flagyl) 500 mg PO Q8 [facility]; Protocol Last Admin: 09/29/19 05:53 Dose: 500 mg Documented by: Morphine Sulfate (Morphine) 1 - 2 mg IV Q2HP PRN; Protocol PRN Reason: Per Pain Protocol Last Admin: 09/26/19 19:26 Dose: 2 mg Documented by: Naloxone HCl (Narcan) 0.1 mg IV Q2MIN PRN PRN Reason: Opiate Reversal Nystatin (Nystatin) 500,000 units SSP QID [facility] Stop: 10/04/19 16:59 Last Admin: 09/28/19 21:19 Dose: 500,000 units Documented by: Ondansetron HCl (Zofran) 4 mg IV Q6HP PRN PRN Reason: Nausea And Vomiting Pantoprazole Sodium (Protonix) 40 mg IV DAILY [facility] Last Admin: 09/28/19 09:36 Dose: 40 mg Documented by: Dr. Pepper Merino ([employer]) 2 dose PO AC [facility] Last Admin: 09/28/19 17:32 Dose: 2 dose Documented by: Dr. Pepper Merino ([employer]) 1 dose PO HS [facility] Last Admin: 09/28/19 21:20 Dose: 1 dose Documented by: Sodium Chloride (Saline Flush) 10 ml IV Q8 [facility] Last Admin: 09/29/19 05:17 Dose: Not Given Documented by: Tamsulosin HCl (Flomax) 0.4 mg PO [facility] Last Admin: 09/28/19 21:20 Dose: 0.4 mg Documented by: Tiotropium [place] (Spiriva) 18 mcg INH DAILY [facility] Last Admin: 09/28/19 09:36 Dose: Not Given Documented by: Medical - PN: A/P - Time Spent With Patient Total time spent is greater than 50% in coordination of care (as documented) at patient's floor/unit and/or counseling patient: - Narrative A/P Narrative: A: *Acute appendicitis. s/p Appy (09/22) *Leukocytosis/Fever: no fever o/n, but persistent leukocytosis. UA/CXR unremarkable *Post-op ileus: resolved *Urinary Retention: was unsuccessful after removal and required replacement of rinaldi *PAD w/stenting to the iliac and SFA arteries in the past: home med clopidogrel. Patient states he now takes half tablet that is a blood thinner because he had been experiencing epistaxis. He may be taking 37.5 mg of clopidogrel daily. 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 *HTN: On lisinopril, metoprolol and amlodipine. P: Postop care per surgery -diet per surgery -Abx per ID, currently on Cefepime and Flagyl; further recs from ID resume antiplatetes when ok with surgery -Continue ezetimibe -Continue Spiriva, PRN nebs -cont home BP meds -rinaldi in place f/u with Urology, cont flomax -ppx: heparin/ppi Medical - PN: Qual - VTE Deep Vein Thrombosis/Pulmonary Embolism Present on Admission: No
[2019-09-29] MEDS: LEVOFLOXACIN 750 MG TABLET PO SCH (08:46)
[2019-09-29] MEDS: PANTOPRAZOLE 40 MG VIAL IV SCH (08:46)
[2019-09-29] MEDS: METOPROLOL SUCCINATE 50 MG TAB.XL.24H PO SCH (08:46)
[2019-09-29] MEDS: EZETIMIBE 10 MG TABLET PO SCH (08:46)
[2019-09-29] MEDS: LISINOPRIL 20 MG TABLET PO SCH (08:46)
[2019-09-29] MEDS: amLODIPine 10 MG TABLET PO SCH (08:47)
[2019-09-29] MEDS: BRIMONIDINE OPHTH DROPS 1 GTT BOTTLE 5ML OU SCH (08:47)
[2019-09-29] MEDS: [UNRECOGNIZED DRUG - REMARK] PO SCH ×2 (08:47→11:21)
[2019-09-29] MEDS: HEPARIN 5,000 UNIT/ML VIAL SQ SCH (08:47)
[2019-09-29] MEDS: TIOTROPIUM BROMIDE 18 MCG INHALANT INH SCH (08:48)
[2019-09-29] MEDS: NYSTATIN 500,000 UNITS/5 ML ORAL.SUSP SSP SCH (08:48)
--- NOTE | 2019-09-29 08:48 | XRay Report ---
HISTORY: Atelectasis or pulmonary infiltrate FINDINGS: There are several calcified pleural plaques in the mid and lower thorax bilaterally. These are most apparent in the left lower thorax. The plaques partially obscure the underlying lung parenchyma and simulate infiltrates. However, this is a chronic stable finding, unchanged from prior chest CT on 06/08/18. Patient does have underlying emphysema and pulmonary fibrosis. The left upper thorax is distorted following prior left upper lobectomy. Comparison with chest x-ray done yesterday shows no change to suggest new zone of pneumonia or atelectasis. The heart size remains normal. IMPRESSION: Stable COPD, pulmonary fibrosis and pleural plaques. No change to suggest pneumonia or new onset atelectasis Interpreted and Authenticated by: Sundar Franks 09/29/19
[2019-09-29] MEDS ORDERED: methylPREDNISolone SOD SUCC 125 MG/2 ML VIAL IV STA (12:44)
--- NOTE | 2019-09-29 12:53 | Discharge Summary ---
Providers - Providers Patient information: Note initiated : 09/29/19 at 12:47 pm Service Date, if different from initiated Date: [] Patient: Heber Stewart 84 y/o M admitted on 09/21/19 for abdominal pain. Chief Complaint: [] Date of admission: 09/21/19 Discharge date: 09/29/19 Attending physician: Gino Judd Hospitalization Hospital Course: 84-year-old male who presented on 21 September with right lower quadrant pain, nausea. Seen in the emergency room and was noted to have appendicitis. He underwent laparoscopic appendectomy on 22 September and was found to have acute suppurative appendicitis. Uneventful appendectomy was done, but he developed postoperative ileus in the early postoperative period. He was monitored and he slowly regained intestinal activity. His diet was slowly advanced and is now tolerating regular diet. The patient has BPH and had difficulty with voiding and he has an indwelling catheter that will be maintained. He has been started on Flomax. He will see urology prior to having his catheter removed. The patient over the last day or so has developed acute severe inflammation of the metatarsal medical carpophalangeal joints of his right hand. This appears to be an inflammatory arthritis. His uric acid done 2 days ago with normal however. He also has inflammation of the MP joint of the left foot and there is swelling left foot. Patient has been slow in ambulation and appears to be deconditioned. He is discharged and transferred to a nursing care facility. I will follow him up in the office in 1 week for staple removal and an appointment has been made for him to see urology. He has chronic use of oxygen at night and this can be maintained on. He will be given , Levaquin, and metronidazole 5 days. Discharge diagnosis: acute appendicitis Secondary discharge diagnosis: pOSTOPERATIVE ADYNAMIC ILEUS. Acute inflammatory arthritis. 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 Peripheral vascular disease Reason for admission: acute appendicitis Procedures: Laparoscopic appendectomy Pertinent studies/significant findings: CT of abdomen and pelvis with IV contrast Complications: None Exam Temp Pulse Resp BP Pulse Ox 98.8 F 112 H 18 125/66 97 09/29/19 12:00 09/29/19 12:00 09/29/19 12:00 09/29/19 12:00 09/29/19 12:00 - General physical appearance well developed, well nourished, no distress - Eyes PERRL, normal ocular movement - ENT normal pinna, normal nares, normal mucosa, no hearing loss, no congestion - Head Head exam IM: Present: atraumatic, normocephalic - Neck no masses, no bruits, trachea midline, no lymphadenopathy, no venous distension - Cardiovascular Cardiovascular exam IM: Present: normal rate and rhythm - Respiratory other (decreased breath sounds bilaterally, more prominent on the left side) - Abdomen Abdomen: Present: soft, non tender, bowel sounds, surgical scars (. Incisions are healing nicely; good active bowel sounds; no abdominal distention) Hernia: Present: none - Genitourinary Present: other (. Indwelling Franks catheter) - Integumentary Present: no rash, no growths, no abnormal pigmentation - Neurologic Present: normal coordination, normal sensation - Musculoskeletal Present: normal gait, normal posture, other (. Inflammation of metacarpal phalangeal joint of thumb, index and middle finger right hand; inflammation and swelling of the midportion of right) - Psychiatric Present: oriented to time, oriented to person, oriented to place, speech is normal, memory intact Discharge Plan - Patient/Caregiver Discharge Instructions Activity: as per physical therapy Diet: Regular Diet Additional Instructions: Franks catheter in situ with leg bag Prescriptions: Tamsulosin [Flomax] 0.4 mg PO HS #30 cap Transmission Status: Received by ANTONETTE WHITMAN [facility] Levofloxacin [Levaquin] 750 mg PO DAILY #7 tab Prescription Printed metroNIDAZOLE [Metronidazole] 500 mg PO Q8 #15 tab Prescription Printed oxyCODONE/APAP [Percocet 5-325 mg] 1 tab PO Q4HP PRN #40 tab PRN Reason: Pain Prescription Printed predniSONE [Prednisone] 20 mg PO TID #10 tab Prescription Printed Other Amb Orders: OT Discharge Order Location: None Selected Physical Therapy at Discharge - General Location: None Selected - Follow up Plan Follow up with: Jair Chakraborty MD [Primary Care Provider] - Amy Saleh MD [Physician] - 10/05/19 11:15 am Cabrera Severino MD [Physician] - Disposition: Xfer [facility] Care Plan Goals: This discharge packet is provided to you to help keep you informed about your care. We want to ensure you get everything you need when you go home. You will also be receiving a call from us in a few days to follow up with you and see how you are doing since your discharge. This gives us a chance to listen to any concerns you maybe experiencing since you were discharged or any additional needs you may have, as well as providing us feedback on your care experience. We strive to always provide excellent care and thank you for your feedback and for choosing [facility]. Prognosis: Good Rehab Potential: Good I certify that the patient requires SNF services.: Yes Overall status at discharge: patient is progressing back to baseline Pending Studies Resuscitation Status Do Not Resuscitate Diet Full Liquid Diet Start FriSep 27 1430 Acetaminophen (Tylenol) 1,000 mg PO Q8HP PRN; Protocol PRN Reason: Pain Last Admin: 09/27/19 23:46 Dose: 1,000 mg Documented by: Admin: 09/26/19 08:32 Dose: 1,000 mg Documented by: Admin: 09/25/19 20:25 Dose: 1,000 mg Documented by: Admin: 09/25/19 12:47 Dose: 1,000 mg Documented by: RIN Amlodipine Besylate (Norvasc) 10 mg PO QAM [facility] Admin: 09/29/19 08:47 Dose: 10 mg Documented by: Admin: 09/28/19 09:37 Dose: 10 mg Documented by: Admin: 09/27/19 09:22 Dose: 10 mg Documented by: Admin: 09/26/19 08:32 Dose: 10 mg Documented by: Admin: 09/25/19 09:03 Dose: 10 mg Documented by: Admin: 09/24/19 08:23 Dose: 10 mg Documented by: Admin: 09/23/19 09:16 Dose: 10 mg Documented by: Admin: 09/22/19 08:45 Dose: Not Given Documented by: [email or web address] Brimonidine Tartrate (Alphagan P Ophth Drops) 1 gtt OU DAILY [facility] Last Admin: 09/29/19 08:47 Dose: 1 gtt Documented by: Admin: 09/28/19 09:37 Dose: 1 gtt Documented by: Admin: 09/27/19 09:23 Dose: 1 gtt Documented by: Admin: 09/26/19 10:58 Dose: 1 gtt Documented by: Admin: 09/25/19 08:56 Dose: Not Given Documented by: Admin: 09/24/19 08:21 Dose: Not Given Documented by: Admin: 09/23/19 09:19 Dose: Not Given Documented by: Admin: 09/22/19 08:44 Dose: Not Given Documented by: [email or web address] Diphenhydramine HCl (Benadryl) 25 mg PO HSP PRN PRN Reason: Insomnia Last Admin: 09/27/19 20:48 Dose: 25 mg Documented by: ALEAH Ezetimibe (Zetia) 10 mg PO DAILY [facility] Last Admin: 09/29/19 08:46 Dose: 10 mg Documented by: Admin: 09/28/19 09:36 Dose: 10 mg Documented by: Admin: 09/27/19 09:22 Dose: 10 mg Documented by: Admin: 09/26/19 08:32 Dose: 10 mg Documented by: Admin: 09/25/19 09:03 Dose: 10 mg Documented by: Admin: 09/24/19 08:22 Dose: 10 mg Documented by: Admin: 09/23/19 09:16 Dose: 10 mg Documented by: Admin: 09/22/19 08:45 Dose: Not Given Documented by: [id number] Heparin Sodium (Porcine) (Heparin) 5,000 unit SQ Q12 [facility] Last Admin: 09/29/19 08:47 Dose: 5,000 unit Documented by: Admin: 09/28/19 21:19 Dose: 5,000 unit Documented by: Admin: 09/28/19 09:37 Dose: 5,000 unit Documented by: Admin: 09/27/19 20:56 Dose: 5,000 unit Documented by: Admin: 09/27/19 10:34 Dose: 5,000 unit Documented by: FERNANDO Sodium Chloride (Sodium Chloride 0.9%) 1,000 mls @ 100 mls/hr IV .Q10H [facility] Last Infusion: 09/29/19 11:21 Dose: 100 mls/hr Documented by: Admin: 09/29/19 05:17 Dose: Not Given Documented by: Admin: 09/28/19 21:21 Dose: 100 mls/hr Documented by: Admin: 09/28/19 15:27 Dose: Not Given Documented by: Infusion: 09/28/19 02:22 Dose: 100 mls/hr Documented by: Admin: 09/28/19 00:34 Dose: Not Given Documented by: Admin: 09/27/19 16:22 Dose: 100 mls/hr Documented by: Infusion: 09/27/19 14:31 Dose: 100 mls/hr Documented by: Admin: 09/27/19 13:33 Dose: Not Given Documented by: Admin: 09/27/19 04:31 Dose: 100 mls/hr Documented by: Infusion: 09/27/19 03:39 Dose: 100 mls/hr Documented by: Admin: 09/26/19 17:39 Dose: 100 mls/hr Documented by: Admin: 09/26/19 13:36 Dose: Not Given Documented by: Infusion: 09/26/19 06:22 Dose: 100 mls/hr Documented by: Admin: 09/25/19 20:22 Dose: 100 mls/hr Documented by: Admin: 09/25/19 12:31 Dose: Not Given Documented by: RIN Latanoprost (Xalatan Ophth Drops) 1 gtt OS HS [facility] Last Admin: 09/28/19 21:20 Dose: 1 gtt Documented by: Admin: 09/27/19 20:00 Dose: 1 gtt Documented by: Admin: 09/26/19 20:38 Dose: 1 gtt Documented by: Admin: 09/25/19 20:21 Dose: 1 gtt Documented by: Admin: 09/24/19 21:22 Dose: Not Given Documented by: Admin: 09/23/19 20:38 Dose: Not Given Documented by: Admin: 09/22/19 21:07 Dose: Not Given Documented by: Admin: 09/21/19 21:25 Dose: Not Given Documented by: TOMEKA Levofloxacin (Levaquin) 750 mg PO DAILY ARACELI; Protocol Last Admin: 09/29/19 08:46 Dose: 750 mg Documented by: Admin: 09/28/19 17:32 Dose: 750 mg Documented by: CHLOÉ Lisinopril (Zestril) 40 mg PO QAM [facility] Last Admin: 09/29/19 08:46 Dose: 40 mg Documented by: Admin: 09/28/19 09:36 Dose: 40 mg Documented by: Admin: 09/27/19 09:22 Dose: 40 mg Documented by: Admin: 09/26/19 08:32 Dose: 40 mg Documented by: Admin: 09/25/19 09:03 Dose: 40 mg Documented by: Admin: 09/24/19 08:22 Dose: 40 mg Documented by: Admin: 09/23/19 09:16 Dose: 40 mg Documented by: Admin: 09/22/19 08:45 Dose: Not Given Documented by: ERMIAS Melatonin (Melatonin 3mg Tablet) 3 mg PO HSP PRN PRN Reason: Sleep Last Admin: 09/27/19 23:46 Dose: 3 mg Documented by: Admin: 09/26/19 20:37 Dose: 3 mg Documented by: ALEAH Metoprolol Succinate (Toprol Xl) 50 mg PO DAILY [facility] Last Admin: 09/29/19 08:46 Dose: 50 mg Documented by: Admin: 09/28/19 09:36 Dose: 50 mg Documented by: Admin: 09/27/19 09:22 Dose: 50 mg Documented by: Admin: 09/26/19 08:32 Dose: 50 mg Documented by: Admin: 09/25/19 09:03 Dose: 50 mg Documented by: Admin: 09/24/19 08:22 Dose: 50 mg Documented by: Admin: 09/23/19 09:16 Dose: 50 mg Documented by: Admin: 09/22/19 13:37 Dose: 50 mg Documented by: ERMIAS Metronidazole (Flagyl) 500 mg PO Q8 [facility]; Protocol Last Admin: 09/29/19 05:53 Dose: 500 mg Documented by: Admin: 09/28/19 21:50 Dose: 500 mg Documented by: EVELIA Morphine Sulfate (Morphine) 1 - 2 mg IV Q2HP PRN; Protocol PRN Reason: Per Pain Protocol Last Admin: 09/26/19 19:26 Dose: 2 mg Documented by: Admin: 09/25/19 14:16 Dose: 2 mg Documented by: Admin: 09/25/19 10:31 Dose: 2 mg Documented by: Admin: 09/25/19 06:15 Dose: 2 mg Documented by: Admin: 09/24/19 15:13 Dose: 1 mg Documented by: FERNANDO Nystatin (Nystatin) 500,000 units SSP QID [facility] Stop: 10/04/19 16:59 Last Admin: 09/29/19 08:48 Dose: 500,000 units Documented by: Admin: 09/28/19 21:19 Dose: 500,000 units Documented by: Admin: 09/28/19 17:32 Dose: 500,000 units Documented by: Admin: 09/28/19 12:47 Dose: 500,000 units Documented by: Admin: 09/28/19 09:36 Dose: 500,000 units Documented by: Admin: 09/27/19 20:48 Dose: 500,000 units Documented by: Admin: 09/27/19 16:23 Dose: 500,000 units Documented by: FERNANDO Pantoprazole Sodium (Protonix) 40 mg IV DAILY [facility] Admin: 09/29/19 08:46 Dose: 40 mg Documented by: Admin: 09/28/19 09:36 Dose: 40 mg Documented by: Admin: 09/27/19 09:22 Dose: 40 mg Documented by: Admin: 09/26/19 08:31 Dose: 40 mg Documented by: Admin: 09/25/19 09:04 Dose: 40 mg Documented by: Admin: 09/24/19 08:22 Dose: 40 mg Documented by: Admin: 09/23/19 09:16 Dose: 40 mg Documented by: [email or web address] Admin: 09/22/19 08:51 Dose: 40 mg Documented by: [email or web address] Admin: 09/21/19 17:10 Dose: 40 mg Documented by: RIN Merino (Secondbrain) 2 dose PO AC [facility] Last Admin: 09/29/19 11:21 Dose: Not Given Documented by: Admin: 09/29/19 08:47 Dose: 2 dose Documented by: Admin: 09/28/19 17:32 Dose: 2 dose Documented by: Admin: 09/28/19 11:33 Dose: Not Given Documented by: Admin: 09/28/19 09:36 Dose: 2 dose Documented by: CHLOÉ Merino (Secondbrain) 1 dose PO [facility] Last Admin: 09/28/19 21:20 Dose: 1 dose Documented by: Admin: 09/27/19 20:48 Dose: 1 dose Documented by: ALEAH Sodium Chloride (Saline Flush) 10 ml IV Q8 [facility] Last Admin: 09/29/19 05:17 Dose: Not Given Documented by: Admin: 09/28/19 21:21 Dose: Not Given Documented by: Admin: 09/28/19 13:16 Dose: Not Given Documented by: Admin: 09/28/19 05:31 Dose: Not Given Documented by: Admin: 09/27/19 21:19 Dose: Not Given Documented by: Admin: 09/27/19 14:04 Dose: Not Given Documented by: Admin: 09/27/19 05:11 Dose: Not Given Documented by: Admin: 09/26/19 21:29 Dose: Not Given Documented by: Admin: 09/26/19 13:38 Dose: 10 ml Documented by: Admin: 09/26/19 06:00 Dose: Not Given Documented by: Admin: 09/25/19 20:22 Dose: Not Given Documented by: Admin: 09/25/19 14:18 Dose: 10 ml Documented by: RIN Tamsulosin HCl (Flomax) 0.4 mg PO [facility] Last Admin: 09/28/19 21:20 Dose: 0.4 mg Documented by: Admin: 09/27/19 20:48 Dose: 0.4 mg Documented by: ALEAH Tiotropium [place] (Spiriva) 18 mcg INH DAILY [facility] Last Admin: 09/29/19 08:48 Dose: 18 mcg Documented by: Admin: 09/28/19 09:36 Dose: Not Given Documented by: Admin: 09/27/19 09:24 Dose: Not Given Documented by: Admin: 09/26/19 10:58 Dose: Not Given Documented by: [email or web address] Admin: 09/25/19 10:31 Dose: Not Given Documented by: Admin: 09/24/19 08:22 Dose: Not Given Documented by: Admin: 09/23/19 09:25 Dose: Not Given Documented by: Admin: 09/22/19 08:45 Dose: Not Given Documented by: [id number] Shift Summary 09/29/19 04:31 Shift Summary by Guerita Dorado The patient is alert and oriented times four, he denied pain this shift and made frequent position changes in bed without assistance required tonight. He requested to complete his hygiene care independently in his room at bedside at 0100 and completed his own bed bath and layed back down to rest. Franks catheter insitu draining clear yellow urine, no abdominal tenderness, active bowel tones, dressings CDI to his abdomen times 3 lap sites. IV 20 gauge to upper left arm SL, is receiving Flagyl PO now and tolerated his first dose well last NOC. He has heelzup while in bed due to Stage I bilateral heel ulcers, his sacral dressing is CDI and for prophylactic measures - removed and site is pink and blanches. He is up with 1 SBA/gait belt and FWW to ambulate in his room and h alls. P{narinder is to discharge to [facility] in [place] when ready, WBC 14.4 (09/28/2019), CXR showed stable COPD and abdominal XRAY showed improved ileus. Initialized on 09/29/19 04:31 - END OF NOTE
--- NOTE | 2019-09-29 21:19 | Infectious Disease Prog Note ---
Subjective Patient information: Note initiated : 09/29/19 at 8:57 pm Service Date, if different from initiated Date: [] Patient: Heber Stewart 84 y/o M admitted on 09/21/19 for abdominal pain. Chief Complaint: [] Interval history: Pt doing fine except for pain in multiple joints. Mentions that he has bad osteoarthritis and has been on some pain meds and supplements per PCP. Denied any n/v, diarrhea, fever, chills. Has rinaldi. Objective Objective Narrative: ao x 3, in mild distress due to pain no thrush chest cta s1 s2 normal bs ++, nttd, joce look fine without any redness, drainage, swelling has tenderness over multiple joints: left ankle, b/l wrists, b/l knees. Has pain with movement. No swelling or redness or warmth no leg edema - Vital Signs Vital signs: Vital Signs Temp Pulse Resp BP BP BP Pulse Ox 09/29/19 13:55 36.8 C 95 H 20 120/62 97 09/29/19 12:00 37.1 C 112 H 18 125/66 97 09/29/19 08:00 104 H 18 94 09/29/19 07:24 37.7 C H 104 H 18 118/59 94 09/29/19 04:44 36.8 C 110 H 24 H 135/78 92 09/28/19 23:32 37.4 C H 108 H 24 H 124/69 92 Intake and Output 09/29/19 09/29/19 09/29/19 05:59 13:59 21:59 Intake Total 200 1240 Output Total 1350 350 Balance -1150 890 Intake: IV 1000 Sodium Chloride 0.9% 1,000 ml @ 1000 100 mls/hr IV .Q10H [facility] Rx#: [id number] Oral 200 240 Output: Urine Catheter Amount 350 Void Amount 1350 Other: Meal Lunch Percent of Meal Consumed 100% Feeding Ability Independent Urine Appearance Clear Clear Uretheral (Rinaldi) Clear Urine Color Dark Yellow Dark Yellow Uretheral (Rinaldi) Bright Yellow Urine Odor Strong Normal Uretheral (Rinaldi) Strong Intake & Output: Intake & Output 09/29/19 09/29/19 09/29/19 05:59 13:59 21:59 Intake Total 200 1240 Output Total 1350 350 Balance -1150 890 Intake: IV 1000 Sodium Chloride 0.9% 1,000 ml @ 1000 100 mls/hr IV .Q10H [facility] Rx#: [id number] Oral 200 240 Output: Urine Catheter Amount 350 Void Amount 1350 Other: Meal Lunch Percent of Meal Consumed 100% Feeding Ability Independent Urine Appearance Clear Clear Uretheral (Rinaldi) Clear Urine Color Dark Yellow Dark Yellow Uretheral (Rinaldi) Bright Yellow Urine Odor Strong Normal Uretheral (Rinaldi) Strong - Lab 09/29/19 05:30 09/28/19 06:00 Most recent lab results Calcium 8.6 mg/dl (8.6-10.4) 09/28/19 06:00 Phosphorus 1.9 mg/dL (2.7-4.5) L 09/28/19 06:00 Magnesium 1.7 mg/dL (1.6-2.5) 09/28/19 06:00 Microbiology 09/27/19 10:10 Blood Blood Culture - Preliminary 09/27/19 10:18 Blood Blood Culture - Preliminary 09/27/19 10:13 Urine - Rinaldi Urine Culture - Final Assessment and Plan - Narrative A/P Narrative: A: 1. Acute appendicitis with small perforation: POD 7 after laparoscopic appendectomy - CT done 09/24 r/o any intra-abd fluid collection, perforation. Showed atypical ileus with a transition point at splenic flexure - clinical exam suggests marked improvement in abdominal tenderness and peritoneal signs. 2. Postoperative ileus: resolved. bowel sounds +, has soft BMs 3. Leucocytosis: improving - WBC 16.6K today <--------16.4K in am and 14.4 in pm <----- 17.9k today [78.5% PMNs] <--------15.8k <----------14.4k on 09/25 - seems sec to pseudogout?, osteoarthritis. I don't think it is due to abdominal infection given improved abdominal exam, neg CT imaging, neg blood and urine Cx, absence of fever, pt on appropriate antibiotics. If it persists on f/u could consider ruling out other infectious causes such as prostatitis. A tagged WBC scan could be considered. 4. BPH: had multiple attempts for straight cath. Could have led to bacterial translocation from tract into systemic circulation - on Tamsulosin, rinaldi 5. Polyarthritis: Tenderness over multiple joints (left ankle, b/l wrists, b/l knees) and pain with movement - ? pseudogout, osteoarthritis Recommendations: - Continue PO Metronidazole 500 mg q8 hrs and PO Levofloxacin 750 mg q24 for another 5-day course (stop date of 10/03/2019) - will follow blood Cx and urine Cx. If positive, will make changes to antibiotics. - continue PO Nystatin 5 ml swish and spit qid for 5 days (stop date of 10/03/2019) - suggest repeating WBC on day of outpatient f/u with surgery for staple removal. I would be glad to f/u patient and assist in r/o infectious causes if WBC continue to be elevated at surgery f/u visit Plan d/w Dr. Delfino Vaca MD Infectious diseases
== END 2019-09-29 13:35 | DRG 339 ==
LOC: ED 11:05 → MEDSUR 15:00
PROVIDERS: ADMIT Surgery; ATTEND Family Medicine Adult Medicine